=== PATIENT | male | born 1960 | race Caucasian/White ===

== ENCOUNTER 2020-09-18 16:46 | Outpatient (REF) | payer OTHER, SELFPAY | END 2020-09-18 16:47 | disposition home or self-care (01) | LOC: HO.LAB 16:46 | PROVIDERS: Visit Provider Internal Medicine | DX: Z20.828 Contact with and (suspected) exposure to other viral communicable diseases (principal) | CPT/HCPCS: C9803; U0003 ==

== ENCOUNTER → 2021-01-25 15:49 | Outpatient (BNVA) | payer OTHER, SELFPAY | PROVIDERS: PCP Internal Medicine; Visit Provider Urology ==

== ENCOUNTER 2021-01-26 06:03 | Outpatient (REF) | payer OTHER, SELFPAY ==
[2021-01-26 06:58] LABS: MANUAL DIFF FLAG NO
[2021-01-26 07:06] LABS: Basophils Absolute Auto 0.1 X10*3/uL (0.0-0.2); Basophils Percent Auto 0.9 % (0-2); Eosinophils Absolute Auto 0.4 X10*3/uL (0.0-0.4); Eosinophils Percent Auto 7.1 % (0-4); Hematocrit 39.1 % (42-52); Hemoglobin 12.9 g/dl (14.0-18.0); Imm Gran Abs Auto 0.01 X10*3/uL (0.00-0.03); Imm Gran Pct Auto 0.2 % (0.0-0.4); Lymphocytes Absolute Auto 1.8 X10*3/uL (1.2-4.9); Mean Corpuscular Hemoglobin 30.3 pg (27.0-33.0); Mean Corpuscular Volume 91.8 fL (80-98); Mean Platelet Volume 10.3 fL (9.4-12.4); Monocytes Absolute Auto 0.6 X10*3/uL (0.1-1.2); Monocytes Percent Auto 10.2 % (2-11); Neutrophils Absolute Auto 2.8 X10*3/uL (2.0-8.3); Neutrophils Percent Auto 49.6 % (45-73); Platelet Count 239 X10*3/uL (160-400); Red Blood Count 4.26 X10*6/uL (4.60-5.80); Red Cell Distribution Width 12.7 % (11.0-16.0); White Blood Count 5.7 X10*3/uL (4.8-10.8)
[2021-01-26 07:26] LABS: Alanine Aminotransferase 30 U/L (0-40); Albumin Level 4.4 g/dL (3.5-5.0); Alkaline Phosphatase 54 U/L (39-117); Anion Gap 13 (12-20); Aspartate Amino Transferase 19 U/L (5-37); Bilirubin Total 0.7 mg/dL (0.0-1.0); Blood Urea Nitrogen 25 mg/dL (9-16); Calcium 9.9 mg/dL (8.4-10.2); Carbon Dioxide 29 mmol/L (22-29); Chloride 105 mmol/L (96-108); Cholesterol 150 mg/dL; Estimated Glomerular Filt Rate > 60; Glucose Fasting 118 mg/dL (60-99); HDL Cholesterol 52 mg/dL; LDL Cholesterol Calculated 77 mg/dl; Potassium 4.4 mmol/L (3.3-5.1); Sodium 143 mmol/L (135-145); Total Protein 6.9 g/dL (6.5-8.0); Triglycerides 106 mg/dL
[2021-01-26 07:47] LABS: Thyroid Stimulating Hormone 1.56 uIU/mL (0.32-4.0)
== END 2021-01-26 06:04 | disposition home or self-care (01) ==
LOC: HO.LAB 06:03
PROVIDERS: PCP Internal Medicine; Visit Provider Internal Medicine
DX: Z00.00 Encounter for general adult medical examination without abnormal findings (principal); E11.9 Type 2 diabetes mellitus without complications; E03.9 Hypothyroidism, unspecified
CPT/HCPCS: 36415; 80053; 80061; 84443; 85025

== ENCOUNTER 2021-10-12 13:46 | Outpatient (REF) | payer OTHER, SELFPAY ==
--- NOTE | ~2021-10-12 | XR_ITS ---
EXAMINATION: XR RIBS, LEFT CLINICAL INFORMATION: Chest pain COMPARISON: Left rib x-rays 08/17/2019 TECHNIQUE: 3 views of the left ribs were obtained. FINDINGS: Artifact silhouette is normal in size. Lungs are mildly hypoinflated. Subtle bibasilar linear opacities are most suggestive of atelectasis. Minimally displaced fractures of the left lateral seventh and eighth ribs. Surgical changes of the left shoulder. XR/XR ribs LT min 3V w CXR1V IMPRESSION: Minimally displaced fractures of the left lateral seventh and eighth ribs. No pneumothorax. Findings to be called to the ordering clinician by a [place] Radiology Physician Terrazzo Journeyman.
== END 2021-10-12 13:47 | disposition home or self-care (01) ==
LOC: HO.XRAY 13:46
PROVIDERS: PCP Internal Medicine; Visit Provider Internal Medicine
DX: R07.9 Chest pain, unspecified (principal)
CPT/HCPCS: 71101

== ENCOUNTER 2022-06-11 17:00 | Outpatient (RCR) | payer OTHER, SELFPAY ==
--- NOTE | 2022-04-26 13:53 | MHC.PT.EP ---
[facility] [place] Office [place] Office [place] Office [address] [place] [address] [phone] F: [phone] F: [phone] F: [phone] F: [phone] Physical Therapy Plan of Care Date of Evaluation: Date of Surgery: N/A Diagnosis: myalgia (RC) Assessment: pt is a 62 y/o male presenting to physical therapy w/ referring diagnosis of myalgia. Signs and symptoms consistent w/ lumbar radiculopathy. Impairments include pain, decreased range of motion, decreased strength, impaired functional mobility, impaired postural awareness, and gait deviations. pt is a good candidate for skilled PT due to age, potential remediation of impairments, typical disease/condition progression and prognosis, comorbidities, and motivation. pt would benefit from tailored strengthening and stretching exercise program, functional training, gait training, postural re-training, neuromuscular re-education, modalities as needed for pain, equipment safety demonstration. Frequency and Duration: The patient will be seen 2x/wk for 6 wks Short Term Goals: pt will be I w/ HEP to promote self-management of condition. pt will demo proper seated posture w/ lumbar roll to promote neutral spine w/ seated ADLs. Water Service Supervisor Goals: pt will demo proper lifting mechanics x5 reps w/ no verbal cueing to promote neutral spine w/ work-related tasks. pt will report a statistically significant improvement in self-reported outcome measure to promote return to PLOF. Treatment Plan: Modalities to reduce pain, spasms and effusion. Manual therapy to restore motion and function. Therapeutic exercise to improve strength and flexibility. Neuromuscular re-education for posture and balance. Therapeutic activities to return to functional activities of daily living. Electronically signed by: Dia Vincent PT, DPT Please sign and return to therapist. Thank you for your referral.
--- NOTE | 2022-07-04 10:17 | MHC.PT.DC ---
[facility] [place] Office [place] Office [place] Office [address] [place] [address] [phone] F: [phone] F: [phone] F: [phone] F: [phone] Physical Therapy Discharge Report Diagnosis: myalgia (RC) Date of Surgery: N/A Date of Evaluation: 04/24/22 Date of Discharge: 07/04/22 Treatments to Date: 9 Cancellations to Date: 4 No Shows to Date: 0 Discharge Status: Patient Elected to Stop Discharge Summary: The patient discovered he had a $50 co-pay for his physical therapy visits and stated this was too much of a financial commitment to continue with his rehab at this time. He was making significant improvement in his pain frequency and intensity. His radicular symptoms centralized quickly with a repeated lumbar extension protocol. He was instructed in a spinal and core stability program as well as general lower extremity stretching with which he is independent with at this time. The patient was instructed to continue with his exercise program at this time and he is discharged from this physical therapy plan of care per his request. Electronically signed by: Dia Vincent PT, DPT Please sign and return to therapist. Thank you for your referral.
== END 2022-07-04 10:17 | disposition home or self-care (01) ==
LOC: HO.PT 17:00
PROVIDERS: Visit Provider Nurse Practitioner Family
DX: M79.18 Myalgia, other site (principal)
CPT/HCPCS: 97110; 97162; 97530

== ENCOUNTER → 2022-07-05 14:58 | Outpatient (BNVA) | payer OTHER, SELFPAY | PROVIDERS: PCP Internal Medicine; Visit Provider Urology | DX: N52.01 Erectile dysfunction due to arterial insufficiency (principal); N32.0 Bladder-neck obstruction | CPT/HCPCS: 51798; 99212 ==

== ENCOUNTER 2022-07-22 06:10 | Outpatient (REF) | payer OTHER, SELFPAY ==
[2022-07-22 07:30] LABS: Hematocrit 39.2 % (42.0-52.0); Mean Corpuscular HGB Conc 33.2 g/dl (31.0-36.0); Mean Corpuscular Hemoglobin 30.1 pg (27.0-33.0); Mean Corpuscular Volume 90.7 fL (80.0-98.0); Mean Platelet Volume 10.4 fL (9.4-12.4); Platelet Count 242 X10*3/uL (160-400); Red Blood Count 4.32 X10*6/uL (4.60-5.80); Red Cell Distribution Width 12.5 % (11.0-16.0); White Blood Count 6.3 X10*3/uL (4.8-10.8)
[2022-07-22 08:07] LABS: Alanine Aminotransferase 33 U/L (0-40); Albumin Level 4.4 g/dL (3.5-5.0); Alkaline Phosphatase 58 U/L (39-117); Anion Gap 16 (12-20); Aspartate Amino Transferase 21 U/L (5-37); Bilirubin Total 0.8 mg/dL (0.0-1.0); Blood Urea Nitrogen 20 mg/dL (9-16); Calcium 9.3 mg/dL (8.4-10.2); Carbon Dioxide 27 mmol/L (22-29); Chloride 103 mmol/L (96-108); Cholesterol 175 mg/dL; Estimated Glomerular Filt Rate > 60; Glucose Fasting 116 mg/dL (60-99); HDL Cholesterol 61 mg/dL; LDL Cholesterol Calculated 72 mg/dl; Potassium 4.3 mmol/L (3.3-5.1); Sodium 142 mmol/L (135-145); Triglycerides 213 mg/dL
[2022-07-22 08:33] LABS: Prostate Specific Antigen 0.66 ng/mL (<0.05-4.0); TSH reflex Free T4 1.69 uIU/mL (0.32-4.0)
[2022-07-22 08:34] LABS: Folate > 20.0 ng/mL (> or = 4.0); Vitamin B12 499 pg/mL (200-900)
== END 2022-07-22 06:11 | disposition home or self-care (01) ==
LOC: HO.LAB 06:10
PROVIDERS: Absent Provider Urology; PCP Internal Medicine; Visit Provider Nurse Practitioner Family
DX: Z00.00 Encounter for general adult medical examination without abnormal findings (principal); Z12.5 Encounter for screening for malignant neoplasm of prostate; N32.0 Bladder-neck obstruction
CPT/HCPCS: 36415; 80053; 80061; 82306; 82607; 82746; 84153; 84443; 85027

== ENCOUNTER 2022-08-15 16:11 | Outpatient (REF) | payer OTHER, SELFPAY ==
[2022-08-16 08:58] LABS: Estimated Average Glucose 100 mg/dL; Hemoglobin A1c % 5.1 %
== END 2022-08-15 16:12 | disposition home or self-care (01) ==
LOC: HO.LAB 16:11
PROVIDERS: PCP Internal Medicine; Visit Provider Nurse Practitioner Family
DX: R73.01 Impaired fasting glucose (principal); Z12.5 Encounter for screening for malignant neoplasm of prostate
CPT/HCPCS: 36415; 83036; 84153

== ENCOUNTER 2022-10-03 12:54 | Day surgery (SDC) | payer OTHER, SELFPAY ==
[2022-10-03 13:05] VITALS: BMI 33.0
[2022-10-03 13:20] VITALS: BP 178/95; PULSE 81; RESP 16; TEMP 36.9; O2SAT 96
[2022-10-03] MEDS: Lactated Ringers 1,000 ML 80 ML IVCONT (13:30)
--- NOTE | 2022-10-03 14:04 | HO.ANESPROP2 ---
HPI - Anesthesia Eval Consult details Narrative: 62 M w/ hiatal hernia, GERD, HARMAN not on CPAP, p/f EGD PMFSH Active Problems Active Problems: All Active Problems (Updated 10/02/22 @ 09:54 by Toya Bay RN) Bladder outlet obstruction (Acute) Erectile dysfunction due to arterial insufficiency (Acute) Left-sided chest pain (Acute) Left buttock pain (Acute) Adult general medical exam (Acute) Obesity (BMI 30.0-34.9) (Acute) Elevated fasting glucose (Acute) Eczema (Acute) Nocturia (Acute) Hypertension (Acute) Past Medical History Medical History Anemia Atherosclerotic cardiovascular disease Barretts esophagus Basal cell carcinoma of skin BPH (benign prostatic hyperplasia) Chest discomfort COPD (chronic obstructive pulmonary disease) Eczema Fall GERD (gastroesophageal reflux disease) Hematoma of right lower leg Hiatal hernia Hypertension Nocturia Other and unspecified hyperlipidemia Sinus infection 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 Brother No problems noted. Brother No problems noted. Brother No problems noted. Sister No problems noted. Sister No problems noted. Sister No problems noted. Sister No problems noted. Son No problems noted. Son No problems noted. Daughter No problems noted. Family history of problems with anesthesia: No Surgical History Surgical History H/O shoulder surgery History of colonoscopy S/P LASIK surgery of both eyes History of Problems with Anesthesia: No Social History Social History Housing: House Alcohol intake: current Alcohol intake frequency: 0-2 drinks per day Patient Tobacco Use Status: Former Tobacco user Tobacco use type: Cigarette e-Cigarette/Vaping Use: Never Used Second Hand Smoke Exposure: No Use of substances other than those prescribed or required for medical reasons: No Are you DNR?: No Advance Directives: No Advance Directives Information Provided: Yes service: No Current occupational status: employed Cognitive needs: No Hearing needs: No Vision needs: No Meds Allergies Allergy/AdvReac Type Severity Reaction Status Date / Time ciprofloxacin [From Cipro] Allergy Mild SWELLING, Verified 07/01/22 16:25 anaphylaxis Home Medications Medication Instructions Recorded Confirmed Last Taken Type aspirin 81 mg tablet,delayed 81 mg PO DAILY 09/05/20 10/03/22 09/26/22 History release (Adult Low Dose Aspirin) omeprazole 20 mg capsule,delayed 20 mg PO DAILY 10/02/22 10/03/22 Unknown History release fluticasone propionate 220 1 puff inhalation BID 10/03/22 10/03/22 Unknown History mcg/actuation HFA aerosol inhaler (Flovent HFA) Exam Exam Date and Time: October 03, 2022 1404 Height,Weight and Vital Signs: Height 5 ft 6 in Weight 205 lb Last Vital Signs Temp 98.4 F 10/03/22 13:20 Pulse 81 10/03/22 13:20 Resp 16 10/03/22 13:20 BP 178/95 H 10/03/22 13:20 Pulse Ox 96 10/03/22 13:20 O2 Del Method 10/03/22 13:20 Airway Mallampati Class: III TM Dist: >3cm Neck ROM: Full Loose/Missing/Broken Teeth: Yes Assessment and Plan Assessment Anesthesia Assessment: Anesthesia Plan Discussed and Chart Reviewed Final Anesthetic Review Family History of Problems with Anesthesia: No History of Problems with Anesthesia: No NPO: Yes ASA Class: III Final Preanesthetic Review: No Changes in Pt Med Stat, Meds/Allgs Chart Reviewed, Consent Obtained/Reviewed and Anes Risks/Benef Reviewed Patient Risk: Intermediate Procedure Risk: Low Anesthetic Plan Anesthetic Plan: MAC: Disposition: Standard PACU
[2022-10-03 14:47] VITALS: BP 147/80; PULSE 80; RESP 18; TEMP 36.9; O2SAT 92
--- NOTE | 2022-10-03 14:57 | P.BOP_ITS ---
Brief Operative Note Date of Service: 10/03/22 Pre-op diagnosis: GERD, Graham's Post-op diagnosis: other (Same, Hiatal hernia) Procedure: EGD with biopsies Surgeon: Myron Trujillo Anesthesia: MAC Was an Snath Handle Assembler used for this Procedure?: No Estimated blood loss (mL): 2.0 Pathology: other (A. EG Junction at 35cm) Condition: stable Disposition: PACU
[2022-10-03 15:02] VITALS: BP 154/80; PULSE 68; RESP 16; TEMP 36.8; O2SAT 95
--- NOTE | 2022-10-03 22:22 | OP_ITS ---
SURGEON: Myron Trujillo MD INDICATIONS: The patient presents for followup of gastroesophageal reflux and Graham's esophagus. Full consent has been obtained from him for this, including risks of bleeding and perforation. PREOPERATIVE DIAGNOSIS: POSTOPERATIVE DIAGNOSIS: PROCEDURE PERFORMED: Esophagogastroduodenoscopy with biopsies. ESTIMATED BLOOD LOSS: COMPLICATIONS: ANESTHESIA: Monitored anesthesia care. ASSISTANTS: SPECIMENS: PREOPERATIVE DIAGNOSES: Gastroesophageal reflux and Graham's esophagus. POSTOPERATIVE DIAGNOSES: Gastroesophageal reflux and Graham's esophagus, hiatal hernia. DESCRIPTION OF PROCEDURE: The patient was placed in the left lateral decubitus position. The Olympus video gastroscope was passed in the posterior oropharynx and upper esophagus under direct vision. The scope was passed slowly to the distal esophagus. The gastroesophageal junction appeared at 35 cm. There was a very minimal irregularity but no evidence of esophagitis nor any definitive evidence of Graham's mucosa. The scope entered into the stomach. There was a small to moderate-sized hiatal hernia. The hiatal hernia mucosa appeared normal. The scope was advanced to the pylorus, and the duodenum was cannulated to the descending portion. The duodenum including the bulb appeared normal without mass or ulceration. The scope was withdrawn back to the stomach. The gastric antrum and body appeared normal with good peristalsis. The scope was retroflexed visualizing the proximal stomach carefully which appeared normal, without any sign of mass or ulceration. The scope was straightened and withdrawn back to the esophagus. Multiple biopsies were obtained at the EG junction at 35 cm. Proximal to this, the esophageal mucosa appeared normal. The scope was withdrawn from the patient. He tolerated the procedure well and was returned to the recovery area in stable condition. IMPRESSION: Hiatal hernia, gastroesophageal reflux, history of Graham's esophagus. PLAN: The results of the biopsies will be checked. If there is evidence of Graham's esophagus without dysplasia, I would recommend a repeat upper endoscopy in 3 years. If there are no changes of Graham esophagus seen on today's biopsies, then I would probably hold off on any further upper endoscopies given that the initial endoscopy in 2019 had revealed only a tiny area of the Graham's mucosa. I did advise him to continue his daily omeprazole. He was advised to resume his aspirin in 1 week. He was advised not to use any NSAIDs for 1 week. He was advised to continue to try to watch his diet and not eat for several hours before bedtime in order to minimize reflux symptoms as well. MD MORRO Kenyon/EL / [phone] MTDD
== END 2022-10-03 15:49 | disposition home or self-care (01) ==
PROVIDERS: PCP Internal Medicine; Visit Provider Internal Medicine
PROC: 0DJ08ZZ Inspection of Upper Intestinal Tract, Via Natural or Artificial Opening Endoscopic (ICD-10-PCS; CPT 43235; principal; 2022-10-03 14:00)
DX: K21.9 Gastro-esophageal reflux disease without esophagitis (principal); K22.70 Barrett's esophagus without dysplasia; K44.9 Diaphragmatic hernia without obstruction or gangrene; Z79.899 Other long term (current) drug therapy; Z79.82 Long term (current) use of aspirin; Z88.1 Allergy status to other antibiotic agents; Z87.891 Personal history of nicotine dependence
CPT/HCPCS: 43239; 88305

== ENCOUNTER 2023-05-06 09:33 | Outpatient (AMB) | payer OTHER, SELFPAY ==
--- NOTE | 2023-05-06 09:35 | MHC.PC.OV ---
Vital Signs 05/06/23 09:37 Height 5 ft 6 in Weight 215 lb 6 oz BMI 34.8 BP 130/70 Blood Pressure Location Lt brachial Position Sitting Pulse 62 Pulse Source Pulse Oximeter Pulse Oximetry (%) 95 Oxygen Delivery Method Room Air Intake Visit Reasons: Medication review Intake Note: Patient is here to follow up on medication review. Complain of rash on lower back, and sharp pain in left toes. Machine Featheredger And Reducer Required: No Director Of Accounts Payable: Not Required per policy Accompanied by: Self / Same As Patient Allergies ciprofloxacin [From Cipro] Allergy (Mild, Verified 05/06/23 09:37) SWELLING, anaphylaxis Medication List - Last Reconciled 05/06/23 by Aren Vaughn MD aspirin (Adult Low Dose Aspirin) 81 mg PO DAILY atorvastatin 80 mg PO DAILY fluticasone propionate 220 mcg/actuation (Flovent HFA) 1 puff inhalation BID fluticasone propionate 50 mcg/actuation 1 spray intranasal DAILY hydrochlorothiazide 25 mg PO QAM lisinopril 40 mg PO DAILY metoprolol succinate ER 25 mg PO DAILY omeprazole 20 mg PO DAILY sildenafil 100 mg PO DAILY PRN 30 days tamsulosin 0.4 mg PO BEDTIME 90 days tiotropium bromide 1 cap PO DAILY 90 days Tobacco use date assessed: 05/06/23 Fall risk assessment: 1 Fall in past year Last assessed Fall Risk: 05/06/23 Dental Screening Dental Screen Date: 05/06/23 Did you have a dental visit in the last 12 months?: Yes Did you have a dental problem in the last 6 months where you did not have access to dental care?: No Was dental information given to patient?: Patient has dentist HPI Medication review HPI Details HTN hyperlipidemia and GERD on rx; stable [facility] Medical History (Updated 05/06/23 @ 09:55 by Aren Vaughn MD) Anemia Atherosclerotic cardiovascular disease Barretts esophagus Basal cell carcinoma of skin BPH (benign prostatic hyperplasia) Chest discomfort COPD (chronic obstructive pulmonary disease) Eczema Fall GERD (gastroesophageal reflux disease) Hematoma of right lower leg Hiatal hernia Hypertension Nocturia Other and unspecified hyperlipidemia Sinus infection 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 Brother No problems noted. Brother No problems noted. Brother No problems noted. Sister No problems noted. Sister No problems noted. Sister No problems noted. Sister No problems noted. Son No problems noted. Son No problems noted. Daughter No problems noted. Social History Housing: House Alcohol intake: current Alcohol intake frequency: 0-2 drinks per day Patient Tobacco Use Status: Former Tobacco user Tobacco use type: Cigarette e-Cigarette/Vaping Use: Never Used Second Hand Smoke Exposure: No service: No Current occupational status: employed Cognitive needs: No Hearing needs: Yes (hearing aide) Vision needs: Yes (glasses) Questionnaire PHQ-9 Over the last 2 weeks, how often have you been bothered by any of the following problems? 1. Little interest or pleasure in doing things: not at all 2. Feeling down, depressed, or hopeless: not at all 3. Trouble falling or staying asleep, or sleeping too much: not at all 4. Feeling tired or having little energy: not at all 5. Poor appetite or overeating: not at all 6. Feeling bad about yourself - or that you are a failure or have let yourself or your family down: not at all 7. Trouble concentrating on things, such as reading the newspaper or watching television: not at all 8. Moving or speaking so slowly that other people could have noticed. Or the opposite - being so fidgety or restless that you have been moving around a lot more than usual: not at all 9. Thoughts that you would be better off or of hurting yourself in some way: not at all Total score: 0 Depression Screening Interpretation: Negative 04764 - PHQ-9 Billing: Yes Source: Developed by Drs. Myron Coleman, Izabella Brenner, Jeffry Martin and colleagues, with an educational violette from [employer]. Thrive Questionnaire Date Thrive assessed: 05/06/23 I am a: Patient What is your living situation today?: I have a steady place to live Within the past 12 months, did the food you bought not last and you didn't have the money to get more?: Never true Within the past 12 months, did you worry whether your food would run out before you got money to buy more?: Never true Do you have trouble paying for medicines?: No Do you have trouble getting transportation to medical appointments?: No Do you have trouble paying your heating and electricity bill?: No Do you have trouble taking care of your child, family member or friend?: No Do you have trouble with day-to-day activities such as bathing, preparing meals, shopping, managing finances, etc.?: No Are you currently unemployed and looking for a job?: No Are you interested in more education?: No Currently or been in a relationship where the following occur: no concerns reported AUDIT C Alcohol Use Questionnaire (AUDIT-C) 1. How often do you have a drink containing alcohol?: 4 or more times a week 2. How many drinks containing alcohol do you have on a typical day when you are drinking?: 1 or 2 Total Score: 4 Score Reviewed/Action Taken: Yes DAV-7 AMB Questionnaire DAV-7 Date DAV - 7 assessed: 05/06/23 Feeling nervous, anxious, or on edge: 0 = Not at all Not being able to stop or control worryin = Not at all Worrying too much about different things: 0 = Not at all Trouble relaxin = Not at all Being so restless that it is hard to sit still: 0 = Not at all Becoming easily annoyed or irritable: 0 = Not at all Feeling afraid as if something awful might happen: 0 = Not at all Total DAV-7 score (0-4 normal; 5-9 mild; 10-14 moderate; 15-21 severe): 0 Source: Developed by Drs. Myron Coleman, Izabella Brenner, Jeffry Martin and colleagues, with an educational violette from [employer]. DAV-7 Assessment Billing DAV-7 Assessment Tool: DAV-7 Assessment 57060 Review of Systems Const Denies chills, Denies headache(s) and Denies weight loss ENT Denies headache(s) Card Denies chest pain, Denies syncope, Denies irregular heart rhythm and Denies dyspnea Resp Denies chest congestion, Denies cough and Denies dyspnea GI Denies abdominal pain, Denies change in stool character, Denies nausea and Denies vomiting Musc Denies deformity and Denies joint swelling Neuro Denies syncope and Denies headache(s) Physical exam (Primary Care) Vital Signs: Last Vital Signs Pulse 62 05/06/23 09:37 BP 130/70 05/06/23 09:37 Pulse Ox 95 05/06/23 09:37 Oxygen Delivery Method Room Air 05/06/23 09:37 BMI result Body Mass Index 34.8 Tobacco/Smoking Status: Tobacco use Status Tobacco use date assessed 05/06/23 05/06/23 09:44 Patient Tobacco Use Status Former Tobacco user 05/06/23 09:44 Tobacco use type Cigarette 05/06/23 09:44 e-Cigarette/Vaping Use Never Used 05/06/23 09:44 PHQ-9: PHQ-9 Score PHQ-9: Total score 0 05/06/23 09:44 Depression Screening Interpretation: Negative Thrive Assessment: Date of Thrive Assessment Date Thrive assessed 05/06/23 05/06/23 09:44 Currently or been in a relationship where the following occur: no concerns reported Const General: cooperative and no acute distress Orientation/consciousness: patient oriented x3 HENMT Head: Yes normocephalic and Yes atraumatic Ears: TM's normal bilaterally General nose exam: Normal nasal mucous membranes and turbinates present Face and sinus: Yes sinuses nontender Mouth: oropharynx normal and moist mucous membranes Throat: Yes posterior oropharynx normal Eyes General: appearance normal, both eyes and all related structures Pupils: Equal, round and reactive pupils present EOM: EOMs intact bilaterally Neck Neck: Yes normal visual inspection, Yes full ROM and Yes no lymphadenopathy Thyroid: Thyroid normal Resp Effort & Inspection: normal respiratory effort and able to speak in complete sentences Auscultation: clear to auscultation bilaterally, no crackles, no rales, no rhonchi and no wheezes Cardio Rate: regular rate Rhythm: regular rhythm Heart sounds: S1 normal heart sound present, S2 normal heart sound present and no murmurs GI Palpation (GI): Soft to palpation, not firm, nontender, no guarding, not rigid and no hepatosplenomegaly Auscultation: normal bowel sounds General: No CVA tenderness Back/Spine/Pelvis Back: No CVA tenderness Skin General skin exam: no rashes or lesions noted Neuro General: patient oriented x3 Cranial nerves: Yes Equal, round and reactive pupils present Gait exam (Neuro): Normal gait present Extrem General: Yes full ROM and No edema Assessment and Plan Assessment & Plan (1) Hypertension: Code(s): I10 - Essential (primary) hypertension Plan: do labs (2) Hyperlipidemia: Code(s): E78.5 - Hyperlipidemia, unspecified Plan: stable; same meds (3) Chronic GERD: Code(s): K21.9 - Gastro-esophageal reflux disease without esophagitis Plan: stable; same meds Orders: Orders Comprehensive [place]. Panel Fast Today N28.9 - Disorder of kidney and ureter, unspecified Lipid Panel Today E78.5 - Hyperlipidemia, unspecified Prostate Specific Antigen Scr Today Z00.00 - Encounter for general adult medical examination without abnormal findings Thyroid Stimulating Hormone Today E03.9 - Hypothyroidism, unspecified Complete Blood Count Auto Diff Today D64.9 - Anemia, unspecified XR foot LT 2V Today M79.672 - Pain in left foot XR knee LT 2V Today M25.569 - Pain in unspecified knee Coding Level of Care Code Est Pt Level 4 (90000) Diagnoses Hypertension I10 Hyperlipidemia E78.5 Chronic GERD K21.9 Additional Codes DAV-7 Assessment Billing - DAV-7 Assessment Tool: DAV-7 Assessment 12757 ([id number])
[2023-05-06 09:37] VITALS: BP 130/70; PULSE 62; O2SAT 95; BMI 34.8
== END 2023-05-06 10:42 | disposition home or self-care (01) ==
PROVIDERS: PCP Internal Medicine; Visit Provider Internal Medicine
DX: I10 Essential (primary) hypertension (principal); E78.5 Hyperlipidemia, unspecified; K21.9 Gastro-esophageal reflux disease without esophagitis
CPT/HCPCS: 99214

== ENCOUNTER 2023-05-10 09:09 | Outpatient (REF) | payer OTHER, SELFPAY ==
[2023-05-10 09:19] LABS: MANUAL DIFF FLAG NO
[2023-05-10 10:14] LABS: Basophils Absolute Auto 0.1 X10*3/uL (0.0-0.2); Basophils Percent Auto 0.9 % (0-2); Eosinophils Absolute Auto 0.4 X10*3/uL (0.0-0.4); Eosinophils Percent Auto 7.6 % (0-4); Hematocrit 40.2 % (42.0-52.0); Hemoglobin 13.3 g/dl (14.0-18.0); Imm Gran Abs Auto 0.02 X10*3/uL (0.00-0.03); Imm Gran Pct Auto 0.4 % (0.0-0.4); Lymphocytes Absolute Auto 1.8 X10*3/uL (1.2-4.9); Lymphocytes Percent Auto 32.2 % (20-40); Mean Corpuscular HGB Conc 33.1 g/dl (31.0-36.0); Mean Corpuscular Hemoglobin 30.2 pg (27.0-33.0); Mean Corpuscular Volume 91.2 fL (80.0-98.0); Mean Platelet Volume 10.2 fL (9.4-12.4); Monocytes Absolute Auto 0.4 X10*3/uL (0.1-1.2); Monocytes Percent Auto 7.6 % (2-11); Neutrophils Absolute Auto 2.8 x10*3/uL (2.0-8.3); Neutrophils Percent Auto 51.3 % (45-73); Platelet Count 248 X10*3/uL (160-400); Red Blood Count 4.41 X10*6/uL (4.60-5.80); Red Cell Distribution Width 12.9 % (11.0-16.0); White Blood Count 5.5 X10*3/uL (4.8-10.8)
[2023-05-10 12:07] LABS: Alanine Aminotransferase 34 U/L (0-40); Albumin Level 4.3 g/dL (3.5-5.0); Alkaline Phosphatase 62 U/L (39-117); Anion Gap 14 (12-20); Aspartate Amino Transferase 21 U/L (5-37); Bilirubin Total 0.9 mg/dL (0.0-1.0); Blood Urea Nitrogen 22 mg/dL (9-16); Calcium 9.1 mg/dL (8.4-10.2); Carbon Dioxide 25 mmol/L (22-29); Chloride 106 mmol/L (96-108); Cholesterol 150 mg/dL; Estimated Glomerular Filt Rate > 60; Glucose Fasting 97 mg/dL (60-99); HDL Cholesterol 65 mg/dL; LDL Cholesterol Calculated 61 mg/dl; Potassium 4.1 mmol/L (3.3-5.1); Sodium 141 mmol/L (135-145); Total Protein 7.1 g/dL (6.5-8.0); Triglycerides 122 mg/dL
[2023-05-10 12:08] LABS: Thyroid Stimulating Hormone 1.49 uIU/mL (0.32-4.0)
== END 2023-05-10 09:10 | disposition home or self-care (01) ==
LOC: HO.XRAY 09:09
PROVIDERS: PCP Internal Medicine; Visit Provider Internal Medicine
DX: Z00.00 Encounter for general adult medical examination without abnormal findings (principal); E03.9 Hypothyroidism, unspecified; E78.5 Hyperlipidemia, unspecified; N28.9 Disorder of kidney and ureter, unspecified; D64.9 Anemia, unspecified
CPT/HCPCS: 36415; 80053; 80061; 84153; 84443; 85025

== ENCOUNTER 2023-05-12 16:28 | Outpatient (REF) | payer OTHER, SELFPAY ==
--- NOTE | ~2023-05-12 | XR_ITS ---
EXAMINATION: XR FOOT, LEFT CLINICAL INFORMATION: Pain in the left foot COMPARISON: None available. TECHNIQUE: AP, lateral, and oblique views of the left foot. FINDINGS: No evidence for acute fracture or dislocation. Small spurring changes at the base of distal phalanx of the great toe and at the head of middle phalanx of the second toe. Slight narrowing of the first and fifth MTP joints. There is a minimal plantar calcaneal spur. XR/XR foot LT 2V IMPRESSION: No acute process. Degenerative changes as described.
--- NOTE | ~2023-05-12 | XR_ITS ---
EXAMINATION: XR KNEE, LEFT CLINICAL INFORMATION: Left knee pain COMPARISON: None available. TECHNIQUE: Two views of the left knee. FINDINGS: No evidence for acute fracture or dislocation. Slight narrowing in the medial joint space compartment. Tibial plateau unremarkable. There is minimal spurring of the superior patella. No significant joint effusion. XR/XR knee LT 2V IMPRESSION: No acute process. Slight narrowing in the medial joint space compartment.
== END 2023-05-12 16:29 | disposition home or self-care (01) ==
LOC: HO.XRAY 16:28
PROVIDERS: PCP Internal Medicine; Visit Provider Internal Medicine
DX: M79.672 Pain in left foot (principal); M25.562 Pain in left knee
CPT/HCPCS: 73560; 73620

== ENCOUNTER 2023-06-18 11:21 | Outpatient (AMB) | payer OTHER, SELFPAY ==
--- NOTE | 2023-06-18 11:24 | MHC.PC.OV ---
Vital Signs 06/18/23 11:25 Height 5 ft 6 in Weight 210 lb BMI 33.9 BP 138/76 Blood Pressure Location Lt brachial Position Sitting Pulse 80 Pulse Source Pulse Oximeter Pulse Oximetry (%) 95 Oxygen Delivery Method Room Air Intake Visit Reasons: left leg pain Hog Tender: Not Required per policy Accompanied by: Self / Same As Patient Allergies ciprofloxacin [From Cipro] Allergy (Mild, Verified 06/18/23 11:25) SWELLING, anaphylaxis Medication List - Last Reconciled 06/18/23 by Aren Vaughn MD aspirin (Adult Low Dose Aspirin) 81 mg PO DAILY atorvastatin 80 mg PO DAILY cyclobenzaprine 10 mg PO TID PRN fluticasone propionate 220 mcg/actuation (Flovent HFA) 1 puff inhalation BID fluticasone propionate 50 mcg/actuation 1 spray intranasal DAILY hydrochlorothiazide 25 mg PO QAM lisinopril 40 mg PO DAILY metoprolol succinate ER 25 mg PO DAILY omeprazole 20 mg PO DAILY sildenafil 100 mg PO DAILY PRN 30 days tamsulosin 0.4 mg PO BEDTIME 90 days tiotropium bromide 1 cap PO DAILY 90 days Tobacco use date assessed: 05/06/23 Fall risk assessment: No Falls in past year Last assessed Fall Risk: 06/18/23 Dental Screening Dental Screen Date: 06/18/23 Did you have a dental visit in the last 12 months?: Yes Did you have a dental problem in the last 6 months where you did not have access to dental care?: No Was dental information given to patient?: Patient has dentist HPI left leg pain HPI Details left calf swollen and tender for a week PFSH Medical History Basal cell carcinoma of skin Barretts esophagus Anemia Hiatal hernia GERD (gastroesophageal reflux disease) BPH (benign prostatic hyperplasia) COPD (chronic obstructive pulmonary disease) Sinus infection Hematoma of right lower leg Fall Eczema Weak urinary stream Nocturia Stenosis of left anterior descending (LAD) artery Atherosclerotic cardiovascular disease Chest discomfort Other and unspecified hyperlipidemia Hypertension URI (upper respiratory infection) Surgical History H/O shoulder surgery S/P LASIK surgery of both eyes History of colonoscopy Family History Mother Hypertension Diabetes Father Hypertension CAD (coronary artery disease) Brother No problems noted. Brother No problems noted. Brother No problems noted. Brother No problems noted. Sister No problems noted. Sister No problems noted. Sister No problems noted. Sister No problems noted. Son No problems noted. Son No problems noted. Daughter No problems noted. Social History Housing: House Alcohol intake: current Alcohol intake frequency: 0-2 drinks per day Patient Tobacco Use Status: Former Tobacco user Tobacco use type: Cigarette e-Cigarette/Vaping Use: Never Used Second Hand Smoke Exposure: No service: No Current occupational status: employed Cognitive needs: No Hearing needs: Yes (hearing aide) Vision needs: Yes (glasses) Questionnaire PHQ-9 Over the last 2 weeks, how often have you been bothered by any of the following problems? 1. Little interest or pleasure in doing things: not at all 2. Feeling down, depressed, or hopeless: not at all 3. Trouble falling or staying asleep, or sleeping too much: not at all 4. Feeling tired or having little energy: not at all 5. Poor appetite or overeating: not at all 6. Feeling bad about yourself - or that you are a failure or have let yourself or your family down: not at all 7. Trouble concentrating on things, such as reading the newspaper or watching television: not at all 8. Moving or speaking so slowly that other people could have noticed. Or the opposite - being so fidgety or restless that you have been moving around a lot more than usual: not at all 9. Thoughts that you would be better off or of hurting yourself in some way: not at all Total score: 0 Depression Screening Interpretation: Negative 15296 - PHQ-9 Billing: Yes Source: Developed by Drs. Myron Coleman, Izabella Brenner, Jeffry Martin and colleagues, with an educational violette from [employer]. Thrive Questionnaire Date Thrive assessed: 05/06/23 AUDIT C Alcohol Use Questionnaire (AUDIT-C) 1. How often do you have a drink containing alcohol?: 4 or more times a week 2. How many drinks containing alcohol do you have on a typical day when you are drinking?: 1 or 2 Total Score: 4 Score Reviewed/Action Taken: Yes DAV-7 AMB Questionnaire DAV-7 Date DAV - 7 assessed: 05/06/23 Source: Developed by Drs. Myron Coleman, Izabella Brenner, Jeffry Martin and colleagues, with an educational violette from [employer]. Review of Systems Const Denies chills, Denies headache(s) and Denies weight loss ENT Denies headache(s) Card Denies chest pain, Denies syncope, Denies irregular heart rhythm and Denies dyspnea Resp Denies chest congestion, Denies cough and Denies dyspnea GI Denies abdominal pain, Denies change in stool character, Denies nausea and Denies vomiting Musc Denies deformity and Denies joint swelling Neuro Denies syncope and Denies headache(s) Physical exam (Primary Care) Vital Signs: Last Vital Signs Pulse 80 06/18/23 11:25 BP 138/76 06/18/23 11:25 Pulse Ox 95 06/18/23 11:25 Oxygen Delivery Method Room Air 06/18/23 11:25 BMI result Body Mass Index 33.9 Tobacco/Smoking Status: Tobacco use Status Tobacco use date assessed 05/06/23 06/18/23 11:26 Patient Tobacco Use Status Former Tobacco user 06/18/23 11:26 Tobacco use type Cigarette 06/18/23 11:26 e-Cigarette/Vaping Use Never Used 06/18/23 11:26 PHQ-9: PHQ-9 Score PHQ-9: Total score 0 06/18/23 11:26 Depression Screening Interpretation: Negative Thrive Assessment: Date of Thrive Assessment Date Thrive assessed 05/06/23 06/18/23 11:26 Const General: cooperative and no acute distress Resp Effort & Inspection: normal respiratory effort Auscultation: clear to auscultation bilaterally Percussion: percussion normal Cardio Jugular venous distension: no JVD Rate: regular rate Rhythm: regular rhythm Extrem Other: left calf swollen and tender Assessment and Plan Assessment & Plan (1) Edema leg: Code(s): R60.0 - Localized edema Plan: stat us Orders: Orders US venous duplex LE LT Today R60.0 - Localized edema Medications: New cyclobenzaprine 10 mg PO TID PRN 30 tabs 2RF muscle spasm Coding Level of Care Code Est Pt Level 3 (43131) Diagnoses Edema leg R60.0
[2023-06-18 11:25] VITALS: BP 138/76; PULSE 80; O2SAT 95; BMI 33.9
== END 2023-06-18 11:44 | disposition home or self-care (01) ==
PROVIDERS: PCP Internal Medicine; Visit Provider Internal Medicine
DX: R60.0 Localized edema (principal)
CPT/HCPCS: 99213

== ENCOUNTER 2023-06-18 12:05 | Outpatient (REF) | payer OTHER, SELFPAY ==
--- NOTE | ~2023-06-18 | US_ITS ---
EXAMINATION: US VENOUS ULTRASOUND WITH DOPPLER LOWER EXTREMITY, LEFT CLINICAL INFORMATION: Leg pain and edema COMPARISON: None available. TECHNIQUE: Ultrasound of the deep veins is performed from the hip to the calf with compression sonography and color and pulse Doppler assessment. Spectral analysis with color-flow imaging is performed. FINDINGS: There is normal venous compression and respiratory variation and augmented flow. The visualized common femoral vein, superficial femoral vein, profunda femoral vein, popliteal vein, and the trifurcation region shows no evidence of deep venous thrombosis. There is no significant popliteal fossa cyst. US/US venous duplex LE LT IMPRESSION: No DVT demonstrated in the left lower extremity.
== END 2023-06-18 12:06 | disposition home or self-care (01) ==
LOC: HO.US 12:05
PROVIDERS: PCP Internal Medicine; Visit Provider Internal Medicine
DX: R60.0 Localized edema (principal)
CPT/HCPCS: 93971

== ENCOUNTER 2023-07-08 15:39 | Outpatient (AMB) | payer OTHER, SELFPAY ==
--- NOTE | 2023-07-08 15:49 | A.OFFVIS_ITS ---
Intake Intake Visit Reasons: 1Y PVR/PSA(set)(Erectile Dys, Nocturia) Intake Note: Patient is Present for Follow Up Urology Medication: Tamsulosin, Sildenafil Antibiotic Allergies: Cipro Blood Thinners: Aspirin [facility]acy: [facility] PVR: 0ml Allergies ciprofloxacin [From Cipro] Allergy (Mild, Verified 06/18/23 11:25) SWELLING, anaphylaxis Medication List - Last Reconciled 07/08/23 by Chris Le MD aspirin (Adult Low Dose Aspirin) 81 mg PO DAILY atorvastatin 80 mg PO DAILY cyclobenzaprine 10 mg PO TID PRN fluticasone propionate 220 mcg/actuation (Flovent HFA) 1 puff inhalation BID fluticasone propionate 50 mcg/actuation 1 spray intranasal DAILY hydrochlorothiazide 25 mg PO QAM lisinopril 40 mg PO DAILY metoprolol succinate ER 25 mg PO DAILY omeprazole 20 mg PO DAILY sildenafil 100 mg PO DAILY PRN 30 days tamsulosin 0.4 mg PO BEDTIME 90 days tiotropium bromide 1 cap PO DAILY 90 days HPI HPI Comments History of Present Illness Details Donnell BALTAZAR is a very pleasant male. He is a patient of Dr Coley. He is seen the following urologic conditions. - lower urinary tract symptoms - erectile dysfunction Continued good emptying on Flomax Uses every other day Does have sildenafil for erections - may use up to 200 cc Lower Urinary Tract Symptoms: Current visit is for further evaluation of, lower urinary tract symptoms, predominate obstructive symptoms - flomax is still working for him Current treatment includes medication, tamsulosin Prostate Symptom Score 3/19 , Moderate (9-19), Bother 2. Symptoms include / , weak stream, intermittency, nocturia (>2), and are improving 07/24 and are improving. PSA 07/24 0.9, 05/25 0.7, 08/27 0.7 Prostate volume 50+gm. Testing at next visit will include bladder scan Treatment plan - review in 12 month [facility] Medical History Basal cell carcinoma of skin Barretts esophagus Anemia Hiatal hernia GERD (gastroesophageal reflux disease) BPH (benign prostatic hyperplasia) COPD (chronic obstructive pulmonary disease) Sinus infection Hematoma of right lower leg Fall Eczema Weak urinary stream Nocturia Stenosis of left anterior descending (LAD) artery Atherosclerotic cardiovascular disease Chest discomfort Other and unspecified hyperlipidemia Hypertension URI (upper respiratory infection) Surgical History H/O shoulder surgery S/P LASIK surgery of both eyes History of colonoscopy Family History Mother Hypertension Diabetes Father Hypertension CAD (coronary artery disease) Brother No problems noted. Brother No problems noted. Brother No problems noted. Brother No problems noted. Sister No problems noted. Sister No problems noted. Sister No problems noted. Sister No problems noted. Son No problems noted. Son No problems noted. Daughter No problems noted. Social History Housing: House Alcohol intake: current Alcohol intake frequency: 0-2 drinks per day Patient Tobacco Use Status: Former Tobacco user Tobacco use type: Cigarette e-Cigarette/Vaping Use: Never Used Second Hand Smoke Exposure: No service: No Current occupational status: employed Cognitive needs: No Hearing needs: Yes (hearing aide) Vision needs: Yes (glasses) Review of Systems Const Denies chills and Denies fever(s) Card Reports no additional complaints and Denies syncope Resp Denies cough GI Denies abdominal pain and Denies heartburn Reports as per HPI and Denies change in libido Neuro Denies syncope Psych Denies change in libido Endo Denies change in libido Physical Exam Const General: cooperative, healthy appearing, comfortable and no acute distress Orientation/consciousness: patient oriented x3 HEENT Face and sinus: Yes normal facial exam Mouth: moist mucous membranes Neck Neck: Yes normal visual inspection, Yes full ROM and Yes trachea midline Chest Chest palpation & inspection: normal inspection of the chest Resp Effort & Inspection: normal respiratory effort, able to speak in complete sentences and no respiratory distress GI Inspection: Yes normal to inspection Back/Spine/Pelvis Cervical Spine: normal cervical lordosis Thoracic/Lumbar Spine: thoracic and lumbar spine normal to inspection Skin General skin exam: no rashes or lesions noted Neuro General: patient oriented x3, gait normal, tone normal and moves all extremities Extrem General: Yes normal to inspection and Yes capillary refill normal Office Procedures Post Void Residual Post Residual Void Post Void Residual (PVR): 0 [id number]-[id number] Void Residual by ultrasound Results AMB Urinalysis, Automated UA Leukoctes 0 Kezia/uL Last Edit by Irasema Wen, A on 07/08/23 15:55 UA Nitrite Negative Last Edit by Irasema Wen, RMA on 07/08/23 15:55 UA Urobilinogen 0.2 mg/dL Last Edit by Irasema Wen, RMA on 07/08/23 15:5 5 UA Protein 0 mg/dL Last Edit by Irasema Wen, RMA on 07/08/23 15:55 UA pH 6.0 Last Edit by Irasema Wen, RMA on 07/08/23 15:55 UA Blood 0 León/uL Last Edit by Irasema Wen, RMA on 07/08/23 15:55 UA Specific Hubertus 1.020 Last Edit by Irasema Wen, RMA on 07/08/23 15: 55 UA Ketone Negative Last Edit by Irasema Wen, RMA on 07/08/23 15:55 UA Bilirubin 0 mg/dL Last Edit by Irasema Wen, RMA on 07/08/23 15:55 UA Glucose 0 mg/dL Last Edit by Irasema Wen, A on 07/08/23 15:55 Results Reviewed Results Reviewed: Laboratory Last Values Urine pH (Auto) 6.0 07/08/23 15:55 Specific Hubertus (Auto) 1.020 07/08/23 15:55 Urine Protein (Auto) 0 mg/dL 07/08/23 15:55 Glucose (UA)(Auto) 0 mg/dL 07/08/23 15:55 Urine Ketones (Auto) Negative 07/08/23 15:55 Urine Blood (Auto) 0 León/uL 07/08/23 15:55 Urine Nitrite (Auto) Negative 07/08/23 15:55 Urine Bilirubin (Auto) 0 mg/dL 07/08/23 15:55 Urine Urobilinogen (Auto) 0.2 mg/dL 07/08/23 15:55 Leukocyte Esterase (Auto) 0 Kezia/uL 07/08/23 15:55 Assessment & Plan Assessment & Plan (1) Bladder outlet obstruction: Code(s): N32.0 - Bladder-neck obstruction (2) Erectile dysfunction due to arterial insufficiency: Code(s): N52.01 - Erectile dysfunction due to arterial insufficiency Plan Twelve month follow-up Orders: Orders AMB Post Void Residual by ultrasound Today N32.0 - Bladder-neck obstruction AMB Urinalysis Automated Today N32.0 - Bladder-neck obstruction, Z13.9 - Encounter for screening, unspecified Medications: Changed From sildenafil administer 60 minutes before intended activity 100 mg PO DAILY PRN 30 tabs 1RF sexual activity 30 days N52.9 - Male erectile dysfunction, unspecified To sildenafil administer 60 minutes before intended activity - may use up to 2 tablets per occasion 100 mg PO DAILY PRN 30 tabs 1RF sexual activity 30 days N52.9 - Male erectile dysfunction, unspecified Refilled tamsulosin 0.4 mg PO BEDTIME 90 caps 1RF 90 days N32.0 - Bladder-neck obstruction Patient Instructions: Imaging studies, laboratory and physical exam results were discussed and reviewed in detail. No major barriers to patient understanding were identified. An opportunity to ask questions regarding the treatment plan was provided. All questions were answered. The patient expressed understanding and agreement with the above treatment plan. The patient is aware they should contact our office by phone for worsening of their current condition or the appearance of new urologic symptoms. Compliance is encouraged with any medications and followup testing that is ordered. It is a privilege to participate in the urologic care of your patient. If you have any questions or concerns regarding treatment for the above conditions, or other urologic issues, please do not hesitate to contact me. The office telep lidia contact is [phone]. This note is constructed using voice recognition software. While every effort has been made to ensure accuracy clinical pharmacy manager errors may have been included. Yours sincerely, Dr Chris Le MD, [facility] - Urology Providers of Expert, Compassionate Care for the Genitourinary System Coding Level of Care Code Est Pt Level 4 (82246) Diagnoses Bladder outlet obstruction N32.0 Erectile dysfunction due to arterial insufficiency N52.01 CPT Codes Post Residual Void - PVR CPT Code: 46385-Hkmw Void Residual by ultrasound ([id number])
== END 2023-07-08 16:04 | disposition home or self-care (01) ==
PROVIDERS: PCP Internal Medicine; Visit Provider Urology
DX: N32.0 Bladder-neck obstruction (principal); N52.01 Erectile dysfunction due to arterial insufficiency; Z13.9 Encounter for screening, unspecified
CPT/HCPCS: 99213

== ENCOUNTER → 2023-07-08 15:39 | Outpatient (BNVA) | payer OTHER, SELFPAY | PROVIDERS: Visit Provider Urology | DX: N32.0 Bladder-neck obstruction (principal); N52.01 Erectile dysfunction due to arterial insufficiency | CPT/HCPCS: 51798; 81003; 99212 ==

== ENCOUNTER 2024-02-11 08:44 | Outpatient (AMB) | payer MEDICARE, SELFPAY ==
--- NOTE | 2024-02-11 08:45 | MHC.PC.OV ---
Vital Signs 02/11/24 08:46 Height 5 ft 6 in Weight 215 lb BMI 34.7 BP 136/70 Blood Pressure Location Lt brachial Position Sitting Pulse 70 Pulse Source Pulse Oximeter Pulse Oximetry (%) 99 Oxygen Delivery Method Room Air Intake Visit Reasons: Medication follow up Demolition Hammer Operator Required: No Access Director: Not Required per policy Accompanied by: Self / Same As Patient Allergies ciprofloxacin [From Cipro] Allergy (Mild, Verified 02/11/24 08:46) SWELLING, anaphylaxis Medication List - Last Reconciled 02/11/24 by Aren Vaughn MD aspirin (Adult Low Dose Aspirin) 81 mg PO DAILY atorvastatin 80 mg PO DAILY cyclobenzaprine 10 mg PO TID PRN fluticasone propionate 110 mcg/actuation 1 puff inhalation BID fluticasone propionate 50 mcg/actuation 1 spray intranasal DAILY fluticasone propionate 220 mcg/actuation (Flovent HFA) 1 puff inhalation BID hydrochlorothiazide 25 mg PO QAM ipratropium bromide 17 mcg/actuation 2 puffs inhalation Q8H lisinopril 40 mg PO DAILY metoprolol succinate ER 25 mg PO DAILY omeprazole 20 mg PO DAILY sildenafil 100 mg PO DAILY PRN 30 days tamsulosin 0.4 mg PO BEDTIME 90 days tiotropium bromide 1 cap PO DAILY 90 days tiotropium bromide 1.25 mcg/actuation (Spiriva Respimat) 2 puffs inhalation DAILY Tobacco use date assessed: 02/11/24 Fall risk assessment: No Falls in past year Last assessed Fall Risk: 02/11/24 Dental Screening Dental Screen Date: 02/11/24 Did you have a dental visit in the last 12 months?: Yes Did you have a dental problem in the last 6 months where you did not have access to dental care?: No Was dental information given to patient?: Patient has dentist HPI Medication follow up HPI Details HTN on Rx; compliant with regimen PFSH Medical History Basal cell carcinoma of skin Barretts esophagus Anemia Hiatal hernia GERD (gastroesophageal reflux disease) BPH (benign prostatic hyperplasia) COPD (chronic obstructive pulmonary disease) Sinus infection Hematoma of right lower leg Fall Eczema Weak urinary stream Nocturia Stenosis of left anterior descending (LAD) artery Atherosclerotic cardiovascular disease Chest discomfort Other and unspecified hyperlipidemia Hypertension URI (upper respiratory infection) Surgical History H/O shoulder surgery S/P LASIK surgery of both eyes History of colonoscopy Family History Mother Hypertension Diabetes Father Hypertension CAD (coronary artery disease) Brother No problems noted. Brother No problems noted. Brother No problems noted. Brother No problems noted. Sister No problems noted. Sister No problems noted. Sister No problems noted. Sister No problems noted. Son No problems noted. Son No problems noted. Daughter No problems noted. Social History Housing: House Alcohol intake: current Alcohol intake frequency: 0-2 drinks per day Patient Tobacco Use Status: Former Tobacco user Tobacco use type: Cigarette e-Cigarette/Vaping Use: Never Used Second Hand Smoke Exposure: No service: No Current occupational status: employed Cognitive needs: No Hearing needs: Yes (hearing aide) Vision needs: Yes (glasses) Questionnaire PHQ-9 Over the last 2 weeks, how often have you been bothered by any of the following problems? 1. Little interest or pleasure in doing things: not at all 2. Feeling down, depressed, or hopeless: not at all 3. Trouble falling or staying asleep, or sleeping too much: not at all 4. Feeling tired or having little energy: not at all 5. Poor appetite or overeating: not at all 6. Feeling bad about yourself - or that you are a failure or have let yourself or your family down: not at all 7. Trouble concentrating on things, such as reading the newspaper or watching television: not at all 8. Moving or speaking so slowly that other people could have noticed. Or the opposite - being so fidgety or restless that you have been moving around a lot more than usual: not at all 9. Thoughts that you would be better off or of hurting yourself in some way: not at all Total score: 0 Depression Screening Interpretation: Negative Depression Screening Done: Yes 16559 - PHQ-9 Billing: Yes Source: Developed by Drs. Myron Coleman, Izabella Brenner, Jeffry Martin and colleagues, with an educational violette from [employer]. Thrive Questionnaire Date Thrive assessed: 02/11/24 I am a: Patient What is your living situation today?: I have a steady place to live Within the past 12 months, did the food you bought not last and you didn't have the money to get more?: Never true Within the past 12 months, did you worry whether your food would run out before you got money to buy more?: Never true Do you have trouble paying for medicines?: No Do you have trouble getting transportation to medical appointments?: No Do you have trouble paying your heating and electricity bill?: No Do you have trouble taking care of your child, family member or friend?: No Are you currently unemployed and looking for a job?: No Are you interested in more education?: No Please select the resources that you would like help with: None THRIVE Score: 0 AUDIT C Alcohol Use Questionnaire (AUDIT-C) 1. How often do you have a drink containing alcohol?: 4 or more times a week 2. How many drinks containing alcohol do you have on a typical day when you are drinking?: 1 or 2 Total Score: 4 Score Reviewed/Action Taken: Yes DAV-7 AMB Questionnaire DAV-7 Date DAV - 7 assessed: 02/11/24 Feeling nervous, anxious, or on edge: 0 = Not at all Not being able to stop or control worryin = Not at all Worrying too much about different things: 0 = Not at all Trouble relaxin = Not at all Being so restless that it is hard to sit still: 0 = Not at all Becoming easily annoyed or irritable: 0 = Not at all Feeling afraid as if something awful might happen: 0 = Not at all Total DAV-7 score (0-4 normal; 5-9 mild; 10-14 moderate; 15-21 severe): 0 Source: Developed by Drs. Myron Coleman, Izabella Brenner, Jeffry Martin and colleagues, with an educational violette from [employer]. DAV-7 Assessment Billing DAV-7 Assessment Tool: DAV-7 Assessment 72681 Review of Systems Const Denies chills, Denies headache(s) and Denies weight loss ENT Denies headache(s) Card Denies chest pain, Denies syncope, Denies irregular heart rhythm and Denies dyspnea Resp Denies chest congestion, Denies cough and Denies dyspnea GI Denies abdominal pain, Denies change in stool character, Denies nausea and Denies vomiting Musc Denies deformity and Denies joint swelling Neuro Denies syncope and Denies headache(s) Physical exam (Primary Care) Vital Signs: Last Vital Signs Pulse 70 02/11/24 08:46 BP 136/70 02/11/24 08:46 Pulse Ox 99 02/11/24 08:46 Oxygen Delivery Method Room Air 02/11/24 08:46 BMI result Body Mass Index 34.7 Tobacco/Smoking Status: Tobacco use Status Tobacco use date assessed 02/11/24 02/11/24 08:47 Patient Tobacco Use Status Former Tobacco user 02/11/24 08:47 Tobacco use type Cigarette 02/11/24 08:47 e-Cigarette/Vaping Use Never Used 02/11/24 08:47 PHQ-9: PHQ-9 Score PHQ-9: Total score 0 02/11/24 08:47 Depression Screening Interpretation: Negative Thrive Assessment: Date of Thrive Assessment Date Thrive assessed 02/11/24 02/11/24 08:47 Const General: cooperative, comfortable, no acute distress and alert Neck Neck: Yes no lymphadenopathy Thyroid: Thyroid normal Resp Effort & Inspection: normal respiratory effort Auscultation: clear to auscultation bilaterally Percussion: percussion normal Cardio Jugular venous distension: no JVD Palpation: normal PMI Rate: regular rate Rhythm: regular rhythm Heart sounds: S1 normal heart sound present and S2 normal heart sound present GI Inspection: Yes normal to inspection Palpation (GI): No hepatosplenomegaly present Skin General skin exam: no rashes or lesions noted Extrem General: Yes no clubbing, cyanosis or edema Assessment and Plan Assessment & Plan (1) Hypertension: Code(s): I10 - Essential (primary) hypertension Plan: stable; same rx; do labs Orders: Orders Complete Blood Count Auto Diff Today Z13.0 - Encounter for screening for diseases of the blood and blood-forming organs and certain disorders involving the immune mechanism Prostate Specific Antigen Scr Today Z00.00 - Encounter for general adult medical examination without abnormal findings Lipid Panel Today Z13.220 - Encounter for screening for lipoid disorders Comprehensive Dulce. Panel Fast Today Z13.9 - Encounter for screening, unspecified Thyroid Stimulating Hormone Today Z13.29 - Encounter for screening for other suspected endocrine disorder Medications: New amoxicillin-pot clavulanate 500-125 mg (Augmentin) 1 tab PO BID 10 tabs 0RF tizanidine 4 mg PO ONCE PRN 90 tabs 3RF muscle spasticity Coding Level of Care Code Est Pt Level 3 (00571) Diagnoses Hypertension I10 Additional Codes DAV-7 Assessment Billing - DAV-7 Assessment Tool: DAV-7 Assessment 99161 ([id number])
[2024-02-11 08:46] VITALS: BP 136/70; PULSE 70; O2SAT 99; BMI 34.7
== END 2024-02-11 09:04 | disposition home or self-care (01) ==
PROVIDERS: PCP Internal Medicine; Visit Provider Internal Medicine
DX: I10 Essential (primary) hypertension (principal)
CPT/HCPCS: 99213

== ENCOUNTER 2024-02-11 09:14 | Outpatient (REF) | payer MEDICARE, SELFPAY ==
[2024-02-11 09:35] LABS: MANUAL DIFF FLAG NO
[2024-02-11 10:06] LABS: Basophils Absolute Auto 0.1 X10*3/uL (0.0-0.2); Basophils Percent Auto 1.2 % (0-2); Eosinophils Absolute Auto 0.5 X10*3/uL (0.0-0.4); Eosinophils Percent Auto 8.5 % (0-4); Hematocrit 38.7 % (42.0-52.0); Imm Gran Abs Auto 0.02 X10*3/uL (0.00-0.03); Imm Gran Pct Auto 0.4 % (0.0-0.4); Lymphocytes Absolute Auto 1.7 X10*3/uL (1.2-4.9); Lymphocytes Percent Auto 29.6 % (20-40); Mean Corpuscular HGB Conc 33.6 g/dl (31.0-36.0); Mean Corpuscular Volume 89.4 fL (80.0-98.0); Mean Platelet Volume 10.1 fL (9.4-12.4); Monocytes Absolute Auto 0.4 X10*3/uL (0.1-1.2); Monocytes Percent Auto 7.4 % (2-11); Neutrophils Percent Auto 52.9 % (45-73); Platelet Count 217 X10*3/uL (160-400); Red Blood Count 4.33 X10*6/uL (4.60-5.80); Red Cell Distribution Width 12.8 % (11.0-16.0); White Blood Count 5.7 X10*3/uL (4.8-10.8)
[2024-02-11 10:34] LABS: Alanine Aminotransferase 31 U/L (0-40); Alkaline Phosphatase 55 U/L (39-117); Anion Gap 13 (12-20); Aspartate Amino Transferase 19 U/L (5-37); Bilirubin Total 0.6 mg/dL (0.0-1.0); Blood Urea Nitrogen 20 mg/dL (9-16); Calcium 9.3 mg/dL (8.4-10.2); Carbon Dioxide 26 mmol/L (22-29); Chloride 105 mmol/L (96-108); Cholesterol 148 mg/dL (<200); Estimated Glomerular Filt Rate > 60; Glucose Fasting 103 mg/dL (60-99); HDL Cholesterol 56 mg/dL (>40); LDL Cholesterol Calculated 72 mg/dL (<100); Potassium 4.3 mmol/L (3.3-5.1); Sodium 140 mmol/L (135-145); Total Protein 6.7 g/dL (6.5-8.0); Triglycerides 102 mg/dL (<150)
[2024-02-11 10:56] LABS: Prostate Specific Antigen Scr 0.81 ng/mL (<0.05-4.0)
[2024-02-11 10:59] LABS: Thyroid Stimulating Hormone 0.98 uIU/mL (0.32-4.0)
== END 2024-02-11 09:15 | disposition home or self-care (01) ==
LOC: HO.LAB 09:14
PROVIDERS: PCP Internal Medicine; Visit Provider Internal Medicine
DX: Z00.00 Encounter for general adult medical examination without abnormal findings (principal); Z13.0 Encounter for screening for diseases of the blood and blood-forming organs and certain disorders involving the immune mechanism; Z13.220 Encounter for screening for lipoid disorders; Z13.29 Encounter for screening for other suspected endocrine disorder; Z12.5 Encounter for screening for malignant neoplasm of prostate; Z20.2 Contact with and (suspected) exposure to infections with a predominantly sexual mode of transmission
CPT/HCPCS: 36415; 80053; 80061; 84153; 84443; 85025

== ENCOUNTER 2024-04-17 09:03 | Outpatient (AMB) | payer MEDICARE, SELFPAY ==
--- NOTE | 2024-04-17 09:12 | AM.OFFWIN_ITS ---
Intake Vital Signs 04/17/24 09:13 Height 5 ft 6 in Weight 211 lb BMI 34.1 BP 140/86 H Blood Pressure Location Lt brachial Position Sitting Pulse 74 Pulse Source Pulse Oximeter Temp 98.6 F Temp Source Oral Pulse Oximetry (%) 94 Oxygen Delivery Method Room Air Intake Visit Reasons: EP SOB, nausea Intake Note: Pt is here today c/o SOB and nausea pt says due to taking lisinopril & HCTZ Patient Tobacco Use Status: Former Tobacco user Allergies ciprofloxacin [From Cipro] Allergy (Mild, Verified 02/11/24 08:46) SWELLING, anaphylaxis HPI EP SOB, nausea HPI Details As with complaints of shortness of breath and fatigue. Also nausea and some epigastric substernal discomfort. He says this has been on and off for the past week. No significant change with exertion or food. He notes that he has been told he had ?a small blockage in his heart for which he takes metoprolol. He also notes history of a touch of COPD He has wondering if the fatigue is due to his hydrochlorothiazide or lisinopril. Oxygen saturation is decreased. Denies significant cough. [facility], [facility] Medical History Basal cell carcinoma of skin Barretts esophagus Anemia Hiatal hernia GERD (gastroesophageal reflux disease) BPH (benign prostatic hyperplasia) COPD (chronic obstructive pulmonary disease) Sinus infection Hematoma of right lower leg Fall Eczema Weak urinary stream Nocturia Stenosis of left anterior descending (LAD) artery Atherosclerotic cardiovascular disease Chest discomfort Other and unspecified hyperlipidemia Hypertension URI (upper respiratory infection) Surgical History H/O shoulder surgery S/P LASIK surgery of both eyes History of colonoscopy Family History Mother Hypertension Diabetes Father Hypertension CAD (coronary artery disease) Brother No problems noted. Brother No problems noted. Brother No problems noted. Brother No problems noted. Sister No problems noted. Sister No problems noted. Sister No problems noted. Sister No problems noted. Son No problems noted. Son No problems noted. Daughter No problems noted. Social History Housing: House Alcohol intake: current Alcohol intake frequency: 0-2 drinks per day Patient Tobacco Use Status: Former Tobacco user Tobacco use type: Cigarette e-Cigarette/Vaping Use: Never Used Second Hand Smoke Exposure: No service: No Current occupational status: employed Cognitive needs: No Hearing needs: Yes (hearing aide) Vision needs: Yes (glasses) Review of Systems Const Denies chills, Reports fatigue, Denies fever(s), Denies headache(s) and Denies weakness ENT Denies dizziness and Denies headache(s) Card Details: Retrosternal discomfort Denies chest pain, Denies lightheadedness, Reports dyspnea and Denies other (Palpitations) Resp Denies cough, Reports dyspnea, Denies wheezing and Denies other ( shortness of breath) GI Reports belching and Reports constipation Musc Denies numbness and Denies tingling Neuro Denies dizziness, Denies headache(s), Denies numbness, Denies tingling, Denies paresthesias and Denies weakness Psych Denies anxiety and Denies depression Endo Reports fatigue Aller/Immun Denies wheezing Physical Exam Vital Signs: Last Vital Signs Temp 98.6 F 04/17/24 09:13 Pulse 74 04/17/24 09:13 BP 140/86 H 04/17/24 09:13 Pulse Ox 94 04/17/24 09:13 Oxygen Delivery Method Room Air 04/17/24 09:13 BMI result Body Mass Index 34.1 Assessment & Plan Assessment & Plan (1) Retrosternal discomfort: Code(s): R07.2 - Precordial pain Plan: EKG shows normal sinus rhythm, right bundle branch block, normal axis, no hypertrophy and no ST-T-wave changes. Also, not associated with exertion. Unlikely to be secondary to cardiac etiology. Patient notes significant reflux symptoms as well and takes omeprazole. Increase omeprazole (2) Shortness of breath: Code(s): R06.02 - Shortness of breath Plan: Likely COPD exacerbation though may also be secondary to GERD with microaspiration. Checking COVID/flu/RSV Gave patient DuoNeb and symptoms improved partially. (3) COPD exacerbation: Code(s): J44.1 - Chronic obstructive pulmonary disease with (acute) exacerbation Plan: Continue albuterol. Gave patient ipratropium inhaler as well and prednisone taper for exacerbation. Also, as above may have GERD microaspiration Increase omeprazole to 20 mg b.i.d. Plan Follow-up with PCP Orders: Orders SARS-CoV2/FLU/RSV Today R06.02 - Shortness of breath, Z20.822 - Contact with and (suspected) exposure to COVID-19 AMB Nebulizer Treatment Today R07.2 - Precordial pain Medications: New ipratropium-albuterol 0.5 mg-3 mg(2.5 mg base)/3 mL 3 mL inhalation ONCE 3 mL 0RF R07.2 - Precordial pain ipratropium bromide 17 mcg/actuation 1 puff inhalation QID 30 days 12.9 grams 0RF prednisone 4 tabs daily for 4 days, 3 tabs daily for 2 days, 2 tabs daily for 2 days, 1 tab daily for 2 days PO daily; 10 days 28 tabs 0RF Changed From omeprazole 20 mg PO DAILY To omeprazole 20 mg PO BID 30 days 60 caps 0RF Coding Level of Care Code Est Pt Level 3 (95428) Diagnoses Retrosternal discomfort R07.2 Shortness of breath R06.02 COPD exacerbation J44.1
[2024-04-17 09:13] VITALS: BP 140/86; PULSE 74; TEMP 37; O2SAT 94; BMI 34.1
== END 2024-04-17 12:05 | disposition home or self-care (01) ==
PROVIDERS: PCP Internal Medicine; Visit Provider Family Medicine
DX: R07.2 Precordial pain (principal); R06.02 Shortness of breath; J44.1 Chronic obstructive pulmonary disease with (acute) exacerbation
CPT/HCPCS: 94640; 99213; J7620

== ENCOUNTER 2024-04-17 10:23 | Outpatient (REF) | payer MEDICARE, SELFPAY ==
[2024-04-17 12:09] LABS: Influenza A PCR NEGATIVE (Negative); Influenza B PCR NEGATIVE (Negative); Resp Syncy Virus RNA Qual PCR NEGATIVE (Negative); SARS COV2 PCR INHOUSE NEGATIVE (Negative)
== END 2024-04-17 10:24 | disposition home or self-care (01) ==
LOC: HO.LAB 10:23
PROVIDERS: Visit Provider Family Medicine
DX: R06.02 Shortness of breath (principal); Z20.822 Contact with and (suspected) exposure to COVID-19
CPT/HCPCS: 0241U

== ENCOUNTER 2024-04-20 14:19 | Outpatient (AMB) | payer MEDICARE, SELFPAY ==
--- NOTE | 2024-04-20 14:23 | MHC.PC.OV ---
Vital Signs 04/20/24 14:27 Height 5 ft 6 in Weight 211 lb 4 oz BMI 34.1 BP 162/82 H Blood Pressure Location Lt brachial Position Sitting Pulse 92 Pulse Source Pulse Oximeter Pulse Oximetry (%) 96 Oxygen Delivery Method Room Air Intake Visit Reasons: follow up Milk Route Deliverer Required: No Accompanied by: Self / Same As Patient Allergies ciprofloxacin [From Cipro] Allergy (Mild, Verified 04/20/24 14:30) SWELLING, anaphylaxis Medication List - Last Reconciled 04/21/24 by Aren Vaughn MD albuterol sulfate 90 mcg/actuation (Ventolin HFA) 1 inh inhalation QID PRN aspirin (Adult Low Dose Aspirin) 81 mg PO DAILY atorvastatin 80 mg PO DAILY fluticasone propionate 50 mcg/actuation 1 spray intranasal DAILY hydrochlorothiazide 25 mg PO QAM ipratropium bromide 17 mcg/actuation 1 puff inhalation QID 30 days lisinopril 40 mg PO DAILY metoprolol succinate ER 25 mg PO DAILY omeprazole 20 mg PO BID 30 days prednisone 4 tabs daily for 4 days, 3 tabs daily for 2 days, 2 tabs daily for 2 days, 1 tab daily for 2 days PO daily; 10 days tamsulosin 0.4 mg PO BEDTIME 90 days Tobacco use date assessed: 02/11/24 Dental Screening Dental Screen Date: 02/11/24 HPI follow up HPI Details chronic constipation; for years [facility] Medical History Basal cell carcinoma of skin Barretts esophagus Anemia Hiatal hernia GERD (gastroesophageal reflux disease) BPH (benign prostatic hyperplasia) COPD (chronic obstructive pulmonary disease) Sinus infection Hematoma of right lower leg Fall Eczema Weak urinary stream Nocturia Stenosis of left anterior descending (LAD) artery Atherosclerotic cardiovascular disease Chest discomfort Other and unspecified hyperlipidemia Hypertension URI (upper respiratory infection) Surgical History H/O shoulder surgery S/P LASIK surgery of both eyes History of colonoscopy Family History Mother Hypertension Diabetes Father Hypertension CAD (coronary artery disease) Brother No problems noted. Brother No problems noted. Brother No problems noted. Brother No problems noted. Sister No problems noted. Sister No problems noted. Sister No problems noted. Sister No problems noted. Son No problems noted. Son No problems noted. Daughter No problems noted. Social History Housing: House Alcohol intake: current Alcohol intake frequency: 0-2 drinks per day Patient Tobacco Use Status: Former Tobacco user Tobacco use type: Cigarette e-Cigarette/Vaping Use: Never Used Second Hand Smoke Exposure: No service: No Current occupational status: employed Cognitive needs: No Hearing needs: Yes (hearing aide) Vision needs: Yes (glasses) Questionnaire Thrive Questionnaire Date Thrive assessed: 02/11/24 DAV-7 AMB Questionnaire DAV-7 Date DAV - 7 assessed: 02/11/24 Source: Developed by Drs. Myron Coleman, Izabella Brenner, Jeffry Martin and colleagues, with an educational violette from [employer]. Review of Systems Const Denies chills, Denies headache(s) and Denies weight loss ENT Denies headache(s) Card Denies chest pain, Denies syncope, Denies irregular heart rhythm and Denies dyspnea Resp Denies chest congestion, Denies cough and Denies dyspnea GI Denies abdominal pain, Denies change in stool character, Denies nausea and Denies vomiting Musc Denies deformity and Denies joint swelling Neuro Denies syncope and Denies headache(s) Physical exam (Primary Care) Vital Signs: Last Vital Signs Pulse 92 04/20/24 14:27 BP 162/82 H 04/20/24 14:27 Pulse Ox 96 04/20/24 14:27 Oxygen Delivery Method Room Air 04/20/24 14:27 BMI result Body Mass Index 34.1 Tobacco/Smoking Status: Tobacco use Status Tobacco use date assessed 02/11/24 04/20/24 14:23 Patient Tobacco Use Status Former Tobacco user 04/20/24 14:23 Tobacco use type Cigarette 04/20/24 14:23 e-Cigarette/Vaping Use Never Used 04/20/24 14:23 Thrive Assessment: Date of Thrive Assessment Date Thrive assessed 02/11/24 04/20/24 14:23 Const General: cooperative, comfortable, no acute distress and alert Neck Neck: Yes no lymphadenopathy Thyroid: Thyroid normal Resp Effort & Inspection: normal respiratory effort Auscultation: clear to auscultation bilaterally Percussion: percussion normal Cardio Jugular venous distension: no JVD Palpation: normal PMI Rate: regular rate Rhythm: regular rhythm Heart sounds: S1 normal heart sound present and S2 normal heart sound present GI Inspection: Yes normal to inspection Palpation (GI): No hepatosplenomegaly present Skin General skin exam: no rashes or lesions noted Extrem General: Yes no clubbing, cyanosis or edema Assessment and Plan Assessment & Plan (1) Constipation: Code(s): K59.00 - Constipation, unspecified Plan: fluids, miralax, fiber Coding Level of Care Code Est Pt Level 3 (16100) Diagnoses Constipation K59.00
[2024-04-20 14:27] VITALS: BP 162/82; PULSE 92; O2SAT 96; BMI 34.1
== END 2024-04-20 14:41 | disposition home or self-care (01) ==
PROVIDERS: PCP Internal Medicine; Visit Provider Internal Medicine
DX: K59.00 Constipation, unspecified (principal)
CPT/HCPCS: 99213

== ENCOUNTER 2024-05-03 12:46 | Outpatient (REF) | payer MEDICARE, SELFPAY ==
[2024-05-03 12:55] VITALS: BMI 32.9
[2024-05-03 12:56] VITALS: BP 177/92; PULSE 50; RESP 18; TEMP 36.1; O2SAT 95
== END 2024-05-03 12:47 | disposition home or self-care (01) ==
LOC: HO.MS 12:46
PROVIDERS: Visit Provider Ophthalmology
PROC: (CPT 67914; principal; 2024-05-03 16:10)
DX: H02.135 Senile ectropion of left lower eyelid (principal)
CPT/HCPCS: 67914

== ENCOUNTER 2024-05-11 05:53 | Outpatient (REF) | payer MEDICARE, SELFPAY ==
[2024-05-11 07:50] LABS: Cholesterol 241 mg/dL (<200); HDL Cholesterol 49 mg/dL (>40); LDL Cholesterol Calculated 137 mg/dL (<100); Triglycerides 278 mg/dL (<150)
== END 2024-05-11 05:54 | disposition home or self-care (01) ==
LOC: HO.LAB 05:53
PROVIDERS: PCP Internal Medicine; Visit Provider Internal Medicine
DX: Z13.220 Encounter for screening for lipoid disorders (principal)
CPT/HCPCS: 36415; 80061

== ENCOUNTER 2024-05-13 14:29 | Outpatient (AMB) | payer MEDICARE, SELFPAY ==
--- NOTE | 2024-05-13 14:40 | MHC.PC.OV ---
Vital Signs 05/13/24 14:41 Height 5 ft 7 in Weight 214 lb BMI 33.5 BP 160/106 H Blood Pressure Location Lt brachial Position Sitting Pulse 61 Pulse Source Pulse Oximeter Pulse Oximetry (%) 98 Oxygen Delivery Method Room Air Intake Visit Reasons: 3mth f/u Intake Note: Patient here for a 3 month follow up Statistical Typist Required: No Accompanied by: Self / Same As Patient Allergies ciprofloxacin [From Cipro] Allergy (Mild, Verified 05/13/24 14:42) SWELLING, anaphylaxis Medication List - Last Reconciled 05/14/24 by Aren Vaughn MD albuterol sulfate 90 mcg/actuation (Ventolin HFA) 1 inh inhalation QID PRN aspirin (Adult Low Dose Aspirin) 81 mg PO DAILY atorvastatin 80 mg PO DAILY fluticasone propionate 50 mcg/actuation 1 spray intranasal DAILY hydrochlorothiazide 25 mg PO QAM ipratropium bromide 17 mcg/actuation 1 puff inhalation QID 30 days lisinopril 40 mg PO DAILY metoprolol succinate ER 25 mg PO DAILY omeprazole 20 mg PO BID 30 days simvastatin 20 mg PO BEDTIME tamsulosin 0.4 mg PO BEDTIME 90 days Tobacco use date assessed: 02/11/24 Dental Screening Dental Screen Date: 02/11/24 HPI 3mth f/u HPI Details hyperlipidemia; stopped rx and feels better; chol has increased and need new rx PFSH Medical History Basal cell carcinoma of skin Barretts esophagus Anemia Hiatal hernia GERD (gastroesophageal reflux disease) BPH (benign prostatic hyperplasia) COPD (chronic obstructive pulmonary disease) Sinus infection Hematoma of right lower leg Fall Eczema Weak urinary stream Nocturia Stenosis of left anterior descending (LAD) artery Atherosclerotic cardiovascular disease Chest discomfort Other and unspecified hyperlipidemia Hypertension URI (upper respiratory infection) Surgical History H/O shoulder surgery S/P LASIK surgery of both eyes History of colonoscopy Family History Mother Hypertension Diabetes Father Hypertension CAD (coronary artery disease) Brother No problems noted. Brother No problems noted. Brother No problems noted. Brother No problems noted. Sister No problems noted. Sister No problems noted. Sister No problems noted. Sister No problems noted. Son No problems noted. Son No problems noted. Daughter No problems noted. Social History Housing: House Alcohol intake: current Alcohol intake frequency: 0-2 drinks per day Patient Tobacco Use Status: Former Tobacco user Tobacco use type: Cigarette e-Cigarette/Vaping Use: Never Used Second Hand Smoke Exposure: No service: No Current occupational status: employed Cognitive needs: No Hearing needs: Yes (hearing aide) Vision needs: Yes (glasses) Questionnaire Thrive Questionnaire Date Thrive assessed: 02/11/24 DAV-7 AMB Questionnaire DAV-7 Date DAV - 7 assessed: 02/11/24 Source: Developed by Drs. Myron Coleman, Izabella Brenner, Jeffry Martin and colleagues, with an educational violette from [employer]. Review of Systems Const Denies chills, Denies headache(s) and Denies weight loss ENT Denies headache(s) Card Denies chest pain, Denies syncope, Denies irregular heart rhythm and Denies dyspnea Resp Denies chest congestion, Denies cough and Denies dyspnea GI Denies abdominal pain, Denies change in stool character, Denies nausea and Denies vomiting Musc Denies deformity and Denies joint swelling Neuro Denies syncope and Denies headache(s) Physical exam (Primary Care) Vital Signs: Last Vital Signs Pulse 61 05/13/24 14:41 BP 160/106 H 05/13/24 14:41 Pulse Ox 98 05/13/24 14:41 Oxygen Delivery Method Room Air 05/13/24 14:41 BMI result Body Mass Index 33.5 Tobacco/Smoking Status: Tobacco use Status Tobacco use date assessed 02/11/24 05/13/24 14:44 Patient Tobacco Use Status Former Tobacco user 05/13/24 14:44 Tobacco use type Cigarette 05/13/24 14:44 e-Cigarette/Vaping Use Never Used 05/13/24 14:44 Thrive Assessment: Date of Thrive Assessment Date Thrive assessed 02/11/24 05/13/24 14:44 Const General: cooperative, comfortable, no acute distress and alert Neck Neck: Yes no lymphadenopathy Thyroid: Thyroid normal Resp Effort & Inspection: normal respiratory effort Auscultation: clear to auscultation bilaterally Percussion: percussion normal Cardio Jugular venous distension: no JVD Palpation: normal PMI Rate: regular rate Rhythm: regular rhythm Heart sounds: S1 normal heart sound present and S2 normal heart sound present GI Inspection: Yes normal to inspection Palpation (GI): No hepatosplenomegaly present Skin General skin exam: no rashes or lesions noted Extrem General: Yes no clubbing, cyanosis or edema Assessment and Plan Assessment & Plan (1) Hyperlipidemia: Code(s): E78.5 - Hyperlipidemia, unspecified Plan: will start new rx Orders: Orders Lipid Panel 05/13/24 Z13.220 - Encounter for screening for lipoid disorders Medications: New simvastatin 20 mg PO BEDTIME 30 tabs 3RF Coding Level of Care Code Est Pt Level 3 (19968) Diagnoses Hyperlipidemia E78.5
[2024-05-13 14:41] VITALS: BP 160/106; PULSE 61; O2SAT 98; BMI 33.5
== END 2024-05-13 14:59 | disposition home or self-care (01) ==
PROVIDERS: PCP Internal Medicine; Visit Provider Internal Medicine
DX: E78.5 Hyperlipidemia, unspecified (principal)
CPT/HCPCS: 99213

== ENCOUNTER 2024-06-29 06:02 | Outpatient (REF) | payer MEDICARE, SELFPAY ==
[2024-06-29 07:50] LABS: Cholesterol 185 mg/dL (<200); HDL Cholesterol 57 mg/dL (>40); LDL Cholesterol Calculated 77 mg/dL (<100); Triglycerides 259 mg/dL (<150)
== END 2024-06-29 06:03 | disposition home or self-care (01) ==
LOC: HO.LAB 06:02
PROVIDERS: PCP Internal Medicine; Visit Provider Internal Medicine
DX: Z13.220 Encounter for screening for lipoid disorders (principal)
CPT/HCPCS: 36415; 80061

== ENCOUNTER 2024-07-02 14:28 | Outpatient (AMB) | payer MEDICARE, SELFPAY ==
[2024-07-02 14:29] VITALS: BP 160/84; PULSE 75; O2SAT 95; BMI 33.5
--- NOTE | 2024-07-02 14:29 | MHC.PC.OV ---
Vital Signs 07/02/24 14:29 Height 5 ft 7 in Weight 214 lb BMI 33.5 BP 160/84 H Blood Pressure Location Lt brachial Position Sitting Pulse 75 Pulse Source Pulse Oximeter Pulse Oximetry (%) 95 Oxygen Delivery Method Room Air Intake Visit Reasons: 3 Month F/U Gyroscope Technician Required: No Accompanied by: Self / Same As Patient Allergies ciprofloxacin [From Cipro] Allergy (Mild, Verified 07/02/24 14:30) SWELLING, anaphylaxis Medication List - Last Reconciled 07/02/24 by Aren Vaughn MD albuterol sulfate 90 mcg/actuation (Ventolin HFA) 1 inh inhalation QID PRN aspirin (Adult Low Dose Aspirin) 81 mg PO DAILY atorvastatin 80 mg PO DAILY fluticasone propionate 50 mcg/actuation 1 spray intranasal DAILY hydrochlorothiazide 25 mg PO QAM ipratropium bromide 17 mcg/actuation 1 puff inhalation QID 30 days lisinopril 40 mg PO DAILY metoprolol succinate ER 25 mg PO DAILY omeprazole 20 mg PO BID 30 days simvastatin 20 mg PO BEDTIME tamsulosin 0.4 mg PO BEDTIME 90 days Tobacco use date assessed: 02/11/24 Fall risk assessment: No Falls in past year Last assessed Fall Risk: 07/02/24 Dental Screening Dental Screen Date: 02/11/24 HPI 3 Month F/U HPI Details hyperlipidemia on rx; doing well on rx and labs have improved PFSH Medical History Basal cell carcinoma of skin Barretts esophagus Anemia Hiatal hernia GERD (gastroesophageal reflux disease) BPH (benign prostatic hyperplasia) COPD (chronic obstructive pulmonary disease) Sinus infection Hematoma of right lower leg Fall Eczema Weak urinary stream Nocturia Stenosis of left anterior descending (LAD) artery Atherosclerotic cardiovascular disease Chest discomfort Other and unspecified hyperlipidemia Hypertension URI (upper respiratory infection) Surgical History H/O shoulder surgery S/P LASIK surgery of both eyes History of colonoscopy Family History Mother Hypertension Diabetes Father Hypertension CAD (coronary artery disease) Brother No problems noted. Brother No problems noted. Brother No problems noted. Brother No problems noted. Sister No problems noted. Sister No problems noted. Sister No problems noted. Sister No problems noted. Son No problems noted. Son No problems noted. Daughter No problems noted. Social History Housing: House Alcohol intake: current Alcohol intake frequency: 0-2 drinks per day Patient Tobacco Use Status: Former Tobacco user Tobacco use type: Cigarette e-Cigarette/Vaping Use: Never Used Second Hand Smoke Exposure: No service: No Current occupational status: employed Cognitive needs: No Hearing needs: Yes (hearing aide) Vision needs: Yes (glasses) Questionnaire PHQ-9 Over the last 2 weeks, how often have you been bothered by any of the following problems? 1. Little interest or pleasure in doing things: not at all 2. Feeling down, depressed, or hopeless: not at all 3. Trouble falling or staying asleep, or sleeping too much: not at all 4. Feeling tired or having little energy: not at all 5. Poor appetite or overeating: not at all 6. Feeling bad about yourself - or that you are a failure or have let yourself or your family down: not at all 7. Trouble concentrating on things, such as reading the newspaper or watching television: not at all 8. Moving or speaking so slowly that other people could have noticed. Or the opposite - being so fidgety or restless that you have been moving around a lot more than usual: not at all 9. Thoughts that you would be better off or of hurting yourself in some way: not at all Total score: 0 Depression Screening Interpretation: Negative Depression Screening Done: Yes 26483 - PHQ-9 Billing: Yes Source: Developed by Drs. Myron Coleman, Izabella Brenner, Jeffry Martin and colleagues, with an educational violette from [employer]. Thrive Questionnaire Date Thrive assessed: 02/11/24 Are you currently unemployed and looking for a job?: No AUDIT C Alcohol Use Questionnaire (AUDIT-C) 1. How often do you have a drink containing alcohol?: 4 or more times a week 2. How many drinks containing alcohol do you have on a typical day when you are drinking?: 3 or 4 3. How often do you have six or more drinks on one occasion?: Monthly Total Score: 7 Score Reviewed/Action Taken: Yes DAV-7 AMB Questionnaire DAV-7 Date DAV - 7 assessed: 02/11/24 Source: Developed by Drs. Myron Coleman, Izabella Brenner, Jeffry Martin and colleagues, with an educational violette from [employer]. Review of Systems Const Denies chills, Denies headache(s) and Denies weight loss ENT Denies headache(s) Card Denies chest pain, Denies syncope, Denies irregular heart rhythm and Denies dyspnea Resp Denies chest congestion, Denies cough and Denies dyspnea GI Denies abdominal pain, Denies change in stool character, Denies nausea and Denies vomiting Musc Denies deformity and Denies joint swelling Neuro Denies syncope and Denies headache(s) Physical exam (Primary Care) Vital Signs: Last Vital Signs Pulse 75 07/02/24 14:29 BP 160/84 H 07/02/24 14:29 Pulse Ox 95 07/02/24 14:29 Oxygen Delivery Method Room Air 07/02/24 14:29 BMI result Body Mass Index 33.5 Tobacco/Smoking Status: Tobacco use Status Tobacco use date assessed 02/11/24 07/02/24 14:33 Patient Tobacco Use Status Former Tobacco user 07/02/24 14:33 Tobacco use type Cigarette 07/02/24 14:33 e-Cigarette/Vaping Use Never Used 07/02/24 14:33 PHQ-9: PHQ-9 Score PHQ-9: Total score 0 07/02/24 14:33 Depression Screening Interpretation: Negative Thrive Assessment: Date of Thrive Assessment Date Thrive assessed 02/11/24 07/02/24 14:33 Const General: cooperative, comfortable, no acute distress and alert Neck Neck: Yes no lymphadenopathy Thyroid: Thyroid normal Resp Effort & Inspection: normal respiratory effort Auscultation: clear to auscultation bilaterally Percussion: percussion normal Cardio Jugular venous distension: no JVD Palpation: normal PMI Rate: regular rate Rhythm: regular rhythm Heart sounds: S1 normal heart sound present and S2 normal heart sound present GI Inspection: Yes normal to inspection Palpation (GI): No hepatosplenomegaly present Skin General skin exam: no rashes or lesions noted Extrem General: Yes no clubbing, cyanosis or edema Assessment and Plan Assessment & Plan (1) Hyperlipidemia: Code(s): E78.5 - Hyperlipidemia, unspecified Plan: same rx; check 3 months Orders: Orders Lipid Panel Today Z13.220 - Encounter for screening for lipoid disorders Referrals Sleep Medicine Referral G47.33 - Obstructive sleep apnea (adult) (pediatric) Coding Level of Care Code Est Pt Level 3 (50026) Diagnoses Hyperlipidemia E78.5
== END 2024-07-02 14:42 | disposition home or self-care (01) ==
PROVIDERS: PCP Internal Medicine; Visit Provider Internal Medicine
DX: E78.5 Hyperlipidemia, unspecified (principal)

== ENCOUNTER → 2024-07-02 14:28 | Outpatient (BNVA) | payer MEDICARE, SELFPAY | PROVIDERS: PCP Internal Medicine; Visit Provider Internal Medicine | DX: E78.5 Hyperlipidemia, unspecified (principal) | CPT/HCPCS: 99212 ==

== ENCOUNTER 2024-07-07 15:53 | Outpatient (AMB) | payer MEDICARE, SELFPAY ==
--- NOTE | 2024-07-07 15:55 | A.OFFVIS_ITS ---
Intake Visit Reasons: 1Y Follow Up-PVR/PSA(set) Intake Note: Patient is Present for Follow Up on: PVR and lab results Urology Medication: Tamsulosin Antibiotic Allergies: Cipro Blood Thinners: Aspirin [facility]: [facility] PVR: 59ml's 911 Emergency Services Dispatcher Required: No Accompanied by: Self / Same As Patient Allergies ciprofloxacin [From Cipro] Allergy (Mild, Verified 07/07/24 15:56) SWELLING, anaphylaxis HPI Comments Details: Donnell BALTAZAR is a very pleasant male. He is a patient of Dr Coley. He is seen the following urologic conditions. - lower urinary tract symptoms - erectile dysfunction Continued good emptying on Flomax Uses every other day May slowly increase to every day Does have sildenafil for erections - may use up to 200mg Is effective Discussed low PSA. Does not need further PSA testing. Lower Urinary Tract Symptoms: Current visit is for further evaluation of, lower urinary tract symptoms, predominate obstructive symptoms - flomax is still working for him Current treatment includes medication, tamsulosin Prostate Symptom Score 3/19 , Moderate (9-19), Bother 2. Symptoms include 3/19 , weak stream, intermittency, nocturia (>2), and are improving 07/24 and are improving. PSA 07/24 0.9, 05/25 0.7, 08/27 0.7, 06/29 0.8 Prostate volume 50+gm. Testing at next visit will include bladder scan Treatment plan - review in 12 month [facility] Medical History Basal cell carcinoma of skin Barretts esophagus Anemia Hiatal hernia GERD (gastroesophageal reflux disease) BPH (benign prostatic hyperplasia) COPD (chronic obstructive pulmonary disease) Sinus infection Hematoma of right lower leg Fall Eczema Weak urinary stream Nocturia Stenosis of left anterior descending (LAD) artery Atherosclerotic cardiovascular disease Chest discomfort Other and unspecified hyperlipidemia Hypertension URI (upper respiratory infection) Surgical History H/O shoulder surgery S/P LASIK surgery of both eyes History of colonoscopy Family History Mother Hypertension Diabetes Father Hypertension CAD (coronary artery disease) Brother No problems noted. Brother No problems noted. Brother No problems noted. Brother No problems noted. Sister No problems noted. Sister No problems noted. Sister No problems noted. Sister No problems noted. Son No problems noted. Son No problems noted. Daughter No problems noted. Social History Housing: House Alcohol intake: current Alcohol intake frequency: 0-2 drinks per day Patient Tobacco Use Status: Former Tobacco user Tobacco use type: Cigarette e-Cigarette/Vaping Use: Never Used Second Hand Smoke Exposure: No service: No Current occupational status: employed Cognitive needs: No Hearing needs: Yes (hearing aide) Vision needs: Yes (glasses) Review of Systems Const Denies chills and Denies fever(s) Card Reports no additional complaints and Denies syncope Resp Denies cough GI Denies abdominal pain and Denies heartburn Reports as per HPI and Denies change in libido Neuro Denies syncope Psych Denies change in libido Endo Denies change in libido Physical Exam Const General: cooperative, healthy appearing, comfortable and no acute distress Orientation/consciousness: patient oriented x3 HEENT Face and sinus: Yes normal facial exam Mouth: moist mucous membranes Neck Neck: Yes normal visual inspection, Yes full ROM and Yes trachea midline Chest Chest palpation & inspection: normal inspection of the chest Resp Effort & Inspection: normal respiratory effort, able to speak in complete sentences and no respiratory distress GI Inspection: Yes normal to inspection Back/Spine/Pelvis Cervical Spine: normal cervical lordosis Thoracic/Lumbar Spine: thoracic and lumbar spine normal to inspection Skin General skin exam: no rashes or lesions noted Neuro General: patient oriented x3, gait normal, tone normal and moves all extremities Extrem General: Yes normal to inspection and Yes capillary refill normal Office Procedures Post Void Residual Post Residual Void Post Void Residual (PVR): 59 [id number] Void Residual by ultrasound Results AMB Urinalysis, Automated UA Leukoctes 0 Kezia/uL Last Edit by Carito Stanley on 07/07/24 16:17 UA Nitrite Last Edit by Carito Stanley on 07/07/24 16:17 UA Urobilinogen 0.2 mg/dL Last Edit by Carito Stanley on 07/07/24 16:17 UA Protein 0 mg/dL Last Edit by Carito Stanley on 07/07/24 16:17 UA pH 6.0 Last Edit by Carito Stanley on 07/07/24 16:17 UA Blood 0 León/uL Last Edit by Carito Stanley on 07/07/24 16:17 UA Specific [place] 1.015 Last Edit by Carito Stanley on 07/07/24 16:17 UA Ketone Last Edit by Carito Stanley on 07/07/24 16:17 UA Bilirubin 0 mg/dL Last Edit by Carito Stanley on 07/07/24 16:17 UA Glucose 0 mg/dL Last Edit by Carito Satnley on 07/07/24 16:17 Assessment & Plan Assessment & Plan (1) Bladder outlet obstruction: Code(s): N32.0 - Bladder-neck obstruction Category: Medical (2) Erectile dysfunction due to arterial insufficiency: Code(s): N52.01 - Erectile dysfunction due to arterial insufficiency Category: Medical Plan 12 month follow-up PVR Orders: Orders AMB Post Void Residual by ultrasound Today N32.0 - Bladder-neck obstruction AMB Urinalysis Automated Today Z13.9 - Encounter for screening, unspecified Medications: New sildenafil - may use up to 2 tabs - administer 60 minutes before intended activity 100 mg PO ONCE 30 days PRN 30 tabs 1RF sexual activity N52.01 - Erectile dysfunction due to arterial insufficiency Patient Instructions: Imaging studies, laboratory and physical exam results were discussed and reviewed in detail. No major barriers to patient understanding were identified. An opportunity to ask questions regarding the treatment plan was provided. All questions were answered. The patient expressed understanding and agreement with the above treatment plan. The patient is aware they should contact our office by phone for worsening of their current condition or the appearance of new urologic symptoms. Compliance is encouraged with any medications and followup testing that is ordered. It is a privilege to participate in the urologic care of your patient. If you have any questions or concerns regarding treatment for the above conditions, or other urologic issues, please do not hesitate to contact me. The office telephone contact is [phone]. This note is constructed using voice recognition software. While every effort has been made to ensure accuracy financial center manager errors may have been included. Yours sincerely, Dr Chris Le MD, [facility] - Urology Providers of Expert, Compassionate Care for the Genitourinary System Coding Level of Care Code Est Pt Level 4 (26916) Diagnoses Bladder outlet obstruction N32.0 Erectile dysfunction due to arterial insufficiency N52.01 CPT Codes Post Residual Void - PVR CPT Code: 91497-Kvoj Void Residual by ultrasound ([id number])
== END 2024-07-07 16:18 | disposition home or self-care (01) ==
PROVIDERS: PCP Internal Medicine; Visit Provider Urology
DX: N32.0 Bladder-neck obstruction (principal); N52.01 Erectile dysfunction due to arterial insufficiency; Z13.9 Encounter for screening, unspecified
CPT/HCPCS: 99214

== ENCOUNTER → 2024-07-07 15:53 | Outpatient (BNVA) | payer MEDICARE, SELFPAY | PROVIDERS: PCP Internal Medicine; Visit Provider Urology | DX: N32.0 Bladder-neck obstruction (principal); N52.01 Erectile dysfunction due to arterial insufficiency | CPT/HCPCS: 51798; 81003; 99212 ==

== ENCOUNTER 2024-08-02 12:47 | Outpatient (AMB) | payer MEDICARE, SELFPAY ==
--- NOTE | 2024-08-02 14:38 | AM.OFFWIN_ITS ---
Intake Vital Signs 08/02/24 14:48 Height 5 ft 7 in Weight 219 lb BMI 34.3 BP 134/80 Blood Pressure Location Rt brachial Position Sitting Pulse 76 Pulse Source Pulse Oximeter Temp 98.1 F Temp Source Oral Pulse Oximetry (%) 97 Oxygen Delivery Method Room Air Intake Visit Reasons: EP-mucus, sore throat, headache [phone] Intake Note: Patient here for sore throat,headache and cough which has been present for about 2 weeks. Patient Tobacco Use Status: Former Tobacco user Allergies ciprofloxacin [From Cipro] Allergy (Mild, Verified 08/02/24 14:39) SWELLING, anaphylaxis Do you need a note to return to daycare/school/sports/work: No HPI EP-mucus, sore throat, headache [phone] HPI Details This note is constructed using voice recognition software. While every effort has been made to ensure accuracy, marketing and public relations manager errors may have been included. The patient is a 64 year old male who presents to the clinic today with cough, sore throat, sinus pressure for the past 2 weeks. He notes that he has been treating this [id number], and it was getting better, however got worse again. The pain is worse in the frontal region when he leans forward. He is getting up thick yellow secretions occasionally. He reports subjective fever, has not checked it. He denies shortness of breath. [facility] History Basal cell carcinoma of skin Barretts esophagus Anemia Hiatal hernia GERD (gastroesophageal reflux disease) BPH (benign prostatic hyperplasia) COPD (chronic obstructive pulmonary disease) Sinus infection Hematoma of right lower leg Fall Eczema Weak urinary stream Nocturia Stenosis of left anterior descending (LAD) artery Atherosclerotic cardiovascular disease Chest discomfort Other and unspecified hyperlipidemia Hypertension URI (upper respiratory infection) Surgical History H/O shoulder surgery S/P LASIK surgery of both eyes History of colonoscopy Family History Mother Hypertension Diabetes Father Hypertension CAD (coronary artery disease) Brother No problems noted. Brother No problems noted. Brother No problems noted. Brother No problems noted. Sister No problems noted. Sister No problems noted. Sister No problems noted. Sister No problems noted. Son No problems noted. Son No problems noted. Daughter No problems noted. Social History Housing: House Alcohol intake: current Alcohol intake frequency: 0-2 drinks per day Patient Tobacco Use Status: Former Tobacco user Tobacco use type: Cigarette e-Cigarette/Vaping Use: Never Used Second Hand Smoke Exposure: No service: No Current occupational status: employed Cognitive needs: No Hearing needs: Yes (hearing aide) Vision needs: Yes (glasses) Review of Systems Const All systems reviewed & are unremarkable except as noted in HPI and below Physical Exam Vital Signs: Last Vital Signs Temp 98.1 F 08/02/24 14:48 Pulse 76 08/02/24 14:48 BP 134/80 08/02/24 14:48 Pulse Ox 97 08/02/24 14:48 Oxygen Delivery Method Room Air 08/02/24 14:48 BMI result Body Mass Index 34.3 Const General: cooperative, healthy appearing, comfortable and no acute distress Orientation/consciousness: patient oriented x3 Limitations: no limitations HEENT Head: Yes normal to inspection Ears: hearing grossly normal bilaterally, external ears normal and TM's normal bilaterally General nose exam: Normal external nose present, Normal nares present, Abnormal mucous membranes and turbinates present erythematous and Nasal discharge present purulent Face and sinus: Yes normal facial exam and Yes sinus tenderness Mouth: Normal oral and palatal mucosa present and moist mucous membranes Throat: Yes posterior oropharynx normal, Yes tonsils normal and Yes uvula midline Eyes General: appearance normal, both eyes and all related structures Neck Neck: Yes normal visual inspection Resp Effort & Inspection: normal respiratory effort, able to speak in complete sentences, Actively coughing, no respiratory distress, not tachypneic, no tripod positioning and no use of accessory muscles Auscultation: clear to auscultation bilaterally Cardio Rate: regular rate Rhythm: regular rhythm Heart sounds: normal S1 and S2 Skin General skin exam: no rashes or lesions noted Neuro General: patient oriented x3 Extrem General: Yes normal to inspection and Yes no clubbing, cyanosis or edema Assessment & Plan Assessment & Plan (1) Sinusitis: Code(s): J32.9 - Chronic sinusitis, unspecified Qualifiers: Sinusitis location: frontal Chronicity: acute Recurrence: non- recurrent Qualified Code(s): J01.10 - Acute frontal sinusitis, unspecified Plan: Supportive measures encouraged and reviewed. Advised consideration of sinus rinse if needed. Antibiotic sent to requested pharmacy, advised patient to take antibiotics until completed and not to stop if feeling better, unless the patient has side effects. Advised patient to follow up with primary care provider with worsening or failure to resolve. Plan See above for full details and plan. Orders: Orders AMB Rapid Strep Screen Today Z13.9 - Encounter for screening, unspecified Medications: New amoxicillin-pot clavulanate 875-125 mg 1 tab PO BID 10 days 20 tabs 0RF Coding Level of Care Code Est Pt Level 3 (39776) Diagnoses Acute non-recurrent frontal sinusitis J01.10 Sinusitis location: frontal Chronicity: acute Recurrence: non-recurrent
[2024-08-02 14:48] VITALS: BP 134/80; PULSE 76; TEMP 36.7; O2SAT 97; BMI 34.3
== END 2024-08-02 15:27 | disposition home or self-care (01) ==
PROVIDERS: PCP Internal Medicine; Visit Provider Registered Nurse
DX: J01.10 Acute frontal sinusitis, unspecified (principal)

== ENCOUNTER 2024-08-02 12:47 | Outpatient (REF) | payer MEDICARE, SELFPAY ==
[2024-08-03 11:37] LABS: Influenza A PCR NEGATIVE (Negative); Influenza B PCR NEGATIVE (Negative); Resp Syncy Virus RNA Qual PCR NEGATIVE (Negative); SARS COV2 PCR INHOUSE NEGATIVE (Negative)
== END 2024-08-02 12:48 | disposition home or self-care (01) ==
LOC: HO.LAB 12:47
PROVIDERS: PCP Internal Medicine; Visit Provider Registered Nurse
DX: J01.10 Acute frontal sinusitis, unspecified (principal); R09.89 Other specified symptoms and signs involving the circulatory and respiratory systems
CPT/HCPCS: 0241U; 99212

== ENCOUNTER 2025-02-21 07:50 | Outpatient (AMB) | payer MEDICARE, SELFPAY ==
--- OUTSIDE RECORDS SUMMARY | 2025-02-21 07:52 | XMS_ITS | Data Portability ---
Author Organization [facility] Torres [facility], [facility] Address [address] [place] [address] Assessment No assessment recorded. Plan of Treatment Reminders Order Date Submit Date Provider Last Modified By Organization Details Last Modified Time Details Appointments None recorded. Lab rapid SARS CoV 2 Ag, QL IA, respiratory specimen 2022 023 [email or web address], [address] [place] [address], [phone], 3 16:53:56 rapid flu (A+B) 2022 023 [email or web address] [address], [address] [place] [address], [phone], 3 16:53:56 Referral None recorded. Procedures None recorded. Surgeries None recorded. Imaging None recorded. Medication Orders albuterol sulfate HFA 90 mcg/actuati on aerosol inhaler 2022 023 [facility], [address] [place], [address], 3 16:53:58 prednisone 20 mg tablet 2022 023 [facility], [address] [place], [address], 3 16:54:00 azithromyci n 250 mg tablet 2022 023 [facility], [address] [place], [address], 16:54:00 Sheeba Perlkassidy 100 mg capsule 2022 023 [facility], [address] [facility], [place], [address], 16:53:59 Patient TargetsNo targets recorded. Patient Instructions Encounter Date Encounter Id Patient Instructions Last Modified By Organization Details Last Modified Time 11/01/2022 [id number] cough: care instructions [email or web address] Not available 11/01/2022 16:53:57 Reason for Referral None Reported. Results Created Date Observation Date Name Description Value Unit Range Abnormal Flag Note LastModifiedBy Organization Detail LastModifiedTime 11/01/1911/01/2022 rapid SARS CoV 2 Ag, QL IA, respi rator y speci men Unknown Analyte Normal =Negat petty Not Available olga lidia [address], [phone], 11/01/2022 16:16:20 11/01/19 23 11/01/2022 rapid SARS CoV 2 Ag, QL IA, respi rator y speci men Unknown Analyte negati ve Not Available 2099olga lidia [address], [address], 11/01/2022 16:16:20 11/01/19 23 11/01/2022 rapid flu (A+B) Unknown Analyte Normal = Negati ve Not Available [address] [place] [address], [phone], 11/01/2022 16:16:32 11/01/19 23 11/01/2022 rapid flu (A+B) Unknown Analyte Normal = Negati ve Not Available [address] [place] [address], [phone], 11/01/2022 16:16:32 11/01/19 23 11/01/2022 rapid flu (A+B) Unknown Analyte negati ve Not Available [address] [address] [place], [address], 11/01/2022 16:16:32 11/01/19 23 11/01/2022 rapid flu (A+B) Unknown Analyte negati ve Not Available [facility] [address] [place], [address], 11/01/2022 16:16:32 Result Notes None recorded. Problems Name Problem SNOMED Code Status Onset Date Resolution Date Notes Provider Name and Address Organization Details Recorded Time Hypertensive disorder 32712511 Active 2022 Carmella Emmet null, PA - [facility] 3 16:14:49 Hyperlipidemia 59565029 Active 2022 Carmella Emmet null, PA - [facility] 3 16:15:05 Hernia of abdominal cavity 38474909 Active 2022 Carmella Denise null, PA - [facility] 3 16:15:22 Asthma 766869351 Active 2022 Carmella Emmet null, PA - [facility] 3 16:15:35 Problem Notes None recorded. Medical Equipment None Reported. Allergies Allergen ID Allergen Name Allergen Category Reaction Reaction Severity Criticality Documentation Date Start Date Code Code System Note Provider Name and Address Organization Details Recorded Time 758903 ciproflox acin medicatio n angioedem a Not available high 11/01/2022 2551 RxNorm Carmella Emmet null, PA - [facility] 3 16:12:29 Medications Name Sig Start Date Stop Date Status Note LastModified by Organization Details LastModified Time atorvastati n 80 mg tablet TAKE 1 TABLET BY MOUTH DAILY. active Not Available Not Available No t Available azithromyci n 250 mg tablet TAKE 2 TABLETS (500 MG) BY ORAL ROUTE ONCE DAILY FOR 1 DAY THEN 1 TABLET (250 MG) BY ORAL ROUTE ONCE DAILY FOR 4 DAYS 2022 active Not Available Not Available Not Avai lable prednisone 20 mg tablet 2 pills together daily x 5 d 2022 active Not Available Not Available Not Avai lable meloxicam 7.5 mg tablet TAKE 1 TABLET BY MOUTH DAILY NEEDED FOR PAIN 11/01 completed Not Available Not Available Not Available Tessalon Perles 100 mg capsule Take 1 capsule 3 times a day by oral route. 2022 active Not Available Not Available Not Avai lable tamsulosin 0.4 mg capsule TAKE ONE CAPSULE BY MOUTH AT BEDTIME active Not Available Not Available No t Available cephalexin 500 mg capsule TAKE ONE CAPSULE BY MOUTH THREE TIMES A DAY 11/01 completed Not Available Not Available Not Available hydrochloro thiazide 25 mg tablet TAKE ONE TABLET BY MOUTH EVERY MORNING active Not Available Not Available No t Available metoprolol succinate ER 25 mg tablet,exte nded release 24 hr TAKE 1 TABLET BY MOUTH DAILY. active Not Available Not Available No t Available albuterol sulfate HFA 90 mcg/actuati on aerosol inhaler 2 puffs q 4-6 h prn cough/whe ta 2022 active Not Available Not Available Not Avai lable lisinopril 40 mg tablet TAKE 1 TABLET BY MOUTH DAILY. MAKE APPOINTME NT FOR FURTHER REFILLS) active Not Available Not Available No t Available fluticasone propionate 50 mcg/actuati on nasal spray,suspe nsion USE 1 SPRAY INTRANASA LLY DAILY. active Not Available Not Available No t Available amoxicillin 875 mg-potassiu m clavulanate 125 mg tablet TAKE ONE TABLET BY MOUTH TWICE A DAY FOR 7 DAYS 11/01 completed Not Available Not Available Not Available cyclobenzap rine 5 mg tablet TAKE ONE TABLET BY MOUTH TWICE A DAY NEEDED FOR MUSCLE SPASM 11/01 completed Not Available Not Available Not Available Spiriva with HandiHaler 18 mcg and inhalation capsules INHALE ONE CAPSULE BY MOUTH EVERY DAY active Not Available Not Available No t Available Flovent HFA 220 mcg/actuati on aerosol inhaler INHALE ONE PUFF BY MOUTH TWICE A DAY active Not Available Not Available No t Available aspirin active Not Available Not Avail able Not Available omeprazole active Not Available Not Av ailable Not Available Vitamin D3 active Not Available Not Av ailable Not Available Aller-Ryan active Not Available Not Salma ilable Not Available Vitals Date Recorded Body height Body mass index (BMI) Body weight Oxygen saturation Oxygen saturation in Arterial blood by Pulse oximetry Heart rate Respiratory rate Body temperature Systolic blood pressure Diastolic blood pressure Provider Name and Address Organization Details Last Updated DateTime 3 167.64 cm 33.1 kg/m2 23309.4 4 g 97 % 97 % 56 /min 20 /min 98 [degF] 166 mm[Hg] 90 mm[Hg] Carmella Walker PA - [facility] 16:19:11 Social History Question Answer Notes LastModified by [employer] Details LastModified Time Tobacco Smoking Status Never Smoker Carmellasharee Walker null, PA - [facility] 11/01/2022 16:15:51 Have You Had Direct Contact, Or Contact During Intimacy, With Monkeypox Rash, Scabs, Or Body Fluids From A Person With Monkeypox? No Information not available 11/01/2022 Have You Recently Traveled Abroad? No Information not available 11/01/2022 Sex: Unknown Functional Status Question Answer Note LastModified by [employer] Details LastModified Time How many times per week do you consume alcohol? 1-2 times per week Information not available 11/01/2022 Do you use any illicit or recreational drugs? No Information not available 11/01/2022 Do you or have you ever used any other forms of tobacco or nicotine? No Information not available 11/01/2022 What is your level of alcohol consumption? Occasional Information not available 11/01/2022 Mental Status None recorded. Family History Relationship Description Onset Age of this Age Resolved Age Notes LastModified by Organization Details LastModified Time Father No current problems or disability Not available 11/01 16:15:37 Mother No current problems or disability Not available 11/01 16:15:37 Medical History No medical history recorded. Immunizations Vaccine Type Date Status Note Provider Nam e and Address Organization Details Recorded Time Influenza, split virus, quadrivalent, preservative 9 completed Carmella Emmet null, PA - [facility] 11/01/2022 16:12:18 Influenza, split virus, quadrivalent, preservative 8 completed Carmella Denise null, PA - [facility] 11/01/2022 16:12:18 Influenza, MDCK, quadrivalent, PF 1 completed Carmella Emmet null, PA - [facility] 11/01/2022 16:12:18 Influenza, MDCK, quadrivalent, PF 8 completed Carmella Denise null, PA - [facility] 11/01/2022 16:12:18 Influenza, MDCK, quadrivalent, PF 0 completed Carmella Emmet null, PA - [facility] 11/01/2022 16:12:18 Influenza, MDCK, quadrivalent, PF 2 completed Carmella Denise null, PA - [facility] 11/01/2022 16:12:18 Influenza, MDCK, quadrivalent, PF 7 completed Carmella Denise null, PA - [facility] 11/01/2022 16:12:18 zoster recombinant 1 completed Carmella Emmet null, PA - [facility] 11/01/2022 16:12:18 zoster recombinant 0 completed Carmella Emmet null, PA - [facility] 11/01/2022 16:12:18 COVID-19, mRNA, LNP-S, PF, 30 mcg/0.3 mL dose 2 completed Carmella Emmet null, PA - [facility] 11/01/2022 16:12:18 COVID-19, mRNA, LNP-S, PF, 30 mcg/0.3 mL dose 1 completed Carmella Denise null, PA - [facility] 11/01/2022 16:12:18 COVID-19, mRNA, LNP-S, PF, 30 mcg/0.3 mL dose 1 completed Carmella Denise null, PA - [facility] 11/01/2022 16:12:18 Pneumococcal conjugate PCV20, polysaccharide [id number] conjugate, adjuvant, PF 2 completed Carmella Denise null, PA - [facility] 11/01/2022 16:12:18 COVID-19, mRNA, LNP-S, bivalent, PF, 30 mcg/0.3 mL dose 2 completed Carmella Denise null, PA - [facility] 11/01/2022 16:12:18 pneumococcal polysaccharide PPV23 0 completed Carmella Emmet null, PA - [facility] 11/01/2022 16:12:18 Tdap 3 completed Carmella Denise null, PA - [facility] 11/01/2022 16:12:18 Tdap 9 completed Carmella Denise null, PA - [facility] 11/01/2022 16:12:18 Tdap 0 completed Carmella Denise null, PA - [facility] 11/01/2022 16:12:18 Influenza, high-dose, trivalent, PF 9 completed Carmella Denise null, PA - [facility] 11/01/2022 16:12:18 Influenza, split virus, trivalent, preservative 6 completed Carmella Emmet null, PA - [facility] 11/01/2022 16:12:18 Past Encounters Encounter ID Performer Location Encounter Start Date Encounter Closed Date Diagnosis/Indication Diagnosis SNOMED-CT Code Diagnosis ICD10 Code Diagnosis [place] [id number] [place] [address] [address] 11/01/2022 14:58:42 11/01/2022 17:00:28 Cough 32897603 R05.9 Given Hx and Sx will Rx Abx and albuterol Jean talley prn coughTrial of mucinex prn congestion Humidified airrest, fluidstyle nol/ibu prn Patient advised to follow up as needed for worsening symptoms or no improvemen t. Discussed concerning red flags with patient and reasons to follow up in the Emergency Department urgently. Health Concerns Section Related Observation LastModified by Organization Detai ls LastModified Time None Recorded Concern Status LastModified by Organization Details LastModified Time None Recorded Advance Directives Directive None Recorded Payers Insurance Date Sequence Insurance Name Policy Number Policy Broderick Covered Member ID Broderick Member ID Guarantor Name 11/01/2022 1 [facility] (O) [id number] Donnell Fenton [id number] Donnell Fenton Notes Date Note Type Note Provider Name and Address Organization Details Recorded Time 11/01/2022 text/html CoughReported bypatient.Notes:60 yo malec/o congestion, headache, cough since last Friday.Taking mucinex at home.Coughing up green/yellow phlegm.+ asthmanon smoker No feverNo chillsNo difficulty breathing or respiratory distressNo CPNo ear painNo sore throatNo Abdominal painNo nauseaNo vomitingNp diarrheaNo myalgiaNo fatigueNo rashNo HANo dizzinessNo recent travelNo known sick contacts Lavell Lynne, DO [address] [place], [address], PA - [facility] 11/01/2022 17:00:04
--- NOTE | 2025-02-21 07:54 | A.OFFVIS_ITS ---
VS Expanded 02/21/25 08:03 BP 161/81 H Blood Pressure Location Rt brachial Blood Pressure Position Sitting Pulse 78 Pulse Source Pulse Oximeter Temp 97.4 F Temperature Source Temporal Artery Scan Pulse Oximetry 95 Oxygen Delivery Method Room Air Height 5 ft 7 in Weight 217 lb 12.8 oz BMI 34.1 Body Fat % 29.8 Body Fat Mass 64.8 Fat Free Mass 152.8 Visceral Fat Rating 19.0 Body Water % 50.6 Body Water Mass 110.0 Muscle Mass/Score 145.2 Basal Metabolic Rate/Score 2,037 Intake Visit Reasons: OV DOCTOR OF PODIATRY SWL vs MWL BMI 34.3 Allergies ciprofloxacin [From Cipro] Allergy (Mild, Verified 02/21/25 14:15) SWELLING, anaphylaxis Medication List - Last Reconciled 02/21/25 by Júnior Montaño MD albuterol sulfate 90 mcg/actuation (Ventolin HFA) 1 inh inhalation QID PRN aspirin (Adult Low Dose Aspirin) 81 mg PO DAILY atorvastatin 40 mg PO ONCE fluticasone propionate 50 mcg/actuation 1 spray intranasal DAILY hydrochlorothiazide 25 mg PO QAM ipratropium bromide 17 mcg/actuation 1 puff inhalation QID 30 days lisinopril 40 mg PO DAILY metoprolol succinate ER 25 mg PO DAILY omeprazole 20 mg PO BID 30 days sildenafil 100 mg PO ONCE PRN 30 days simvastatin 20 mg PO BEDTIME tamsulosin 0.4 mg PO BEDTIME 90 days HPI Comments Details: Previous weight loss efforts: self diet and exercise Wakes up: 5.45am, Sleeps: 8-9pm Breakfast: Skips Lunch: 1pm (sandwich) Dinner: 5.30pm (meat, vegetables, starch) Snacks: 10am (1/2 sandwich), 7pm (food or chips) Exercise: has home treadmill and exercise Beverages: Coffee (3-4 cups/d with creamer), tea: 1/wk, soda: none, juice: 1- 2/wk (orange juice), ETOH: 5/wk (2-3 Vodka shots per day) [facility] Medical History (Updated 02/21/25 @ 14:13 by Júnior Montaño MD) BMI 35.0-35.9,adult Basal cell carcinoma of skin Barretts esophagus Anemia Hiatal hernia GERD (gastroesophageal reflux disease) BPH (benign prostatic hyperplasia) COPD (chronic obstructive pulmonary disease) Sinus infection Hematoma of right lower leg Fall Eczema Weak urinary stream Nocturia Stenosis of left anterior descending (LAD) artery Atherosclerotic cardiovascular disease Chest discomfort Other and unspecified hyperlipidemia Hypertension URI (upper respiratory infection) Surgical History H/O shoulder surgery S/P LASIK surgery of both eyes History of colonoscopy Family History Mother Hypertension Diabetes Father Hypertension CAD (coronary artery disease) Brother No problems noted. Brother No problems noted. Brother No problems noted. Brother No problems noted. Sister No problems noted. Sister No problems noted. Sister No problems noted. Sister No problems noted. Son No problems noted. Son No problems noted. Daughter No problems noted. Social History (Updated 02/21/25 @ 08:00 by Lorrie Sanchez CMA) Housing: House Alcohol intake: current Alcohol intake frequency: a few times a week Patient Tobacco Use Status: Former Tobacco user Tobacco use type: Cigarette e-Cigarette/Vaping Use: Never Used Second Hand Smoke Exposure: No service: No Current occupational status: employed Cognitive needs: No Hearing needs: Yes (hearing aide) Vision needs: Yes (glasses) Physical Exam Vital Signs: Last Vital Signs Temp 97.4 F 02/21/25 08:03 Pulse 78 02/21/25 08:03 BP 161/81 H 02/21/25 08:03 Pulse Ox 95 02/21/25 08:03 Oxygen Delivery Method Room Air 02/21/25 08:03 BMI result Body Mass Index 34.1 GI Inspection: Yes normal to inspection (very android body habitus) and Yes obesity Palpation (GI): Firmness to palpation present (GI) Extrem Right lower extremity: normal to inspection Left lower extremity: normal to inspection Assessment & Plan Assessment & Plan (1) Obesity (BMI 30.0-34.9): Code(s): E66.9 - Obesity, unspecified Category: Medical Plan: 1.? Plan for lap sleeve gastrectomy. If diaphragmatic or ventral hernias are present at time of surgery, these will be repaired laparoscopically as well. I emphasized the importance of close follow-up, adherence to instructions and good communication. The surgery does not replace the need to change your lifestlyle which is the cause of the obesity problem. The surgery provides the motivation to try again to change your lifestyle, it reduces the appetite and make the transition to a better lifestyle easier and doubles the amount of weight you would lose compared to doing the lifestyle change without the surgery. You will need to be on a liquid diet with protein shakes for 2 weeks before surgery to maximize weight loss and boost your nutritional status to recover better from surgery and also for the first two weeks after surgery to let the stomach heal before we introduce other foods. After the first 2 weeks we will introduce protein bars and soft foods like scrambled eggs, cottage cheese and yogurt and after the 6th week will introduce meat, fish and cooked vegetables in small amounts. Over time you should be able to eat everything in small amounts. Side effects like nausea, vomiting, heartburn or abdominal pain are not common in the practice unless you are not following in the practice. This operation requires lifetime commitment to following in our practice and communication with me. You will much less weight and experience side effects if you don?t communicate or not following in the practice. Complications are rare and in our practice is about 1/10 of the national average. However, you can develop bleeding that may require transfusion (hasn?t happened for year in the practice), you may from complications (we did not have any deaths in the practice) and infections. Infections are usually a result of breakdown in communication or not understanding or following directions correctly. They are difficult to treat, they can happen during the first 6 weeks, they may require to be in the hospital for weeks or even months, not being able to eat by mouth and you may have drains and surgeries to try and correct the issue. Other risks and complications include possible conversion to an open procedure, leaks, small bowel obstruction, blood clots, cardiac, or pulmonary complications, as medical terminologist complications such as ulcers, insufficient weight loss and vitamin deficiencies. 2.? Nutritional counseling. Start with one premade Premier protein (buy at [employer], or [employer]) shakes (mix 4oz of Premier with 4oz low fat unsweetened almond milk each) at 7am-9am, 3 protein bars (Fit Crunch protein bars, buy at [employer],? [employer], [employer], or [employer]) at 10am-12pm, 1pm-3pm and 4pm-6pm, dinner at 7pm (8 forks of protein and 8 forks of salad/vegetables). So you do 1 protein shake, 3 protein bars and one meal per day. Meal to include lean meat (beef, fish, pork, turkey, chicken), or turks and ca[place] islander yogurt, or egg whites, or beans with a salad with olive oil and fruits (berries, pears, apples, kiwi). Avoid salt, breads, potatoes, rice, pasta, desserts. 3. Each shake would be drunk slowly, like coffee in a period of 2 hours. 4. Cut each bar in 4 pieces and eat each piece in 30min ?to make each bar last 2 hours. 5. I emphasized the importance of measuring accurately the food portion and measure it when serving the food in plate 6. The meal portions include 8 full-size forks of meat and 8 full-size forks of salad. You always eat the meat portion but you can replace up to 4 forks for salad/vegetables with rice, potatoes or pasta, or a fruit ?if you like. The less you do it the better weight loss will be. 7. One full-size fork is what it can be scooped on the fork without falling aside and not what can be bit with the fork. Use regular forks like those you find in a typical restaurant. 8.? Please buy the body composition scale we discussed and send me weight measurements as soon as possible and then once a week. Always include your diet and exercise plan. 9. Start treadmill with an incline of 2.0 and speed of 3.0. Increase incline by 1 every 3 min to a max incline of 8.0, stay 3min at 8.0 and then return to 2.0 and repeat same steps until calorie goal is met. Goal is to burn 2000 calories per week on exercise, which means either 300 calories daily. 10. Alternatively start stationary bike at a resistance level of 4.0 Increase level by 1.0 every 3 min to a max level of 10.0. Stay at this level for 3 min and then return to level 4.0 and repeat same steps until 300 calories are burned. Velocity target is 12mph and heart rate is 145 bpm. Goal is to burn 2000 calories per week on exercise 11. Goal is to lose at least 1.5-2lbs per week 12. Goal to lose 10% of your weight before surgery, which is about 22lbs. Ultimate weight goal: 195lbs before surgery 13. Please follow the diet plan exactly without any change. If you don't like something about the plan or you feel hungry you need to communicate with me so I can help you revise the plan. You should not change the plan yourself 14. To be scheduled for EGD to assess the stomach's anatomy. The possibility of biopsies was discussed. Patient needs to avoid use of NSAIDs and aspirin for 1 week prior to EGD. You must be on liquids only the day before your endoscopy. Risks of perforation and bleeding was discussed with the patient. This will be an outpatient procedure with IV sedation. Orders: Orders Insulin Today E66.9 - Obesity, unspecified, E78.5 - Hyperlipidemia, unspecified, I10 - Essential (primary) hypertension, K21.9 - Gastro-esophageal reflux disease without esophagitis, Z68.35 - Body mass index [BMI] 35.0-35.9, adult Hemoglobin A1c Today E66.9 - Obesity, unspecified, E78.5 - Hyperlipidemia, unspecified, I10 - Essential (primary) hypertension, K21.9 - Gastro-esophageal reflux disease without esophagitis, Z68.35 - Body mass index [BMI] 35.0-35.9, adult Lipid Panel Today E66.9 - Obesity, unspecified, E78.5 - Hyperlipidemia, unsp ecified, I10 - Essential (primary) hypertension, K21.9 - Gastro-esophageal reflux disease without esophagitis, Z68.35 - Body mass index [BMI] 35.0-35.9, adult IRON PROFILE Today E66.9 - Obesity, unspecified, E78.5 - Hyperlipidemia, unspecified, I10 - Essential (primary) hypertension, K21.9 - Gastro-esophageal reflux disease without esophagitis, Z68.35 - Body mass index [BMI] 35.0-35.9, adult Comprehensive Met. Panel Today E66.9 - Obesity, unspecified, E78.5 - Hyperlipidemia, unspecified, I10 - Essential (primary) hypertension, K21.9 - Gastro-esophageal reflux disease without esophagitis, Z68.35 - Body mass index [BMI] 35.0-35.9, adult Vitamin B12 and Folate Today E66.9 - Obesity, unspecified, E78.5 - Hyperlipi demia, unspecified, I10 - Essential (primary) hypertension, K21.9 - Gastro- esophageal reflux disease without esophagitis, Z68.35 - Body mass index [BMI] 35.0-35.9, adult Zinc Today E66.9 - Obesity, unspecified, E78.5 - Hyperlipidemia, unspecified, I10 - Essential (primary) hypertension, K21.9 - Gastro-esophageal reflux disease without esophagitis, Z68.35 - Body mass index [BMI] 35.0-35.9, adult C Reactive Protein Today E66.9 - Obesity, unspecified, E78.5 - Hyperlipidemia, unspecified, I10 - Essential (primary) hypertension, K21.9 - Gastro-esophageal reflux disease without esophagitis, Z68.35 - Body mass index [BMI] 35.0-35.9, adult Vitamin A Today E66.9 - Obesity, unspecified, E78.5 - Hyperlipidemia, unspecifi ed, I10 - Essential (primary) hypertension, K21.9 - Gastro-esophageal reflux disease without esophagitis, Z68.35 - Body mass index [BMI] 35.0-35.9, adult TSH reflex Free T4 Today E66.9 - Obesity, unspecified, E78.5 - Hyperlipidemia, unspecified, I10 - Essential (primary) hypertension, K21.9 - Gastro-esophageal reflux disease without esophagitis, Z68.35 - Body mass index [BMI] 35.0-35.9, adult Vitamin D 25-OH Total Today E66.9 - Obesity, unspecified, E78.5 - Hyperlipidemia, unspecified, I10 - Essential (primary) hypertension, K21.9 - Gastro-esophageal reflux disease without esophagitis, Z68.35 - Body mass index [BMI] 35.0-35.9, adult US abdomen comp w elastography Today E66.9 - Obesity, unspecified, E78.5 - Hyp erlipidemia, unspecified, I10 - Essential (primary) hypertension, K21.9 - Gastro-esophageal reflux disease without esophagitis, Z68.35 - Body mass index [BMI] 35.0-35.9, adult ECG 12 lead EKG Today E66.9 - Obesity, unspecified, E78.5 - Hyperlipidemia, unspecified, I10 - Essential (primary) hypertension, K21.9 - Gastro-esophageal reflux disease without esophagitis, Z68.35 - Body mass index [BMI] 35.0-35.9, adult FL upper GI w air Today E66.9 - Obesity, unspecified, E78.5 - Hyperlipidemia, unspecified, I10 - Essential (primary) hypertension, K21.9 - Gastro-esophageal reflux disease without esophagitis, Z68.35 - Body mass index [BMI] 35.0-35.9, adult H Pylori Breath Test Today E66.9 - Obesity, unspecified, E78.5 - Hyperlipidemia, unspecified, I10 - Essential (primary) hypertension, K21.9 - Gastro-esophageal reflux disease without esophagitis, Z68.35 - Body mass index [BMI] 35.0-35.9, adult Complete Blood Count Auto Diff Today E66.9 - Obesity, unspecified, E78.5 - Hyperlipidemia, unspecified, I10 - Essential (primary) hypertension, K21.9 - Gastro-esophageal reflux disease without esophagitis, Z68.35 - Body mass index [BMI] 35.0-35.9, adult Vitamin B1 Today E66.9 - Obesity, unspecified, E78.5 - Hyperlipidemia, unspecified, I10 - Essential (primary) hypertension, K21.9 - Gastro-esophageal reflux disease without esophagitis, Z68.35 - Body mass index [BMI] 35.0-35.9, adult Ferritin Today E66.9 - Obesity, unspecified, E78.5 - Hyperlipidemia, unspecified, I10 - Essential (primary) hypertension, K21.9 - Gastro-esophageal reflux disease without esophagitis, Z68.35 - Body mass index [BMI] 35.0-35.9, adult XR chest 2V Today E66.9 - Obesity, unspecified, E78.5 - Hyperlipidemia, unspecified, I10 - Essential (primary) hypertension, K21.9 - Gastro-esophageal reflux disease without esophagitis, Z68.35 - Body mass index [BMI] 35.0-35.9, adult Referrals Behavioral Health Referral E66.9 - Obesity, unspecified, E78.5 - Hyperlipidemia, unspecified, I10 - Essential (primary) hypertension, K21.9 - Gastro-esophageal reflux disease without esophagitis, Z68.35 - Body mass index [BMI] 35.0-35.9, adult Nutrition/Dietitian Referral E66.9 - Obesity, unspecified, E78.5 - Hyperlipidemia, unspecified, I10 - Essential (primary) hypertension, K21.9 - Gastro-esophageal reflux disease without esophagitis, Z68.35 - Body mass index [BMI] 35.0-35.9, adult
[2025-02-21 08:03] VITALS: BP 161/81; PULSE 78; TEMP 36.3; O2SAT 95; BMI 34.1
== END 2025-02-21 17:56 | disposition home or self-care (01) ==
LOC: HO.HBS 07:51
PROVIDERS: PCP Internal Medicine; Visit Provider Surgery
DX: E66.9 Obesity, unspecified (principal)
CPT/HCPCS: 99204

== ENCOUNTER → 2025-02-21 07:50 | Outpatient (BNVA) | payer MEDICARE, SELFPAY | PROVIDERS: PCP Internal Medicine; Visit Provider Surgery | DX: E66.9 Obesity, unspecified (principal); I10 Essential (primary) hypertension; E78.5 Hyperlipidemia, unspecified; K21.9 Gastro-esophageal reflux disease without esophagitis; Z68.34 Body mass index [BMI] 34.0-34.9, adult | CPT/HCPCS: 99202 ==

== ENCOUNTER 2025-02-24 06:09 | Outpatient (REF) | payer MEDICARE, SELFPAY ==
--- NOTE | ~2025-02-24 | XR_ITS ---
EXAMINATION: XR CHEST 2 VIEWS HISTORY: E66.9 - Obesity, unspecified COMPARISON: Comparison is made with the prior examination dated 10/12/2021. FINDINGS: PA and lateral views of the chest are submitted. There is linear subsegmental atelectasis in the lingula. The right lung is clear. There is no pleural effusion, pneumothorax, or pulmonary vascular congestion. The heart is normal in size. The bones are intact. There are suture anchors in the left humeral head. XR/XR chest 2V IMPRESSION: Linear subsegmental atelectasis in the lingula. Electronically signed by: Myron Chatman MD 02/24/2025 07:41 AM EDT
--- OUTSIDE RECORDS SUMMARY | 2025-02-24 06:12 | XMS_ITS | Data Portability ---
Author Organization [facility], [address] Address [address] [place] [address] Assessment No assessment recorded. Plan of Treatment Reminders Order Date Submit Date Provider Last Modified By Organization Details Last Modified Time Details Appointments None recorded. Lab rapid SARS CoV 2 Ag, QL IA, respiratory specimen 2022 023 [email or web address] [facility], [address] [place] [address], [phone], 3 16:53:56 rapid flu (A+B) 2022 023 [email or web address] 20995[facility], [address] [place] [address], [phone], 3 16:53:56 Referral None recorded. Procedures None recorded. Surgeries None recorded. Imaging None recorded. Medication Orders albuterol sulfate HFA 90 mcg/actuati on aerosol inhaler 2022 023 [facility], [address] [place], [address], 3 16:53:58 prednisone 20 mg tablet 2022 023 [facility], [address] [place], [address], 3 16:54:00 azithromyci n 250 mg tablet 2022 023 [facility], [address] [place], [address], 16:54:00 Sheeba Perlkassidy 100 mg capsule 2022 023 [email or web address], [address] [facility], [place], [address], 16:53:59 Patient TargetsNo targets recorded. Patient Instructions Encounter Date Encounter Id Patient Instructions Last Modified By Organization Details Last Modified Time 11/01/2022 [id number] cough: care instructions [email or web address] Not available 11/01/2022 16:53:57 Reason for Referral None Reported. Results Created Date Observation Date Name Description Value Unit Range Abnormal Flag Note LastModifiedBy Organization Detail LastModifiedTime 11/01/1911/01/2022 rapid SARS CoV 2 Ag, QL IA, respi rator y speci men Unknown Analyte Normal =Negat petty Not Available olga lidia [address], [address], 11/01/2022 16:16:20 11/01/19 23 11/01/2022 rapid SARS CoV 2 Ag, QL IA, respi rator y speci men Unknown Analyte negati ve Not Available 2099olga lidia [address], [address], 11/01/2022 16:16:20 11/01/19 23 11/01/2022 rapid flu (A+B) Unknown Analyte Normal = Negati ve Not Available [address] [place] [address], [address], 11/01/2022 16:16:32 11/01/19 23 11/01/2022 rapid flu (A+B) Unknown Analyte Normal = Negati ve Not Available [address] [place] [address], [address], 11/01/2022 16:16:32 11/01/19 23 11/01/2022 rapid flu (A+B) Unknown Analyte negati ve Not Available [address] lidia [facility] [address] [place], [address], 11/01/2022 16:16:32 11/01/19 23 11/01/2022 rapid flu (A+B) Unknown Analyte negati ve Not Available [facility] lid[facility] [address] [place], [address], 11/01/2022 16:16:32 Result Notes None recorded. Problems Name Problem SNOMED Code Status Onset Date Resolution Date Notes Provider Name and Address Organization Details Recorded Time Hypertensive disorder 80418923 Active 2022 Carmella Quilcene null, PA - [facility] 3 16:14:49 Hyperlipidemia 62092821 Active 2022 Carmella Quilcene null, PA - [facility] 3 16:15:05 Hernia of abdominal cavity 11049110 Active 2022 Carmella Denise null, PA - [facility] 3 16:15:22 Asthma 867277572 Active 2022 Carmella Quilcene null, PA - [facility] 3 16:15:35 Problem Notes None recorded. Medical Equipment None Reported. Allergies Allergen ID Allergen Name Allergen Category Reaction Reaction Severity Criticality Documentation Date Start Date Code Code System Note Provider Name and Address Organization Details Recorded Time 833499 ciproflox acin medicatio n angioedem a Not available high 11/01/2022 2551 RxNorm Carmella Quilcene null, PA - [facility] 3 16:12:29 [...] Updated DateTime 3 167.64 cm 33.1 kg/m2 98689.4 4 g 97 % 97 % 56 /min 20 /min 98 [degF] 166 mm[Hg] 90 mm[Hg] Carmella Walker PA - [facility] 16:19:11 Social History Question Answer Notes LastModified by [employer] Details LastModified Time Tobacco Smoking Status Never Smoker Carmellasharee Walker null, PA - [facility] 11/01/2022 16:15:51 Have You Had Direct Contact, Or Contact During Intimacy, With Monkeypox Rash, Scabs, Or Body Fluids From A Person With Monkeypox? No Information not available 11/01/2022 Have You Recently Traveled Abroad? No Information not available 11/01/2022 Sex: Unknown Functional Status Question Answer Note LastModified by [employer] Details LastModified Time How many times per [...] split virus, quadrivalent, preservative 9 completed Carmella Quilcene null, PA - [facility] 11/01/2022 16:12:18 Influenza, split virus, quadrivalent, preservative 8 completed Carmella Denise null, PA - [facility] 11/01/2022 16:12:18 Influenza, MDCK, quadrivalent, PF 1 completed Carmella Quilcene null, PA - [facility] 11/01/2022 16:12:18 Influenza, MDCK, quadrivalent, PF 8 completed Carmella Denise null, PA - [facility] 11/01/2022 16:12:18 Influenza, MDCK, quadrivalent, PF 0 completed Carmella Quilcene null, PA - [facility] 11/01/2022 16:12:18 Influenza, MDCK, quadrivalent, PF 2 completed Carmella Denise null, PA - [facility] 11/01/2022 16:12:18 Influenza, MDCK, quadrivalent, PF 7 completed Carmella Denise null, PA - [facility] 11/01/2022 16:12:18 zoster recombinant 1 completed Carmella Quilcene null, PA - [facility] 11/01/2022 16:12:18 zoster recombinant 0 completed Carmella Quilcene null, PA - [facility] 11/01/2022 16:12:18 COVID-19, mRNA, LNP-S, PF, 30 mcg/0.3 mL dose 2 completed Carmella Quilcene null, PA - [facility] 11/01/2022 16:12:18 COVID-19, mRNA, LNP-S, PF, 30 mcg/0.3 mL dose 1 completed Carmella Denise null, PA - [facility] 11/01/2022 16:12:18 COVID-19, mRNA, LNP-S, PF, 30 mcg/0.3 mL dose 1 completed Carmella Denise null, PA - [facility] 11/01/2022 16:12:18 Pneumococcal conjugate PCV20, polysaccharide [id number] conjugate, adjuvant, PF 2 completed Carmella Denise null, PA - [facility] 11/01/2022 16:12:18 COVID-19, mRNA, LNP-S, bivalent, PF, 30 mcg/0.3 mL dose 2 completed Carmella Denise null, PA - [facility] 11/01/2022 16:12:18 pneumococcal polysaccharide PPV23 0 completed Carmella Quilcene null, PA - [facility] 11/01/2022 16:12:18 Tdap 3 completed Carmella Denise null, PA - [facility] 11/01/2022 16:12:18 Tdap 9 completed Carmella Denise null, PA - [facility] 11/01/2022 16:12:18 Tdap 0 completed Carmella Denise null, PA - [facility] 11/01/2022 16:12:18 Influenza, high-dose, trivalent, PF 9 completed Cramella Denise null, PA - [facility] 11/01/2022 16:12:18 Influenza, split virus, trivalent, preservative 6 completed Carmella Quilcene null, PA - [facility] 11/01/2022 16:12:18 Past Encounters Encounter ID Performer Location Encounter Start Date Encounter Closed Date Diagnosis/Indication Diagnosis SNOMED-CT Code Diagnosis ICD10 Code Diagnosis [place] [id number] [place] [address] [address] 11/01/2022 14:58:42 11/01/2022 17:00:28 Cough 06107112 R05.9 Given Hx and Sx will Rx [...] Broderick Member ID Guarantor Name 11/01/2022 1 [facility] (O) [id number] Donnell Fenton [id number] Donnell Fenton Notes Date Note Type [...] Lynne, DO [address] [place], [address], PA - [facility] 11/01/2022 17:00:04
[2025-02-24 06:32] LABS: MANUAL DIFF FLAG NO
[2025-02-24 07:20] LABS: Basophils Percent Auto 0.9 % (0-2); Eosinophils Absolute Auto 0.4 X10*3/uL (0.0-0.4); Eosinophils Percent Auto 9.1 % (0-4); Hematocrit 39.4 % (42.0-52.0); Hemoglobin 13.2 g/dl (14.0-18.0); Imm Gran Abs Auto 0.01 X10*3/uL (0.00-0.03); Imm Gran Pct Auto 0.2 % (0.0-0.4); Lymphocytes Absolute Auto 1.6 X10*3/uL (1.2-4.9); Lymphocytes Percent Auto 35.5 % (20-40); Mean Corpuscular HGB Conc 33.5 g/dl (31.0-36.0); Mean Corpuscular Hemoglobin 30.3 pg (27.0-33.0); Mean Corpuscular Volume 90.6 fL (80.0-98.0); Monocytes Absolute Auto 0.4 X10*3/uL (0.1-1.2); Monocytes Percent Auto 9.1 % (2-11); Neutrophils Absolute Auto 2.1 x10*3/uL (2.0-8.3); Neutrophils Percent Auto 45.2 % (45-73); Platelet Count 242 X10*3/uL (160-400); Red Blood Count 4.35 X10*6/uL (4.60-5.80); White Blood Count 4.5 X10*3/uL (4.8-10.8)
--- NOTE | 2025-02-24 07:36 | ECG_ITS ---
Test Reason : e66.9 Blood Pressure : */* mmHG Vent. Rate : 62 BPM Atrial Rate : 62 BPM P-R Int : 204 ms QRS Dur : 110 ms QT Int : 418 ms P-R-T Axes : 14 -14 -3 degrees QTcB Int : 424 ms Normal sinus rhythm Incomplete right bundle branch block Nonspecific T wave abnormality Abnormal ECG When compared with ECG of 30-Apr-2008 03:51, Incomplete right bundle branch block has replaced Right bundle branch block Referred By: Júnior Montaño Electronically Signed By: Johnnie Damon
[2025-02-24 07:50] LABS: Estimated Average Glucose 103 mg/dL; Hemoglobin A1C 114.4038 umol/L; Hemoglobin A1c % 5.2 % (<6.0)
[2025-02-24 07:55] LABS: Albumin Level 4.5 g/dL (3.5-5.0); Alkaline Phosphatase 53 U/L (39-117); Anion Gap 14 (12-20); Aspartate Amino Transferase 27 U/L (5-37); Bilirubin Total 0.8 mg/dL (0.0-1.0); Blood Urea Nitrogen 19 mg/dL (9-16); C Reactive Protein 0.31 mg/dL (< or = 0.50); Calcium 9.7 mg/dL (8.4-10.2); Carbon Dioxide 29 mmol/L (22-29); Chloride 103 mmol/L (96-108); Cholesterol 239 mg/dL (<200); Estimated Glomerular Filt Rate > 60; Glucose Random 101 mg/dL (60-115); HDL Cholesterol 50 mg/dL (>40); Iron 81 mcg/dL (45-160); LDL Cholesterol Calculated 148 mg/dL (<100); Percent Iron Saturation 25 % (15-50); Potassium 3.6 mmol/L (3.3-5.1); Sodium 142 mmol/L (135-145); Total Iron Binding Capacity 319 mcg/dL (228-428); Total Protein 7.5 g/dL (6.5-8.0); Triglycerides 207 mg/dL (<150); Unsaturated Iron Binding 238 ug/dL
[2025-02-24 08:20] LABS: Folate 15.7 ng/mL (> or = 4.0); Vitamin B12 1120 pg/mL (200-900)
[2025-02-24 08:22] LABS: Alanine Aminotransferase 31 U/L (0-40); Ferritin 412 ng/mL (20-250); TSH reflex Free T4 2.01 uIU/mL (0.32-4.0); Vitamin D 25-OH Total 43.2 ng/mL (>30)
[2025-02-24 08:30] LABS: Insulin 8 uU/mL (2-29)
[2025-02-27 19:28] LABS: Zinc 70 mcg/dL (60-130)
[2025-02-28 00:29] LABS: Vitamin A 103 mcg/dL (38-98)
[2025-03-02 15:14] LABS: Vitamin B1 17 nmol/L (8-30)
== END 2025-02-24 06:10 | disposition home or self-care (01) ==
LOC: HO.XRAY 06:09
PROVIDERS: Visit Provider Surgery
DX: E66.811 Obesity, class 1 (principal); I10 Essential (primary) hypertension; E78.5 Hyperlipidemia, unspecified; K21.9 Gastro-esophageal reflux disease without esophagitis; I45.19 Other right bundle-branch block; Z68.35 Body mass index [BMI] 35.0-35.9, adult
CPT/HCPCS: 36415; 71046; 80053; 80061; 82306; 82607; 82728; 82746; 83036; 83525; 83540; 84425; 84443; 84590; 84630; 85025; 86140; 93005

== ENCOUNTER → 2025-02-24 06:37 | Outpatient (BNV) | payer MEDICARE, SELFPAY | PROVIDERS: Visit Provider Radiology Diagnostic Radiology | DX: J98.11 Atelectasis (principal) | CPT/HCPCS: 71046 ==

== ENCOUNTER → 2025-02-24 07:36 | Outpatient (BNV) | payer MEDICARE, SELFPAY | PROVIDERS: Visit Provider Internal Medicine Cardiovascular Disease | DX: I45.10 Unspecified right bundle-branch block (principal) | CPT/HCPCS: 93010 ==

== ENCOUNTER 2025-04-01 16:21 | Outpatient (AMB) | payer MEDICARE, SELFPAY ==
[2025-04-01 16:29] VITALS: BP 130/96; PULSE 59; O2SAT 95; BMI 31.5
--- NOTE | 2025-04-01 16:29 | A.OFFPC_ITS ---
Vital Signs 04/01/25 16:29 Height 5 ft 7 in Weight 201 lb BMI 31.5 BP 130/96 H Blood Pressure Location Lt brachial Position Sitting Pulse 59 Pulse Source Pulse Oximeter Pulse Oximetry (%) 95 Oxygen Delivery Method Room Air Intake Visit Reasons: KAREN Graves Clinical Data Specialist Required: No Accompanied by: Self / Same As Patient Allergies ciprofloxacin (From Cipro) Allergy (Mild, Verified 04/01/25 17:03) SWELLING, anaphylaxis atorvastatin Adverse Reaction (Intermediate, Verified 04/01/25 17:12) dizziness, lightheadedness simvastatin Adverse Reaction (Intermediate, Verified 04/01/25 17:12) dizziness, lightheadedness Medication List - Last Reconciled 04/01/25 by Hank Graves MD albuterol sulfate 90 mcg/actuation (Ventolin HFA) 1 inh inhalation QID PRN aspirin (Adult Low Dose Aspirin) 81 mg PO DAILY fluticasone propionate 50 mcg/actuation 1 spray intranasal DAILY hydrochlorothiazide 25 mg PO QAM ipratropium bromide 17 mcg/actuation 1 puff inhalation QID 30 days lisinopril 40 mg PO DAILY metoprolol succinate ER 25 mg PO DAILY omeprazole 20 mg PO BID 30 days sildenafil 100 mg PO ONCE PRN 30 days tamsulosin 0.4 mg PO BEDTIME 90 days Tobacco use date assessed: 04/01/25 Fall risk assessment: No Falls in past year Last assessed Fall Risk: 04/01/25 Dental Screening Dental Screen Date: 04/01/25 Did you have a dental visit in the last 12 months?: Yes Did you have a dental problem in the last 6 months where you did not have access to dental care?: No Was dental information given to patient?: Patient has dentist VIKRAM Graves [facility] Details Patient comes in today for his follow-up visit - is transferring care over from Dr. Vaughn, who retired from the practice a few months ago Patient states that he has multiple medical issues and is scheduled to go for a sleep study at [facility] on 05/06/2025 States that he is currently also following up with weight management for his weight issues He reports that he has been experiencing increased pain over his right shoulder lately; states that he has had problems with his left shoulder as well in the past but his left shoulder symptoms appear to have subsided recently He will still reports experiencing increased pain over his lower back over the past few weeks States that he has had back problems in the past and does not recall any recent activities that could have aggravated his low back pain He denies any headaches or dizziness Denies any chest pains, no increased shortness of breath No nausea/vomiting, no abdominal pain No change in bowel habits noted He had his follow-up labs done last month - to discuss his results [facility] Medical History (Updated 04/03/25 @ 04:30 by Hank Graves MD) Allergic rhinitis Obesity (BMI 30-39.9) Essential hypertension Mixed hyperlipidemia BMI 35.0-35.9,adult Basal cell carcinoma of skin Barretts esophagus Anemia Hiatal hernia GERD (gastroesophageal reflux disease) BPH (benign prostatic hyperplasia) COPD (chronic obstructive pulmonary disease) Sinus infection Hematoma of right lower leg Fall Eczema Weak urinary stream Nocturia Stenosis of left anterior descending (LAD) artery Atherosclerotic cardiovascular disease Chest discomfort Other and unspecified hyperlipidemia Hypertension URI (upper respiratory infection) Surgical History H/O shoulder surgery S/P LASIK surgery of both eyes History of colonoscopy Family History Mother Hypertension Diabetes Father Hypertension CAD (coronary artery disease) Brother No problems noted. Brother No problems noted. Brother No problems noted. Brother No problems noted. Sister No problems noted. Sister No problems noted. Sister No problems noted. Sister No problems noted. Son No problems noted. Son No problems noted. Daughter No problems noted. Social History Housing: House Alcohol intake: current Alcohol intake frequency: a few times a week Patient Tobacco Use Status: Former Tobacco user Tobacco use type: Cigarette e-Cigarette/Vaping Use: Never Used Second Hand Smoke Exposure: No service: No Current occupational status: employed Cognitive needs: No Hearing needs: Yes (hearing aide) Vision needs: Yes (glasses) Questionnaire PHQ-9 Over the last 2 weeks, how often have you been bothered by any of the following problems? 1. Little interest or pleasure in doing things: nearly every day 2. Feeling down, depressed, or hopeless: not at all 3. Trouble falling or staying asleep, or sleeping too much: not at all 4. Feeling tired or having little energy: more than half the days 5. Poor appetite or overeating: not at all 6. Feeling bad about yourself - or that you are a failure or have let yourself or your family down: not at all 7. Trouble concentrating on things, such as reading the newspaper or watching television: not at all 8. Moving or speaking so slowly that other people could have noticed. Or the opposite - being so fidgety or restless that you have been moving around a lot more than usual: not at all 9. Thoughts that you would be better off or of hurting yourself in some way: not at all Total score: 5 Depression Screening Interpretation: Positive Depression Screening Follow-up: Follow-up Visit Requested Depression Screening Done: Yes 30898 - PHQ-9 Billing: Yes Source: Developed by Drs. Myron Coleman, Izabella Brenner, Jeffry Martin and colleagues, with an educational violette from [employer]. Thrive Questionnaire Date Thrive assessed: 04/01/25 I am a: Patient What is your living situation today?: I have a steady place to live Within the past 12 months, did the food you bought not last and you didn't have the money to get more?: Never true Within the past 12 months, did you worry whether your food would run out before you got money to buy more?: I choose not to answer this question Do you have trouble paying for medicines?: No Do you have trouble getting transportation to medical appointments?: I choose not to answer this question Do you have trouble paying your heating and electricity bill?: No Do you have trouble taking care of your child, family member or friend?: No Do you have trouble with day-to-day activities such as bathing, preparing meals, shopping, managing finances, etc.?: No Are you currently unemployed and looking for a job?: No Are you interested in more education?: No Please select the resources that you would like help with: None Currently or been in a relationship where the following occur: I choose not to answer THRIVE Score: 0 AUDIT C Alcohol Use Questionnaire (AUDIT-C) 1. How often do you have a drink containing alcohol?: 2-3 times a week 2. How many drinks containing alcohol do you have on a typical day when you are drinking?: 1 or 2 3. How often do you have six or more drinks on one occasion?: Never Total Score: 3 Score Reviewed/Action Taken: Yes DAV-7 AMB Questionnaire DAV-7 Date DAV - 7 assessed: 04/01/25 Feeling nervous, anxious, or on edge: 0 = Not at all Not being able to stop or control worryin = Not at all Worrying too much about different things: 0 = Not at all Trouble relaxin = Not at all Being so restless that it is hard to sit still: 0 = Not at all Becoming easily annoyed or irritable: 0 = Not at all Feeling afraid as if something awful might happen: 0 = Not at all Total DAV-7 score (0-4 normal; 5-9 mild; 10-14 moderate; 15-21 severe): 0 Source: Developed by Drs. Myron Coleman, Izabella Brenner, Jeffry Martin and colleagues, with an educational violette from [employer]. Review of Systems Const Denies chills, Reports daytime sleepiness, Reports fatigue, Denies fever(s) and Denies headache(s) ENT Denies dysphagia, Denies dizziness, Denies otalgia, Denies headache(s), Reports hearing loss (has hearing aids but has a hard time using them), Denies neck pain, Denies odynophagia and Denies sore throat Card Denies chest pain, Denies palpitations and Denies dyspnea Resp Denies chest congestion, Denies cough and Denies dyspnea GI Denies abdominal pain, Denies constipation, Denies dysphagia, Denies heartburn, Denies diarrhea, Denies nausea, Denies odynophagia and Denies vomiting Denies difficulty urinating, Denies dysuria, Denies nocturia and Denies urinary frequency Musc Reports back pain (increased over the lower back lately), Reports arthralgias (especially in the right shoulder) and Denies neck pain Skin/Breast Denies rash Neuro Denies dizziness and Denies headache(s) Psych Denies anxiety and Denies depression Endo Reports fatigue and Denies palpitations Physical exam (Primary Care) Vital Signs: Last Vital Signs Pulse 59 04/01/25 16:29 BP 130/96 H 04/01/25 16:29 Pulse Ox 95 04/01/25 16:29 Oxygen Delivery Method Room Air 04/01/25 16:29 BMI result Body Mass Index 31.5 Tobacco/Smoking Status: Tobacco use Status Tobacco use date assessed 04/01/25 04/01/25 16:33 Patient Tobacco Use Status Former Tobacco user 04/01/25 16:33 Tobacco use type Cigarette 04/01/25 16:33 e-Cigarette/Vaping Use Never Used 04/01/25 16:33 PHQ-9: PHQ-9 Score PHQ-9: Total score 5 04/02/25 06:21 Depression Screening Interpretation: Positive Depression Screening Follow-up: Follow-up Visit Requested Thrive Assessment: Date of Thrive Assessment Date Thrive assessed 04/01/25 04/01/25 16:33 Currently or been in a relationship where the following occur: I choose not to answer Const General: no acute distress and alert HENMT Ears: TM's normal bilaterally and EAC's normal Throat: Yes posterior oropharynx normal and Yes tonsils normal (no TP congestion) Neck Neck: Yes supple and No lymphadenopathy Thyroid: Thyroid normal Resp Auscultation: clear to auscultation bilaterally, no rales and no wheezes Cardio Rate: regular rate Rhythm: regular rhythm Heart sounds: no murmurs GI Palpation (GI): Soft to palpation and nontender Auscultation: normal bowel sounds General: Yes no CVA tenderness Back/Spine/Pelvis Back: no CVA tenderness Thoracic/Lumbar Spine: lumbar spinal tenderness (mild) Skin Rashes: no rashes Extrem General: Yes no clubbing, cyanosis or edema Results Reviewed Results Reviewed: Laboratory Tests 02/24/25 06:29 WBC 4.5 L Hgb 13.2 L Hct 39.4 L Plt Count 242 Sodium 142 Potassium 3.6 Creatinine 0.77 Estimated GFR > 60 Random Glucose 101 Hemoglobin A1c % 5.2 Calcium 9.7 Ferritin 412 H AST 27 ALT 31 Triglycerides 207 H Cholesterol 239 H LDL Cholesterol, Calc 148 H HDL Cholesterol 50 Vitamin A 103 H Vitamin B1 17 Vitamin B12 1120 H 25-OH Vitamin D Total 43.2 Folate 15.7 TSH 2.01 Zinc 70 Coding Level of Care Code Est Pt Level 4 (23316) Complex EM visit Add On G2211 Diagnoses Atherosclerotic cardiovascular disease I25.10 Mixed hyperlipidemia E78.2 Essential hypertension I10 Chronic obstructive pulmonary disease, unspecified COPD type J44.9 COPD type: unspecified COPD Obstructive sleep apnea G47.33 Chronic GERD K21.9 Bilateral shoulder pain, unspecified chronicity M25.511; M25.512 Chronicity: unspecified Left-sided low back pain without sciatica, unspecified chronicity M54.50 Chronicity: unspecified Back pain laterality: left Sciatica presence: without sciatica Impaired fasting glucose R73.01 Allergic rhinitis, unspecified seasonality, unspecified trigger J30.9 Allergic rhinitis trigger: unspecified Allergic rhinitis seasonality: unspecified Benign prostatic hyperplasia with weak urinary stream N40.1; R39.12 Lower urinary tract symptom presence: symptoms present Lower urinary tract symptom detail: weak urinary stream Erectile dysfunction, unspecified erectile dysfunction type N52.9 Erectile dysfunction type: unspecified Obesity (BMI 30-39.9) E66.9 Additional Codes PHQ-9 - 32623 - PHQ-9 Billing: Yes ([id number]) Assessment & Plan Assessment & Plan (1) Atherosclerotic cardiovascular disease: Code(s): I25.10 - Atherosclerotic heart disease of [place] coronary artery without angina pectoris Category: Medical Plan: Continue Metoprolol ER 25 mg QD and Aspirin 81 mg QD Follow up with cardiology as scheduled (2) Mixed hyperlipidemia: Code(s): E78.2 - Mixed hyperlipidemia Category: Medical Plan: Results of her labs done last month reviewed and discussed with patient - have cautioned patient that his cholesterol levels have increased significantly from previous Patient admits that he stopped taking his cholesterol medications a while ago due to side effects - he reportedly experience frequent lightheadedness and dizziness after taking simvastatin and atorvastatin in the past and states that these symptoms cleared up as soon as he stopped taking both medications Reinforced low-cholesterol diet Will start patient on a trial of low-dose rosuvastatin 5 mg QD Have advised patient that if he starts experiencing similar symptoms with rosuvastatin, he then to stop taking the medication and inform us immediately If he is not able to tolerate rosuvastatin as well, we will then need to consider starting him on the newer PCSK9 inhibitors to help lower his cholesterol levels Will have patient recheck his labs and fasting lipids in 4 months for follow-up (3) Essential hypertension: Code(s): I10 - Essential (primary) hypertension Category: Medical Plan: Reinforced low-sodium diet - goal systolic BP of 120 mm or less Continue lisinopril 40 mg QD, Metoprolol ER 25 mg QD and HCTZ 25 mg Q AM Patient is reminded to continue monitoring his blood pressure regularly (4) COPD (chronic obstructive pulmonary disease): Code(s): J44.9 - Chronic obstructive pulmonary disease, unspecified Category: Medical Qualifiers: COPD type: unspecified COPD Qualified Code(s): J44.9 - Chronic obstructive pulmonary disease, unspecified Plan: Controlled - continue Ipratropium bromide 17 mcg 1 inhalation QID and Albuterol HFA 1 to 2 inhalations Q 6 hours PRN (5) Obstructive sleep apnea: Code(s): G47.33 - Obstructive sleep apnea (adult) (pediatric) Category: Medical Plan: Patient states that he is scheduled to undergo a sleep study at [facility] in early May 2025 Follow-up with sleep medicine as scheduled (6) Chronic GERD: Code(s): K21.9 - Gastro-esophageal reflux disease without esophagitis Category: Medical Plan: Dietary restrictions reinforced Continue omeprazole 20 mg BID (7) Bilateral shoulder pain: Code(s): M25.511 - Pain in right shoulder; M25.512 - Pain in left shoulder Category: Medical Qualifiers: Chronicity: unspecified Qualified Code(s): M25.511 - Pain in right shoulder; M25.512 - Pain in left shoulder Plan: Will send patient for x-rays of both shoulders for further evaluation (8) Low back pain: Code(s): M54.50 - Low back pain, unspecified Category: Medical Qualifiers: Chronicity: unspecified Back pain laterality: left Sciatica presence: without sciatica Qualified Code(s): M54.50 - Low back pain, unspecified Plan: Reinforced activity and weightlifting restrictions to avoid aggravating his low back pain Will send him for x-rays of the lumbar spine for further evaluation (9) Impaired fasting glucose: Code(s): R73.01 - Impaired fasting glucose Category: Medical Plan: Patient's FBS was slightly elevated on his recent labs Reinforced low calorie diet Will have patient recheck his FBS in a few months for follow-up; we will also check his HgbA1c in 4 months for further evaluation (10) Allergic rhinitis: Code(s): J30.9 - Allergic rhinitis, unspecified Category: Medical Qualifiers: Allergic rhinitis trigger: unspecified Allergic rhinitis seasonality: unspecified Qualified Code(s): J30.9 - Allergic rhinitis, unspecified Plan: Continue Fluticasone 50 mcg nasal spray QD PRN (11) BPH (benign prostatic hyperplasia): Code(s): N40.0 - Benign prostatic hyperplasia without lower urinary tract symptoms Category: Medical Qualifiers: Lower urinary tract symptom presence: symptoms present Lower urinary tract symptom detail: weak urinary stream Qualified Code(s): N40.1 - Benign prostatic hyperplasia with lower urinary tract symptoms; R39.12 - Poor urinary stream Plan: Continue Tamsulosin 0.4 mg Q HS Follow up with urology as scheduled (12) Erectile dysfunction: Code(s): N52.9 - Male erectile dysfunction, unspecified Category: Medical Qualifiers: Erectile dysfunction type: unspecified Qualified Code(s): N52.9 - Male erectile dysfunction, unspecified Plan: Continue Sildenafil 100 mg PRN (13) Obesity (BMI 30-39.9): Code(s): E66.9 - Obesity, unspecified Category: Medical Plan: Reinforce diet/exercise as tolerated/lose weight Plan Follow up in 4 months Orders: Orders Hemoglobin A1c 4 Months E11.9 - Type 2 diabetes mellitus without complications, M25.50 - Pain in unspecified joint TSH reflex Free T4 4 Months E78.00 - Pure hypercholesterolemia, unspecified, M25.50 - Pain in unspecified joint Vitamin D 25-OH Total 4 Months E55.9 - Vitamin D deficiency, unspecified, M25.50 - Pain in unspecified joint Vitamin B12 and Folate 4 Months E53.8 - Deficiency of other specified B group vitamins, M25.50 - Pain in unspecified joint C Reactive Protein 4 Months M25.50 - Pain in unspecified joint Erythrocyte Sedimentation Rate 4 Months M25.50 - Pain in unspecified joint, M79.7 - Fibromyalgia XR shoulder RT min 2V 04/02/25 M25.511 - Pain in right shoulder XR lumbar spine 2-3V 25 M54.50 - Low back pain, unspecified Complete Blood Count Auto Diff 4 Months D64.9 - Anemia, unspecified, M25.50 - Pain in unspecified joint Comprehensive [place]. Panel Fast 4 Months E78.00 - Pure hypercholesterolemia, unspecified, M25.50 - Pain in unspecified joint Lipid Panel 4 Months E78.00 - Pure hypercholesterolemia, unspecified, M25.50 - Pain in unspecified joint UA CC w/rflx Micro + Cult 4 Months M25.50 - Pain in unspecified joint, R30.0 - Dysuria Medications: New rosuvastatin 5 mg PO DAILY 90 tabs 1RF 90 days
== END 2025-04-01 17:21 | disposition home or self-care (01) ==
LOC: HO.HMCH 16:21
PROVIDERS: PCP Internal Medicine; Visit Provider Internal Medicine
DX: I25.10 Atherosclerotic heart disease of native coronary artery without angina pectoris (principal); J44.9 Chronic obstructive pulmonary disease, unspecified; E78.2 Mixed hyperlipidemia; I10 Essential (primary) hypertension; G47.33 Obstructive sleep apnea (adult) (pediatric); K21.9 Gastro-esophageal reflux disease without esophagitis; M25.511 Pain in right shoulder; M25.512 Pain in left shoulder; M54.50 Low back pain, unspecified; R73.01 Impaired fasting glucose; J30.9 Allergic rhinitis, unspecified; N40.1 Benign prostatic hyperplasia with lower urinary tract symptoms

== ENCOUNTER → 2025-04-01 16:21 | Outpatient (BNVA) | payer MEDICARE, SELFPAY | PROVIDERS: PCP Internal Medicine; Visit Provider Internal Medicine | DX: M25.511 Pain in right shoulder (principal); M54.50 Low back pain, unspecified; I25.10 Atherosclerotic heart disease of native coronary artery without angina pectoris; E78.2 Mixed hyperlipidemia; I10 Essential (primary) hypertension; J44.9 Chronic obstructive pulmonary disease, unspecified; G47.33 Obstructive sleep apnea (adult) (pediatric); K21.9 Gastro-esophageal reflux disease without esophagitis; M25.512 Pain in left shoulder; R73.01 Impaired fasting glucose; J30.9 Allergic rhinitis, unspecified; N40.1 Benign prostatic hyperplasia with lower urinary tract symptoms; R39.12 Poor urinary stream; N52.9 Male erectile dysfunction, unspecified; E66.9 Obesity, unspecified; Z68.31 Body mass index [BMI] 31.0-31.9, adult | CPT/HCPCS: 96127; 99212 ==

== ENCOUNTER 2025-04-02 08:21 | Outpatient (REF) | payer MEDICARE, SELFPAY ==
--- NOTE | ~2025-04-02 | XR_ITS ---
EXAMINATION: Bilateral shoulders 3 views each. CLINICAL INDICATION: Pain in left shoulder. COMPARISON: Left shoulder 01/25/2013. FINDINGS: LEFT SHOULDER: There are 2 anchors along the left humeral neck likely from rotator cuff surgery. The glenohumeral joint space is minimally reduced. No loose bodies, acute fracture or dislocation seen. AC joint is normal. The soft tissues are normal. RIGHT SHOULDER: Mild reduction in the right glenohumeral and AC joint space. There is periarticular spurring or old fracture fragment along the lateral clavicle at the AC joint. The soft tissues are normal. XR/XR Shoulder Reji min 2V IMPRESSION: 2 anchors along the left femoral neck from rotator cuff's surgery, new since the last exam 01/25/2013. There is mild degenerative changes bilateral glenohumeral and right AC joint. There is a small bone fragment adjacent to lateral clavicle at the AC joint likely old injury. Soft tissues are normal. Electronically signed by: Darnell Solomon MD 04/04/2025 09:42 AM EDT
--- NOTE | ~2025-04-02 | XR_ITS ---
EXAMINATION: XR LUMBOSACRAL SPINE CLINICAL INFORMATION: M54.50 - Low back pain, unspecified COMPARISON: None available. TECHNIQUE: Three views of the lumbosacral spine. FINDINGS: There is maintained lumbar lordosis. The vertebral heights and alignment is normal. There is loss of L2-3, L3-4, L4-5 and L5-S1 disc heights. There is minimal dextroscoliosis with left and ventral bridging osteophyte at the L3-4 disc level no acute fracture, lytic or sclerotic process seen. The paravertebral soft tissues are normal. XR/XR lumbar spine 2-3V IMPRESSION: Mild dextroscoliosis. Degenerative disc changes L3-4 through L5-S1 disc levels with mild bridging osteophytes at the L3-4 disc level No acute fracture, lytic or sclerotic process seen Electronically signed by: Darnell Solomon MD 04/04/2025 07:39 AM EDT
== END 2025-04-02 08:22 | disposition home or self-care (01) ==
LOC: HO.XRAY 08:21
PROVIDERS: PCP Internal Medicine; Visit Provider Internal Medicine
DX: M54.50 Low back pain, unspecified (principal); M25.511 Pain in right shoulder; M25.512 Pain in left shoulder; Z98.890 Other specified postprocedural states
CPT/HCPCS: 72100; 73030

== ENCOUNTER → 2025-04-02 08:36 | Outpatient (BNV) | payer MEDICARE, SELFPAY | PROVIDERS: PCP Internal Medicine; Visit Provider Radiology Diagnostic Radiology | DX: M51.360 Other intervertebral disc degeneration, lumbar region with discogenic back pain only (principal); M25.519 Pain in unspecified shoulder | CPT/HCPCS: 72100; 73030 ==

== ENCOUNTER 2025-07-01 14:28 | Outpatient (AMB) | payer MEDICARE, SELFPAY ==
--- NOTE | 2025-07-01 14:35 | MHC.OFFVIS ---
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 Patient was seen by his PCP who referred to orthopedics, he sent a prescription for tramadol to take as needed for pain. Today patient reports arthritis in both shoulders, about 1-2 months ago he received a cortisone injection to his right shoulder at a walk in orthopedic office in [place]. His pain has improved in his right shoulder however he still feels like something is wrong. He complains of pain with ROM. He has mild pain in his left shoulder. No other treatment. Hx of left shoulder RTC repair about 3-4 years ago in [place]. 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 His left shoulder was recently injected and he continues to experience right shoulder pain. He has a history of left shoulder rotator cuff repair in the injection he had with his primary care was helpful. He continues to have ongoing right shoulder pain and significant weakness with reaching. He states it feels similar to how the left 1 was when he had a rotator cuff tear. [facility] Medical History (Updated 04/03/25 @ 04:30 by Hank Graves MD) Allergic rhinitis Obesity (BMI 30-39.9) Essential hypertension Mixed hyperlipidemia BMI 35.0-35.9,adult Basal cell carcinoma of skin Barretts esophagus Anemia Hiatal hernia GERD (gastroesophageal reflux disease) BPH (benign prostatic hyperplasia) COPD (chronic obstructive pulmonary disease) Sinus infection Hematoma of right lower leg Fall Eczema Weak urinary stream Nocturia Stenosis of left anterior descending (LAD) artery Atherosclerotic cardiovascular disease Chest discomfort Other and unspecified hyperlipidemia Hypertension URI (upper respiratory infection) Surgical History (Updated 07/01/25 @ 14:47 by MELISSA Knott) H/O shoulder surgery S/P LASIK surgery of both eyes History of colonoscopy Family History Mother Hypertension Diabetes Father Hypertension CAD (coronary artery disease) Brother No problems noted. Brother No problems noted. Brother No problems noted. Brother No problems noted. Sister No problems noted. Sister No problems noted. Sister No problems noted. Sister No problems noted. Son No problems noted. Son No problems noted. Daughter No problems noted. Social History Housing: House Alcohol intake: current Alcohol intake frequency: a few times a week Patient Tobacco Use Status: Former Tobacco user Tobacco use type: Cigarette e-Cigarette/Vaping Use: Never Used Second Hand Smoke Exposure: No service: No Current occupational status: employed Cognitive needs: No Hearing needs: Yes (hearing aide) Vision needs: Yes (glasses) Review of Systems Const All systems reviewed & are unremarkable except as noted in HPI and below Physical Exam Vital Signs: BMI result Body Mass Index 31.5 Const General: cooperative and no acute distress Orientation/consciousness: patient oriented x3 Resp Effort & Inspection: normal respiratory effort and able to speak in complete sentences Cardio Peripheral pulses: Peripheral pulses 2+ throughout Neuro General: patient oriented x3 Extrem Other: Right shoulder normal to inspection he has full range of motion in all planes but limitations with internal rotation. Significant discomfort and weakness with rotator cuff strength testing. Neurovascularly intact. Results Reviewed Results Reviewed: XR Shoulder Reji min 2V IMPRESSION: 2 anchors along the left femoral neck from rotator cuff's surgery, new since the last exam 01/25/2013. There is mild degenerative changes bilateral glenohumeral and right AC joint. There is a small bone fragment adjacent to lateral clavicle at the AC joint likely old injury. Soft tissues are normal. Assessment & Plan Assessment & Plan (1) Bilateral shoulder pain: Code(s): M25.511 - Pain in right shoulder; M25.512 - Pain in left shoulder Category: Medical Qualifiers: Chronicity: unspecified Qualified Code(s): M25.511 - Pain in right shoulder; M25.512 - Pain in left shoulder Plan: An MRI of the right shoulder has been ordered to further evaluate the integrity of his rotator cuff. Once the scan is complete I will contact him to discuss the results and discuss further treatment options. Orders: Orders MR shoulder RT wo con 07/01/25 M77.8 - Other enthesopathies, not elsewhere classified Coding Level of Care Code New Pt Level 3 (93091) Complex EM visit Add On G2211 Diagnoses Bilateral shoulder pain, unspecified chronicity M25.511; M25.512 Chronicity: unspecified
[2025-07-01 14:48] VITALS: BMI 31.5
--- OUTSIDE RECORDS SUMMARY | 2025-07-01 15:24 | XMS_ITS | Clinical Summary ---
Author Organization [facility] Address [address] [place] [id number] Phone Care Team Providers Care Hydrodynamics Professor Name Role Phone Aren Vaughn MD Primary Care Provider [phone] Allergies Active Allergy Reactions Criticality Noted Date Comments Ciprofloxacin Swelling 07/12/2022 Medications atorvastatin (LIPITOR) 80 MG tablet Take 80 mg by mouth daily. 2 Active FLOVENT HFA 220 mcg/actuation inhaler Inhale 1 puff into the lungs 2 (two) times a day. 2 Active fluticasone propionate (FLONASE) 50 mcg/actuation nasal spray USE 1 SPRAY INTRANASALLY DAILY. 2 Active hydroCHLOROthia zide (HYDRODIURIL) 25 MG tablet Take 25 mg by mouth every morning. 2 Active lisinopril (PRINIVIL,ZESTR IL) 40 MG tablet Take 40 mg by mouth daily. 2 Active metoprolol succinate (TOPROL-XL) 25 MG 24 hr tablet Take 25 mg by mouth daily. 2 Active tamsulosin (FLOMAX) 0.4 mg Cap Take 0.4 mg by mouth nightly at bedtime. 2 Active SPIRIVA WITH HANDIHALER 18 mcg inhalation capsule INHALE CONTENTS OF 1 CAPSULE VIA HANDIHALER DAILY. 2 Active omeprazole (PRILOSEC) 10 MG capsule Take 10 mg by mouth daily. Active aspirin 81 MG EC tablet Take 81 mg by mouth daily. Every other day Active naproxen sodium (ALEVE) 220 MG tablet Take 220 mg by mouth. 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 Not on feng e 02/01/2023 Are you concerned about learning? Not on file 02/01/2023 No 02/01/2023 No 02/01/2023 Digital Access Answer Date Recorded No 02/25/2023 No 02/25/2023 No 02/25/2023 Reliable internet access at home? Not on file 02/25/2023 Device with a working camera? Not on file Sex and Gender Information Value Date Recorded Sex Assigned at Not on file Legal Sex Male 11:02 AM EDT Gender Identity Not on file Sexual Orientation Not on file Last Filed Vital Signs Vital Sign Reading Time Taken Comments Blood Pressure 177/88 11/01/2022 11:41 AM EST Pulse 58 11/01/2022 11:41 AM EST Temperature - - Respiratory Rate 14 11/01/2022 11:4 1 AM EST Oxygen Saturation 99% 11/01/2022 11: 41 AM EST Inhaled Oxygen Concentration - - Weight 95.2 kg (209 lb 12.8 oz) 07/12/2022 2:32 PM EDT Height 160 cm (5' 3 ) 07/12/2022 2:32 PM EDT Body Mass Index 37.16 07/12/2022 2:32 PM EDT Plan of Treatment Health Maintenance Due Date Last Done Comments CREATININE LEVEL 1958 LIPID PANEL 1958 POTASSIUM LEVEL 1958 DEPRESSION SCREENING 1970 SMOKING Hx and SMOKELESS TOBACCO SCREENING 1971 HEPATITIS C SCREENING 01/07/1976 SCREENING FOR DIABETES 1993 COLOGUARD 2003 COLONOSCOPY 2003 COLORECTAL CANCER SCREENING 2003 FIT TEST 2003 FOBT 2003 SIGMOIDOSCOPY 2003 VIRTUAL COLONOSCOPY 2003 ABDOMINAL AORTIC ANEURYSM (AAA) SCREENING 2023 INFLUENZA VACCINE (#1) 2025 2, 06/14/2021, 07/12/2020, Additional history exists COVID-19 VACCINE ( season) 2025 07/21/2022, 10/09/2021, 01/31/2021, Additional history exists Adult Td,Tdap Booster 08/18/2030 08/18/2020 , 03/25/2019, 10/06/2012 RSV VACCINE (1 - 1-dose 75+ series) 2033 ZOSTER VACCINES Completed 10/27/2020, 07/12/2020 PNEUMOCOCCAL VACCINES (50+ years) Completed 09/06/2022, 09/20/2020 HEPATITIS A VACCINES Aged Out No long er eligible based on patient's age to complete this topic HIB VACCINES Aged Out No longer eligi ble based on patient's age to complete this topic MENINGOCOCCAL VACCINES (ACWY) Aged Out No longer eligible based on patient's age to complete this topic MENINGOCOCCAL VACCINES (B) Aged Out N o longer eligible based on patient's age to complete this topic Medical Devices Not on file Insurance PCP [employer] NON NSPG PCP [employer] [facility] NON NSPG PCP [employer] COMM[employer]CIAL [facility] NON NSPG PCP [employer]CIAL [employer] NON NSPG PCP [employer] [facility] NON NSPG PCP [employer] NON NSPG PCP [employer] NON NSPG PCP [employer] NON NSPG PCP [employer] Care Teams Hydrodynamics Professor Relationship Specialty Start Date End Date Aren Vaughn MD [address] [place] [id number] PCP - General Internal Medicine 07/11/22 Additional Source Comments The information contained in this document represents components of the legal health record. It is not the complete legal health record.[facility]
--- OUTSIDE RECORDS SUMMARY | 2025-07-01 15:24 | XMS_ITS | Encounter Summary ---
Author Organization [facility] Address [address] [place] [phone] Phone Care Team Providers Care Canopy Inspector Name Role Phone Aren Vaughn MD Primary Care Provider [phone] Encounter Details Date Type Department Care Team (Late st Contact Info) Description 11/01/2022 Procedure Pass OR Admitting Dept - Virtual Department [address] [place] [address] Social History Tobacco Use Types Packs/Day Years Used Date Smoking Tobacco: Former Smokeless Tobacco: Never Alcohol Use Standard Drinks/Week Comments Yes 0 (1 standard drink = 0.6 oz pur e alcohol) 1 daily Sex and Gender Information Value Date Recorded Sex Assigned at Not on file Legal Sex Male 11:02 AM EDT Gender Identity Not on file Sexual Orientation Not on file documented as of this encounter Plan of Treatment Not on file documented as of this encounter Visit Diagnoses Not on filedocumented in this encounter Care Teams Canopy Inspector Relationship Specialty Start Date End Date Aren Vaughn MD [address] [place] [address] [place] [address] PCP - General Internal Medicine 07/11/22 documented as of this encounter Additional Source Comments The information contained in this document represents components of the legal health record. It is not the complete legal health record.[facility]
== END 2025-07-01 16:02 | disposition home or self-care (01) ==
LOC: HO.HOS 14:29
PROVIDERS: PCP Internal Medicine; Visit Provider Physician Assistant
DX: M25.511 Pain in right shoulder (principal); M25.512 Pain in left shoulder
CPT/HCPCS: 99203; G2211

== ENCOUNTER → 2025-07-01 14:28 | Outpatient (BNVA) | payer MEDICARE, SELFPAY | PROVIDERS: PCP Internal Medicine; Visit Provider Physician Assistant | DX: M25.511 Pain in right shoulder (principal); M25.512 Pain in left shoulder | CPT/HCPCS: 99202 ==

== ENCOUNTER 2025-07-26 15:40 | Outpatient (AMB) | payer MEDICARE, SELFPAY ==
--- NOTE | 2025-07-26 15:47 | A.OFFVIS_ITS ---
Intake Visit Reasons: 1 YR FOLLOW UP Intake Note: Patient is Present for:1yr follow up Urology Medication: Tamsulosin Blood Thinners: Aspirin today's PVR: 13mls Battery Test Engineer Required: No Accompanied by: Self / Same As Patient Allergies ciprofloxacin (From Cipro) Allergy (Mild, Verified 07/26/25 15:59) SWELLING, anaphylaxis atorvastatin Adverse Reaction (Intermediate, Verified 07/26/25 15:59) dizziness, lightheadedness simvastatin Adverse Reaction (Intermediate, Verified 07/26/25 15:59) dizziness, lightheadedness HPI Comments Details: Donnell BALTAZAR is a very pleasant male. He is a patient of Dr Coley. He is seen the following urologic conditions. - lower urinary tract symptoms - erectile dysfunction Continued good emptying on Flomax Uses every other day May slowly increase to every day Does have sildenafil for erections - may use up to 200mg Is effective Discussed low PSA. Does not need further PSA testing. Lower Urinary Tract Symptoms: Current visit is for further evaluation of, lower urinary tract symptoms, predominate obstructive symptoms - flomax is still working for him Current treatment includes medication, tamsulosin Prostate Symptom Score 3/19 , Moderate (9-19), Bother 2. Symptoms include / , weak stream, intermittency, nocturia (>2), and are improving 07/24 and are improving. PSA 07/24 0.9, 05/25 0.7, 08/27 0.7, 06/29 0.8 Prostate volume 50+gm. Testing at next visit will include bladder scan Treatment plan - review in 12 month [facility] Medical History (Updated 04/03/25 @ 04:30 by Hank Graves MD) Allergic rhinitis Obesity (BMI 30-39.9) Essential hypertension Mixed hyperlipidemia BMI 35.0-35.9,adult Basal cell carcinoma of skin Barretts esophagus Anemia Hiatal hernia GERD (gastroesophageal reflux disease) BPH (benign prostatic hyperplasia) COPD (chronic obstructive pulmonary disease) Sinus infection Hematoma of right lower leg Fall Eczema Weak urinary stream Nocturia Stenosis of left anterior descending (LAD) artery Atherosclerotic cardiovascular disease Chest discomfort Other and unspecified hyperlipidemia Hypertension URI (upper respiratory infection) Surgical History (Updated 07/01/25 @ 14:47 by MELISSA Knott) H/O shoulder surgery S/P LASIK surgery of both eyes History of colonoscopy Family History Mother Hypertension Diabetes Father Hypertension CAD (coronary artery disease) Brother No problems noted. Brother No problems noted. Brother No problems noted. Brother No problems noted. Sister No problems noted. Sister No problems noted. Sister No problems noted. Sister No problems noted. Son No problems noted. Son No problems noted. Daughter No problems noted. Social History Housing: House Alcohol intake: current Alcohol intake frequency: a few times a week Patient Tobacco Use Status: Former Tobacco user Tobacco use type: Cigarette e-Cigarette/Vaping Use: Never Used Second Hand Smoke Exposure: No service: No Current occupational status: employed Cognitive needs: No Hearing needs: Yes (hearing aide) Vision needs: Yes (glasses) Office Procedures Post Void Residual Post Residual Void Post Void Residual (PVR): 13 [id number] Void Residual by ultrasound Results AMB Urinalysis, Automated UA Leukoctes 0 Kezia/uL Last Edit by MELANIE Michael on 07/26/25 16:42 UA Nitrite Last Edit by MELANIE Michael on 07/26/25 16:42 UA Urobilinogen 0.2 mg/dL Last Edit by MELANIE Michael on 07/26/25 16:4 2 UA Protein 0 mg/dL Last Edit by MELANIE Michael on 07/26/25 16:42 UA pH 6.0 Last Edit by MELANIE Michael on 07/26/25 16:42 UA Blood 0 León/uL Last Edit by MELANIE Michael on 07/26/25 16:42 UA Specific [place] 1.010 Last Edit by MELANIE Michael on 07/26/25 16: 42 UA Ketone Last Edit by MELANIE Michael on 07/26/25 16:42 UA Bilirubin 0 mg/dL Last Edit by MELANIE Michael on 07/26/25 16:42 UA Glucose 0 mg/dL Last Edit by MELANIE Michael on 07/26/25 16:42 Assessment & Plan Assessment & Plan Orders: Orders AMB Post Void Residual by ultrasound Today N40.1 - Benign prostatic hyperplasia with lower urinary tract symptoms, R39.12 - Poor urinary stream AMB Urinalysis Automated Today Z13.9 - Encounter for screening, unspecified Coding CPT Codes Post Residual Void - PVR CPT Code: 20500-[id number] Void Residual by ultrasound ([id number])
--- OUTSIDE RECORDS SUMMARY | 2025-07-26 20:42 | XMS_ITS | Clinical Summary ---
Author Organization [facility] Address [address] [place] [id number] Phone Care Team Providers Care Retail Wireless Sales Consultant Name Role Phone Aren Vaughn MD Primary Care Provider [phone] Allergies Active Allergy Reactions Criticality Noted Date [...] TOBACCO SCREENING 1971 HEPATITIS C SCREENING 01/07/1976 COLOGUARD 2003 COLONOSCOPY 2003 COLORECTAL CANCER SCREENING [...] topic Medical Devices Not on file Insurance NSPG PCP CLARITY COMMERCIAL [place] NON NSPG PCP [employer]ITY COMMERCIAL [place] NON NSPG PCP [employer] COMMERCIAL [place] NON NSPG PCP CLARITY COMMERCIAL [place] NON NSPG PCP CLARITY COMMERCIAL [facility] NON NSPG PCP CLARITY COMMERCIAL [place] NON NSPG PCP CLARITY COMMERCIAL [place] NON NSPG PCP CLARITY COMMERCIAL [facility] NON NSPG PCP CLARITY COMMERCIAL Care Teams Retail Wireless Sales Consultant Relationship Specialty Start Date End Date Aren Vaughn MD [address] [place] [id number] PCP - General Internal Medicine 07/11/22 Additional Source Comments The information contained in this document represents components of the legal health record. It is not the complete legal health record.[facility]
--- OUTSIDE RECORDS SUMMARY | 2025-07-26 20:42 | XMS_ITS | Encounter Summary ---
Author Organization [facility] Address [address] [place] [id number] Phone Care Team Providers Care Electrode Cleaner Name Role Phone Aren Vaughn MD Primary Care Provider [phone] Encounter Details Date Type Department Care Team (Late st Contact Info) Description 11/01/2022 Procedure Pass [place] Admitting Dept - Virtual Department [address] [place] [address] Social History Tobacco Use Types Packs/Day Years [...] on filedocumented in this encounter Care Teams Electrode Cleaner Relationship Specialty Start Date End Date Aren Vaughn MD [address] [place] [address] [place] [id number] PCP - General Internal Medicine 07/11/22 documented as of this encounter Additional Source Comments The information contained in this document represents components of the legal health record. It is not the complete legal health record.[facility]
--- OUTSIDE RECORDS SUMMARY | 2025-07-26 20:42 | XMS_ITS | Data Portability ---
Author Organization [facility], [address] Address [address] [place] [address] Assessment No assessment recorded. Plan of Treatment Reminders Order Date Submit Date Provider Last Modified By Organization Details Last Modified Time Details Appointments None recorded. Lab rapid SARS CoV 2 Ag, QL IA, respiratory specimen [email or web address] [facility], [address] [place] [address], [address], 3 16:53:56 rapid flu (A+B) 2022 023 [email or web address] [facility]995[facility], [address] [place] [address], [address], 3 16:53:56 Referral None recorded. Procedures None recorded. Surgeries None recorded. Imaging None recorded. Medication Orders albuterol sulfate HFA 90 mcg/actuati on aerosol inhaler 2022 023 [facility], [address] [place], [address], 3 16:53:58 prednisone 20 mg tablet 2022 023 [facility], [address] [place], [address], 3 16:54:00 azithromyci n 250 mg tablet 2022 023 [facility], [address] [place], [address], 16:54:00 Tessalsameera Perles 100 mg capsule 2022 023 [facility], [address] [facility], [place], [address], 16:53:59 Patient TargetsNo targets recorded. Patient Instructions Encounter Date Encounter Id Patient Instructions Last Modified By Organization Details Last Modified Time 11/01/2022 [id number] cough: care instructions [email or web address] Not available 11/01/2022 16:53:57 Reason for Referral None Reported. Results Created Date Observation Date Name Description Value Unit Range Abnormal Flag Note LastModifiedBy Organization Detail LastModifiedTime 11/01/1911/01/2022 rapid SARS CoV 2 Ag, QL IA, respi rator y speci men Unknown Analyte Normal =Negat petty Not Available [address], [address], 11/01/2022 16:16:20 11/01/19 23 11/01/2022 rapid SARS CoV 2 Ag, QL IA, respi rator y speci men Unknown Analyte negati ve Not Available [address] [place] [address], [address], 11/01/2022 16:16:20 11/01/19 23 11/01/2022 rapid flu (A+B) Unknown Analyte Normal = Negati ve Not Available [address] [place] [address], [address], 11/01/2022 16:16:32 11/01/19 23 11/01/2022 rapid flu (A+B) Unknown Analyte Normal = Negati ve Not Available [address] [place] [address], [address], 11/01/2022 16:16:32 11/01/19 23 11/01/2022 rapid flu (A+B) Unknown Analyte negati ve Not Available [facility] [address] [place], [address], 11/01/2022 16:16:32 11/01/19 23 11/01/2022 rapid flu (A+B) Unknown Analyte negati ve Not Available [facility] [address] [place], [address], 11/01/2022 16:16:32 Result Notes None recorded. Problems Name Problem SNOMED Code Status Onset Date Resolution Date Notes Provider Name and Address Organization Details Recorded Time Hypertensive disorder 86618163 Active 2022 Carmella Denise null, PA - [facility] 3 16:14:49 Hyperlipidemia 90510508 Active 2022 Carmella Denise null, PA - [facility] 3 16:15:05 Hernia of abdominal cavity 22832209 Active 2022 Carmella Denise null, PA - [facility] 3 16:15:22 Asthma 680132866 Active 2022 Carmella Denise null, PA - [facility] 3 16:15:35 Problem Notes None recorded. Medical Equipment None Reported. Allergies Allergen ID Allergen Name Allergen Category Reaction Reaction Severity Criticality Documentation Date Start Date Code Code System Note Provider Name and Address Organization Details Recorded Time 303433 ciproflox acin medicatio n angioedem a Not available high 11/01/2022 2551 RxNorm Carmella Hubbard null, PA - [facility] 3 16:12:29 [...] saturation in Arterial blood by Pulse oximetry Pain severity - 0-10 verbal numeric rating [Score] - Reported Heart rate Respiratory rate Body temperature Systolic And Diastolic Provider Name and Address Organization Details Last Updated DateTime 3 167.64 cm 33.1 kg/m2 42095.4 4 g 97 % 97 % 0 56 /min 20 /min 98 [degF] 166/90 mm[Hg] Carmella Walker PA - [facility] 3 16:19:11 Social History Question Answer Notes LastModified by [employer] Details LastModified Time Tobacco Smoking Status Never Smoker Carmella pozo PA - [facility] 11/01/2022 16:15:51 Have You Had Direct Contact, Or Contact During Intimacy, With Monkeypox Rash, Scabs, Or Body Fluids From A Person With Monkeypox? No Information not available 11/01/2022 Have You Recently Traveled Abroad? No Information not available 11/01/2022 Sex: Unknown Functional Status Question Answer Note LastModified by [employer] Details LastModified Time How many times per [...] split virus, quadrivalent, preservative 9 completed Carmella pozo PA - [facility] 11/01/2022 16:12:18 Influenza, split virus, quadrivalent, preservative 8 completed Carmella Denise null, PA - [facility] 11/01/2022 16:12:18 Influenza, MDCK, quadrivalent, PF 1 completed Carmella Hubbard null, PA - [facility] 11/01/2022 16:12:18 Influenza, MDCK, quadrivalent, PF 8 completed Carmella Denise null, PA - [facility] 11/01/2022 16:12:18 Influenza, MDCK, quadrivalent, PF 0 completed Carmella Denise null, PA - [facility] 11/01/2022 16:12:18 Influenza, MDCK, quadrivalent, PF 2 completed Carmella Hubbard null, PA - [facility] 11/01/2022 16:12:18 Influenza, MDCK, quadrivalent, PF 7 completed Carmella Denise null, PA - [facility] 11/01/2022 16:12:18 zoster recombinant 1 completed Carmella Hubbard null, PA - [facility] 11/01/2022 16:12:18 zoster recombinant 0 completed Carmella Hubbard null, PA - [facility] 11/01/2022 16:12:18 COVID-19, mRNA, LNP-S, PF, 30 mcg/0.3 mL dose 2 completed Carmella Hubbard null, PA - [facility] 11/01/2022 16:12:18 COVID-19, mRNA, LNP-S, PF, 30 mcg/0.3 mL dose 1 completed Carmella Hubbard null, PA - [facility] 11/01/2022 16:12:18 COVID-19, mRNA, LNP-S, PF, 30 mcg/0.3 mL dose 1 completed Carmella Hubbard null, PA - [facility] 11/01/2022 16:12:18 Pneumococcal conjugate PCV20, polysaccharide [id number] conjugate, adjuvant, PF 2 completed Carmella Denise null, PA - [facility] 11/01/2022 16:12:18 COVID-19, mRNA, LNP-S, bivalent, PF, 30 mcg/0.3 mL dose 2 completed Carmella Denise null, PA - [facility] 11/01/2022 16:12:18 pneumococcal polysaccharide PPV23 0 completed Carmella Hubbard null, PA - [facility] 11/01/2022 16:12:18 Tdap 3 completed Carmella Hubbard null, PA - [facility] 11/01/2022 16:12:18 Tdap 9 completed Carmella Hubbard null, PA - [facility] 11/01/2022 16:12:18 Tdap 0 completed Carmella Hubbard null, PA - [facility] 11/01/2022 16:12:18 Influenza, high-dose, trivalent, PF 9 completed Carmella Hubbard null, PA - [facility] 11/01/2022 16:12:18 Influenza, split virus, trivalent, preservative 6 completed Carmella Denise null, PA - [facility] 11/01/2022 16:12:18 Past Encounters Encounter ID Performer Location Encounter Start Date Encounter Closed Date Diagnosis/Indication Diagnosis SNOMED-CT Code Diagnosis ICD10 Code Diagnosis IMO Codes Diagnosis Note [id number] Lavell Lynne [address] [address] [address] 11/01/2022 14:58:42 11/01/2022 17:00:28 Cough 56028420 R05.9 Given Hx and Sx will Rx [...] Broderick Member ID Guarantor Name 11/01/2022 1 [facility] (O) [id number] Donnell F Jossy [id number] 0 Donnell Fenton Notes Date Note Type Note Provider Name and Address Organization Details Recorded Time 11/01/2022 text/html CoughReported by [id number] yo malec/o congestion, headache, cough since last Friday.Taking mucinex at home.Coughing up green/yellow phlegm.+ asthmanon smoker No feverNo chillsNo difficulty breathing or respiratory distressNo CPNo ear painNo sore throatNo Abdominal painNo nauseaNo vomitingNp diarrheaNo myalgiaNo fatigueNo rashNo HANo dizzinessNo recent travelNo known sick contactsROS as noted in the HPI Lavell Lynne DO [address] [place], [address], PA - [facility] 11/01/2022 17:00:04
== END 2025-07-26 16:43 | disposition left against medical advice (07) ==
LOC: HO.HUSH 15:41
PROVIDERS: PCP Internal Medicine; Visit Provider Urology
DX: Z13.9 Encounter for screening, unspecified (principal)

== ENCOUNTER → 2025-07-26 15:40 | Outpatient (BNVA) | payer MEDICARE, SELFPAY | PROVIDERS: PCP Internal Medicine; Visit Provider Urology | DX: N40.1 Benign prostatic hyperplasia with lower urinary tract symptoms (principal); R39.12 Poor urinary stream; N52.9 Male erectile dysfunction, unspecified; I25.10 Atherosclerotic heart disease of native coronary artery without angina pectoris; E78.5 Hyperlipidemia, unspecified; I10 Essential (primary) hypertension; R73.01 Impaired fasting glucose; J44.9 Chronic obstructive pulmonary disease, unspecified; G47.33 Obstructive sleep apnea (adult) (pediatric); K21.9 Gastro-esophageal reflux disease without esophagitis; M25.511 Pain in right shoulder; M25.512 Pain in left shoulder; M54.50 Low back pain, unspecified; J30.9 Allergic rhinitis, unspecified; E66.3 Overweight; Z68.29 Body mass index [BMI] 29.0-29.9, adult; N32.0 Bladder-neck obstruction; R35.1 Nocturia; Z79.899 Other long term (current) drug therapy | CPT/HCPCS: 51798; 81003; 99212 ==

== ENCOUNTER 2025-07-26 16:41 | Outpatient (AMB) | payer MEDICARE, SELFPAY ==
[2025-07-26 16:52] VITALS: BP 158/80; PULSE 50; RESP 18; TEMP 36.2; O2SAT 95; BMI 29.0
--- NOTE | 2025-07-26 16:52 | A.OFFPC_ITS ---
Vital Signs 07/26/25 16:52 Height 5 ft 7 in Weight 185 lb 4 oz BMI 29.0 BP 158/80 H Blood Pressure Location Lt brachial Position Sitting Respiration 18 Pulse 50 Pulse Source Pulse Oximeter Temp 97.1 F Temp Source Temporal Artery Scan Pulse Oximetry (%) 95 Oxygen Delivery Method Room Air Intake Visit Reasons: hyperlipidemia, OA, HTN, HARMAN Radio Operator Ground Required: No Accompanied by: Self / Same As Patient Allergies ciprofloxacin (From Cipro) Allergy (Mild, Verified 07/26/25 17:08) SWELLING, anaphylaxis atorvastatin Adverse Reaction (Intermediate, Verified 07/26/25 17:08) dizziness, lightheadedness simvastatin Adverse Reaction (Intermediate, Verified 07/26/25 17:08) dizziness, lightheadedness Medication List - Last Reconciled 07/26/25 by Hank Graves MD albuterol sulfate 90 mcg/actuation (Ventolin HFA) 1 inh inhalation QID PRN aspirin (Adult Low Dose Aspirin) 81 mg PO DAILY hydrochlorothiazide 25 mg PO QAM lisinopril 40 mg PO DAILY metoprolol succinate ER 25 mg PO DAILY omeprazole 20 mg PO BID 30 days rosuvastatin 5 mg PO DAILY 90 days tamsulosin 0.4 mg PO BEDTIME 90 days Tobacco use date assessed: 07/26/25 Fall risk assessment: No Falls in past year Last assessed Fall Risk: 07/26/25 Dental Screening Dental Screen Date: 07/26/25 Did you have a dental visit in the last 12 months?: Yes Did you have a dental problem in the last 6 months where you did not have access to dental care?: No Was dental information given to patient?: Patient has dentist HPI hyperlipidemia, OA, HTN, HARMAN HPI Details Patient comes in today for his follow up visit States that he feels okay Relates that his shoulder pains have improved a lot with cortisone injections that he received from orthopedics recently He is also currently taking some Celebrex PRN, Turmeric and also eating a lot of beets and states that his joint pains have improved a lot lately He has also lost a lot of weight since his last visit, mostly with diet and exercise and guidance from weight management States that he is not taking any medication or prescription for weight loss He denies any headaches or dizziness Denies any chest pains, no increased SOB No nausea/vomiting, no abdominal pain No change in bowel habits noted He denies any acute urinary symptoms He was not able to get his follow up labs done prior to coming in for his appointment today [facility] Medical History (Updated 08/02/25 @ 23:08 by Hank Grvaes MD) Overweight (BMI 25.0-29.9) Allergic rhinitis Obesity (BMI 30-39.9) Essential hypertension Mixed hyperlipidemia BMI 35.0-35.9,adult Basal cell carcinoma of skin Barretts esophagus Anemia Hiatal hernia GERD (gastroesophageal reflux disease) BPH (benign prostatic hyperplasia) COPD (chronic obstructive pulmonary disease) Hematoma of right lower leg Eczema Weak urinary stream Nocturia Stenosis of left anterior descending (LAD) artery Atherosclerotic cardiovascular disease Surgical History H/O shoulder surgery S/P LASIK surgery of both eyes History of colonoscopy Family History Mother Hypertension Diabetes Father Hypertension CAD (coronary artery disease) Brother No problems noted. Brother No problems noted. Brother No problems noted. Brother No problems noted. Sister No problems noted. Sister No problems noted. Sister No problems noted. Sister No problems noted. Son No problems noted. Son No problems noted. Daughter No problems noted. Social History Housing: House Alcohol intake: current Alcohol intake frequency: a few times a week Patient Tobacco Use Status: Former Tobacco user Tobacco use type: Cigarette e-Cigarette/Vaping Use: Never Used Second Hand Smoke Exposure: No service: No Current occupational status: employed Cognitive needs: No Hearing needs: Yes (hearing aide) Vision needs: Yes (glasses) Questionnaire Thrive Questionnaire Date Thrive assessed: 03/25/25 DAV-7 AMB Questionnaire DAV-7 Date DAV - 7 assessed: 04/01/25 Source: Developed by Drs. Myron Coleman, Izabella Brnener, Jeffry Martin and colleagues, with an educational violette from [employer]. Review of Systems Const Denies chills, Reports fatigue, Denies fever(s) and Denies headache(s) ENT Denies dysphagia, Denies dizziness, Denies otalgia, Denies headache(s), Reports hearing loss (has hearing aids but has a hard time using them), Denies neck pain, Denies odynophagia and Denies sore throat Card Denies chest pain, Denies palpitations and Denies dyspnea Resp Denies chest congestion, Denies cough and Denies dyspnea GI Denies abdominal pain, Denies constipation, Denies dysphagia, Denies heartburn, Denies diarrhea, Denies nausea, Denies odynophagia and Denies vomiting Denies difficulty urinating, Denies dysuria, Denies nocturia and Denies urinary frequency Musc Reports back pain (improved since his last visit), Denies arthralgias (right shoulder pain improved with cortisone injection recently) and Denies neck pain Skin/Breast Denies rash Neuro Denies dizziness and Denies headache(s) Psych Denies anxiety and Denies depression Endo Reports fatigue and Denies palpitations Physical exam (Primary Care) Vital Signs: Last Vital Signs Temp 97.1 F 07/26/25 16:52 Pulse 50 07/26/25 16:52 Resp 18 07/26/25 16:52 BP 158/80 H 07/26/25 16:52 Pulse Ox 95 07/26/25 16:52 Oxygen Delivery Method Room Air 07/26/25 16:52 BMI result Body Mass Index 29.0 Tobacco/Smoking Status: Tobacco use Status Tobacco use date assessed 07/26/25 07/26/25 16:58 Patient Tobacco Use Status Former Tobacco user 07/26/25 16:58 Tobacco use type Cigarette 07/26/25 16:58 e-Cigarette/Vaping Use Never Used 07/26/25 16:58 Thrive Assessment: Date of Thrive Assessment Date Thrive assessed 03/25/25 07/26/25 16:58 Const General: no acute distress and alert HENMT Ears: TM's normal bilaterally and EAC's normal Throat: Yes posterior oropharynx normal and Yes tonsils normal (no TP congestion) Neck Neck: Yes supple and No lymphadenopathy Thyroid: Thyroid normal Resp Auscultation: clear to auscultation bilaterally, no rales and no wheezes Cardio Rate: regular rate Rhythm: regular rhythm Heart sounds: no murmurs GI Palpation (GI): Soft to palpation and nontender Auscultation: normal bowel sounds General: Yes no CVA tenderness Back/Spine/Pelvis Back: no CVA tenderness Thoracic/Lumbar Spine: lumbar spinal tenderness (mild) Skin Rashes: no rashes Extrem General: Yes no clubbing, cyanosis or edema Results AMB Urinalysis, Automated UA Leukoctes 0 Kezia/uL Last Edit by MELANIE Michael on 07/26/25 16:42 UA Nitrite Last Edit by MELANIE Michael on 07/26/25 16:42 UA Urobilinogen 0.2 mg/dL Last Edit by MELANIE Michael on 07/26/25 16:4 2 UA Protein 0 mg/dL Last Edit by MELANIE Michael on 07/26/25 16:42 UA pH 6.0 Last Edit by MELANIE Michael on 07/26/25 16:42 UA Blood 0 León/uL Last Edit by MELANIE Michael on 07/26/25 16:42 UA Specific Stella 1.010 Last Edit by MELANIE Michael on 07/26/25 16: 42 UA Ketone Last Edit by MELANIE Michael on 07/26/25 16:42 UA Bilirubin 0 mg/dL Last Edit by MELANIE Michael on 07/26/25 16:42 UA Glucose 0 mg/dL Last Edit by MELANIE Michael on 07/26/25 16:42 Coding Level of Care Code Est Pt Level 4 (98833) Diagnoses Atherosclerotic cardiovascular disease I25.10 Mixed hyperlipidemia E78.2 Essential hypertension I10 Impaired fasting glucose R73.01 Chronic obstructive pulmonary disease, unspecified COPD type J44.9 COPD type: unspecified COPD Obstructive sleep apnea G47.33 Chronic GERD K21.9 Bilateral shoulder pain, unspecified chronicity M25.511; M25.512 Chronicity: unspecified Left-sided low back pain without sciatica, unspecified chronicity M54.50 Chronicity: unspecified Back pain laterality: left Sciatica presence: without sciatica Allergic rhinitis, unspecified seasonality, unspecified trigger J30.9 Allergic rhinitis trigger: unspecified Allergic rhinitis seasonality: unspecified Benign prostatic hyperplasia with weak urinary stream N40.1; R39.12 Lower urinary tract symptom presence: symptoms present Lower urinary tract symptom detail: weak urinary stream Erectile dysfunction, unspecified erectile dysfunction type N52.9 Erectile dysfunction type: unspecified Overweight (BMI 25.0-29.9) E66.3 Assessment & Plan Assessment & Plan (1) Atherosclerotic cardiovascular disease: Code(s): I25.10 - Atherosclerotic heart disease of [place] coronary artery without angina pectoris Category: Medical Plan: Continue Metoprolol ER 25 mg QD and Aspirin 81 mg QD Follow up with cardiology as scheduled (2) Mixed hyperlipidemia: Code(s): E78.2 - Mixed hyperlipidemia Category: Medical Plan: Reinforced low cholesterol diet Patient was not able to get his follow up labs done prior to his appointment today Have reminded patient that his cholesterol levels have increased significantly from previous when they were last checked a few months ago so he should try to get them rechecked MARA Patient stopped taking his cholesterol medications a while ago due to side effects - reportedly experienced frequent lightheadedness and dizziness after taking Simvastatin and Atorvastatin in the past He was started on a trial of low-dose Rosuvastatin 5 mg QD at his last visit and he appears to be tolerating the Rx so far Will have patient recheck his labs and fasting lipids again in 4 months for follow-up (3) Essential hypertension: Code(s): I10 - Essential (primary) hypertension Category: Medical Plan: Reinforced low-sodium diet - goal systolic BP of 120 mm or less Continue Lisinopril 40 mg QD, Metoprolol ER 25 mg QD and HCTZ 25 mg Q AM Patient is reminded to continue monitoring his blood pressure regularly (4) Impaired fasting glucose: Code(s): R73.01 - Impaired fasting glucose Category: Medical Plan: Patient's FBS was slightly elevated on his previous labs Reinforced low calorie diet Will have patient recheck his FBS and HgbA1c MARA for follow-up (5) COPD (chronic obstructive pulmonary disease): Code(s): J44.9 - Chronic obstructive pulmonary disease, unspecified Category: Medical Qualifiers: COPD type: unspecified COPD Qualified Code(s): J44.9 - Chronic obstructive pulmonary disease, unspecified Plan: Controlled - continue Ipratropium bromide 17 mcg 1 inhalation QID and Albuterol HFA 1 to 2 inhalations Q 6 hours PRN (6) Obstructive sleep apnea: Code(s): G47.33 - Obstructive sleep apnea (adult) (pediatric) Category: Medical Plan: Patient reportedly underwent a sleep study at [facility] a couple of months ago in May 2025 - will try to obtain a copy of his sleep study report from [facility] MARA Follow-up with sleep medicine as scheduled (7) Chronic GERD: Code(s): K21.9 - Gastro-esophageal reflux disease without esophagitis Category: Medical Plan: Dietary restrictions reinforced Continue omeprazole 20 mg BID (8) Bilateral shoulder pain: Code(s): M25.511 - Pain in right shoulder; M25.512 - Pain in left shoulder Category: Medical Qualifiers: Chronicity: unspecified Qualified Code(s): M25.511 - Pain in right shoulder; M25.512 - Pain in left shoulder Plan: X-rays of both shoulders done a few months ago revealed (+) 2 anchors along the left femoral neck from rotator cuff surgery, new since the last exam 01/25/2013. There is mild degenerative changes in the bilateral glenohumeral joints and right AC joint. There is a small bone fragment adjacent to the lateral clavicle at the AC joint likely from an old injury. Soft tissues are normal Patient states that his shoulder pain has improved significantly with the cortisone injection(s) that he received from orthopedics recently Follow up with orthopedics as scheduled (9) Low back pain: Code(s): M54.50 - Low back pain, unspecified Category: Medical Qualifiers: Chronicity: unspecified Back pain laterality: left Sciatica presence: without sciatica Qualified Code(s): M54.50 - Low back pain, unspecified Plan: Reinforced activity and weightlifting restrictions to avoid aggravating his low back pain X-rays of the lumbar spine done a few months ago revealed (+) mild dextroscoliosis and degenerative disc changes at L3-4 through L5-S1 disc levels with mild bridging osteophytes at the L3-4 disc level. No acute fracture, lytic or sclerotic process are seen (10) Allergic rhinitis: Code(s): J30.9 - Allergic rhinitis, unspecified Category: Medical Qualifiers: Allergic rhinitis trigger: unspecified Allergic rhinitis seasonality: unspecified Qualified Code(s): J30.9 - Allergic rhinitis, unspecified Plan: Continue Fluticasone 50 mcg nasal spray QD PRN (11) BPH (benign prostatic hyperplasia): Code(s): N40.0 - Benign prostatic hyperplasia without lower urinary tract symptoms Category: Medical Qualifiers: Lower urinary tract symptom presence: symptoms present Lower urinary tract symptom detail: weak urinary stream Qualified Code(s): N40.1 - Benign prostatic hyperplasia with lower urinary tract symptoms; R39.12 - Poor urinary stream Plan: Continue Tamsulosin 0.4 mg Q HS Follow up with urology as scheduled (12) Erectile dysfunction: Code(s): N52.9 - Male erectile dysfunction, unspecified Category: Medical Qualifiers: Erectile dysfunction type: unspecified Qualified Code(s): N52.9 - Male erectile dysfunction, unspecified Plan: Continue Sildenafil 100 mg PRN (13) Overweight (BMI 25.0-29.9): Code(s): E66.3 - Overweight Category: Medical Plan: Reinforced diet/exercise as tolerated/lose weight Plan Follow up in 4 months Orders: Orders Complete Blood Count Auto Diff 07/30/25 D64.9 - Anemia, unspecified Complete Blood Count Auto Diff 11/19/25 D64.9 - Anemia, unspecified Comprehensive [place]. Panel Fast 11/19/25 E78.00 - Pure hypercholesterolemia, unspecified Hemoglobin A1c 11/19/25 E11.9 - Type 2 diabetes mellitus without complications, R73.01 - Impaired fasting glucose TSH reflex Free T4 11/19/25 E78.00 - Pure hypercholesterolemia, unspecified Comprehensive [place]. Panel Fast 07/30/25 E78.00 - Pure hypercholesterolemia, unspecified Lipid Panel 07/30/25 E78.00 - Pure hypercholesterolemia, unspecified Lipid Panel 11/19/25 E78.00 - Pure hypercholesterolemia, unspecified UA CC w/rflx Micro + Cult 11/19/25 R30.0 - Dysuria Vitamin D 25-OH Total 11/19/25 E55.9 - Vitamin D deficiency, unspecified
== END 2025-07-26 17:17 | disposition home or self-care (01) ==
LOC: HO.HMCH 16:41
PROVIDERS: PCP Internal Medicine; Visit Provider Internal Medicine
DX: I25.10 Atherosclerotic heart disease of native coronary artery without angina pectoris (principal); J44.9 Chronic obstructive pulmonary disease, unspecified; E78.2 Mixed hyperlipidemia; I10 Essential (primary) hypertension; R73.01 Impaired fasting glucose; G47.33 Obstructive sleep apnea (adult) (pediatric); K21.9 Gastro-esophageal reflux disease without esophagitis; M25.511 Pain in right shoulder; M25.512 Pain in left shoulder; M54.50 Low back pain, unspecified; J30.9 Allergic rhinitis, unspecified; R39.12 Poor urinary stream

== ENCOUNTER 2025-07-30 09:06 | Outpatient (REF) | payer MEDICARE, SELFPAY ==
[2025-07-30 09:20] LABS: MANUAL DIFF FLAG NO
[2025-07-30 09:53] LABS: Hematocrit 39.1 % (42.0-52.0); Hemoglobin 12.8 g/dl (14.0-18.0); Imm Gran Abs Auto 0.02 X10*3/uL (0.00-0.03); Imm Gran Pct Auto 0.5 % (0.0-0.4); Lymphocytes Absolute Auto 1.4 X10*3/uL (1.2-4.9); Mean Corpuscular HGB Conc 32.7 g/dl (31.0-36.0); Mean Corpuscular Hemoglobin 30.0 pg (27.0-33.0); Mean Corpuscular Volume 91.6 fL (80.0-98.0); NRBC Abs Auto 0.000 X10*3/uL (0.0-0.012); NRBC Pct Auto 0.0 /100WBC (0.0-0.2); Platelet Count 262 X10*3/uL (160-400); Red Blood Count 4.27 X10*6/uL (4.60-5.80); White Blood Count 4.2 X10*3/uL (4.8-10.8)
[2025-07-30 10:26] LABS: Appearance Urine Clear; Glucose Urine UA Negative (Negative); PH 5.5 (5.0-9.0); Specific Gravity - Urine >= 1.030 (1.005-1.025)
[2025-07-30 10:45] LABS: Alanine Aminotransferase 23 U/L (0-40); Albumin Level 4.4 g/dL (3.5-5.0); Alkaline Phosphatase 50 U/L (39-117); Anion Gap 11 (12-20); Aspartate Amino Transferase 19 U/L (5-37); Blood Urea Nitrogen 21 mg/dL (9-16); Calcium 9.0 mg/dL (8.4-10.2); Carbon Dioxide 30 mmol/L (22-29); Chloride 107 mmol/L (96-108); Cholesterol 173 mg/dL (<200); Estimated Glomerular Filt Rate > 60; HDL Cholesterol 56 mg/dL (>40); Potassium 4.3 mmol/L (3.3-5.1); Sodium 144 mmol/L (135-145); Total Protein 6.8 g/dL (6.5-8.0); Triglycerides 91 mg/dL (<150)
[2025-07-30 11:00] LABS: Folate 9.3 ng/mL (> or = 4.0); Vitamin B12 712 pg/mL (200-900)
== END 2025-07-30 09:07 | disposition home or self-care (01) ==
LOC: HO.LAB 09:06
PROVIDERS: PCP Internal Medicine; Visit Provider Internal Medicine
DX: E11.9 Type 2 diabetes mellitus without complications (principal); E53.8 Deficiency of other specified B group vitamins; E55.9 Vitamin D deficiency, unspecified; M25.50 Pain in unspecified joint; E78.00 Pure hypercholesterolemia, unspecified; M79.7 Fibromyalgia; D64.9 Anemia, unspecified; R30.0 Dysuria
CPT/HCPCS: 36415; 80053; 80061; 81003; 82306; 82607; 82746; 83036; 84443; 85025; 85652; 86140

== ENCOUNTER → 2025-08-04 16:20 | Outpatient (BNV) | payer MEDICARE, SELFPAY | PROVIDERS: PCP Internal Medicine; Visit Provider Radiology Diagnostic Radiology | DX: M77.8 Other enthesopathies, not elsewhere classified (principal) | CPT/HCPCS: 73221 ==

== ENCOUNTER 2025-08-04 16:22 | Outpatient (REF) | payer MEDICARE, SELFPAY ==
--- NOTE | ~2025-08-04 | MR_ITS ---
EXAMINATION: MRI Shoulder without contrast, right TECHNIQUE: Multiplanar multisequence MR imaging through an upper extremity joint without contrast. INDICATION: Rotator cuff tear PRIOR: X-ray April 02, 2025 FINDINGS: Rotator Cuff: There is a full-thickness tear of supraspinatus tendon that extends into anterior infraspinatus tendon. There is also a delamination tear extending medially into infraspinatus tendon 3 cm. There is a 1.5 cm gap in supraspinatus tendon with a 1.5 cm remnant of tendon remaining attached at the greater tuberosity. The deep fibers of subscapularis tendon are torn and retracted 3 cm from lesser tuberosity. Thin superficial fibers remain intact. Labrum: Posterior superior labrum is degenerated, frayed, torn. Long biceps tendon: Long biceps tendon is medially dislocated from biceps groove and courses superficial to subscapularis tendon before entering the joint capsule medially. Acromioclavicular joint: AC joint is degenerated with hypertrophic changes. There are degenerative cystic changes. There is a joint effusion. Acromial morphology is flat, type I. There is a small amount of fluid in subacromial subdeltoid bursa. Axillary pouch: The axillary pouch is intact. Articular cartilage: There are no articular cartilage defects. Bones/Marrow: Mild reactive marrow signal change is evident in the humerus near the rotator cuff tear. Soft tissues: There is mild global fatty streaking of shoulder musculature consistent with deconditioning. MR/MR shoulder RT wo con IMPRESSION: There is a full-thickness tear of supraspinatus tendon 1.5 cm from the rotator cuff footprint. There is a 1.5 cm gap. Tear extends into anterior fibers of infraspinatus tendon. There is also a delamination tear extending 3 cm within infraspinatus tendon. There is a tear of the deep fibers of subscapularis tendon which are retracted 3 cm medial to lesser tuberosity. The retracted tendon is anterior to the glenoid. Thin remnant of superficial fibers remain intact. Long biceps tendon is medially dislocated from the groove and courses across the surface of the remaining intact fibers of subscapularis tendon. Posterior superior labrum is degenerated, frayed, and torn. There is moderate irregularity and degenerative change in the AC joint. There is evidence of deconditioning with mild fatty streaking of right shoulder musculature. There is no muscle edema. Electronically signed by: Johnson Pena MD 08/05/2025 11:19 AM EDT RP
--- OUTSIDE RECORDS SUMMARY | 2025-08-04 18:20 | XMS_ITS | Encounter Summary ---
Author Organization [facility] Address [address] [facility] [address] [place] [address] Phone Care Team Providers Care Mud Plant Operator Name Role Phone Aren Vaughn MD Primary Care Provider [phone] Encounter Details Date Type Department Care Team (Late st Contact Info) Description 11/01/2022 Procedure Pass OR Admitting Dept - Virtual Department [address] [place] [address] Social History Tobacco Use Types Packs/Day Years [...] on filedocumented in this encounter Care Teams Mud Plant Operator Relationship Specialty Start Date End Date Aren Vaughn MD [address] [place] [address] [place] [address] PCP - General Internal Medicine 07/11/22 documented as of this encounter Additional Source Comments The information contained in this document represents components of the legal health record. It is not the complete legal health record.[facility]
--- OUTSIDE RECORDS SUMMARY | 2025-08-04 18:20 | XMS_ITS | Data Portability ---
Author Organization [facility], [address] Address [address] [place] [address] Assessment No assessment recorded. Plan of Treatment Reminders Order Date Submit Date Provider Last Modified By Organization Details Last Modified Time Details Appointments None recorded. Lab rapid SARS CoV 2 Ag, QL IA, respiratory specimen [email or web address], [address] [place] [address], [address], 3 16:53:56 rapid flu (A+B) 2022 023 [email or web address] [facility], [address] [place] [address], [address], 3 16:53:56 Referral None recorded. Procedures None recorded. Surgeries None recorded. Imaging None recorded. Medication Orders albuterol sulfate HFA 90 mcg/actuati on aerosol inhaler 2022 023 [facility], [address] [place], [address], 3 16:53:58 prednisone 20 mg tablet 2022 023 [facility], [address] [place], [address], 3 16:54:00 azithromyci n 250 mg tablet 2022 023 [facility], [address] [place], [address], 16:54:00 Tessalsameera Perles 100 mg capsule 2022 023 [facility], [address] [facility], [place], [address], 16:53:59 Patient TargetsNo targets recorded. Patient Instructions Encounter Date Encounter Id Patient Instructions Last Modified By Organization Details Last Modified Time 11/01/2022 [id number] cough: care instructions [email or web address] Not available 11/01/2022 16:53:57 Reason for Referral None Reported. Results Created Date Observation Date Name Description Value Unit Range Abnormal Flag Note LastModifiedBy Organization Detail LastModifiedTime 11/01/1911/01/2022 rapid SARS CoV 2 Ag, QL IA, respi rator y speci men Unknown Analyte Normal =Negat petty Not Available [address], [address], 11/01/2022 16:16:20 11/01/19 23 11/01/2022 rapid SARS CoV 2 Ag, QL IA, respi rator y speci men Unknown Analyte negati ve Not Available [address] [place] [address], [address], 11/01/2022 16:16:20 11/01/19 23 11/01/2022 rapid flu (A+B) Unknown Analyte Normal = Negati ve Not Available [address] [place] [address], [address], 11/01/2022 16:16:32 11/01/19 23 11/01/2022 rapid flu (A+B) Unknown Analyte Normal = Negati ve Not Available [address] [place] [address], [address], 11/01/2022 16:16:32 11/01/19 23 11/01/2022 rapid flu (A+B) Unknown Analyte negati ve Not Available [address] [address] [place], [address], 11/01/2022 16:16:32 11/01/19 23 11/01/2022 rapid flu (A+B) Unknown Analyte negati ve Not Available [address] [address] [place], [address], 11/01/2022 16:16:32 Result Notes None recorded. Problems Name Problem SNOMED Code Status Onset Date Resolution Date Notes Provider Name and Address Organization Details Recorded Time Hypertensive disorder 65176499 Active 2022 Carmella Denise null, PA - [facility] 3 16:14:49 Hyperlipidemia 22314333 Active 2022 Carmella Denise null, PA - [facility] 3 16:15:05 Hernia of abdominal cavity 66207955 Active 2022 Carmella Denise null, PA - [facility] 3 16:15:22 Asthma 497829029 Active 2022 Carmella Denise null, PA - [facility] 3 16:15:35 Problem Notes None recorded. Medical Equipment None Reported. Allergies Allergen ID Allergen Name Allergen Category Reaction Reaction Severity Criticality Documentation Date Start Date Code Code System Note Provider Name and Address Organization Details Recorded Time 555333 ciproflox acin medicatio n angioedem a Not available high 11/01/2022 2551 RxNorm Carmella Sparks null, PA - [facility] 3 16:12:29 [...] Updated DateTime 3 167.64 cm 33.1 kg/m2 11220.4 4 g 97 % 97 % 0 56 /min 20 /min 98 [degF] 166/90 mm[Hg] Carmella Walker PA - [facility] 3 16:19:11 Social History Question Answer Notes LastModified by [employer] Details LastModified Time Tobacco Smoking Status Never Smoker Carmella pozo PA - [facility] 11/01/2022 16:15:51 Have You Had Direct Contact, Or Contact During Intimacy, With Monkeypox Rash, Scabs, Or Body Fluids From A Person With Monkeypox? No Information not available 11/01/2022 Have You Recently Traveled Abroad? No Information not available 11/01/2022 Sex: Unknown Functional Status Question Answer Note LastModified by [employer] Details LastModified Time How many times per [...] Influenza, MDCK, quadrivalent, PF 1 completed Carmella Sparks null, PA - [facility] 11/01/2022 16:12:18 Influenza, MDCK, quadrivalent, PF 8 completed Carmella Denise null, PA - [facility] 11/01/2022 16:12:18 Influenza, MDCK, quadrivalent, PF 0 completed Carmella Denise null, PA - [facility] 11/01/2022 16:12:18 Influenza, MDCK, quadrivalent, PF 2 completed Carmella Sparks null, PA - [facility] 11/01/2022 16:12:18 Influenza, MDCK, quadrivalent, PF 7 completed Carmella Denise null, PA - [facility] 11/01/2022 16:12:18 zoster recombinant 1 completed Carmella Sparks null, PA - [facility] 11/01/2022 16:12:18 zoster recombinant 0 completed Carmella Sparks null, PA - [facility] 11/01/2022 16:12:18 COVID-19, mRNA, LNP-S, PF, 30 mcg/0.3 mL dose 2 completed Carmella Sparks null, PA - [facility] 11/01/2022 16:12:18 COVID-19, mRNA, LNP-S, PF, 30 mcg/0.3 mL dose 1 completed Carmella Sparks null, PA - [facility] 11/01/2022 16:12:18 COVID-19, mRNA, LNP-S, PF, 30 mcg/0.3 mL dose 1 completed Carmella Sparks null, PA - [facility] 11/01/2022 16:12:18 Pneumococcal conjugate PCV20, polysaccharide [id number] conjugate, adjuvant, PF 2 completed Carmella Denise null, PA - [facility] 11/01/2022 16:12:18 COVID-19, mRNA, LNP-S, bivalent, PF, 30 mcg/0.3 mL dose 2 completed Carmella Denise null, PA - [facility] 11/01/2022 16:12:18 pneumococcal polysaccharide PPV23 0 completed Carmella Sparks null, PA - [facility] 11/01/2022 16:12:18 Tdap 3 completed Carmella Sparks null, PA - [facility] 11/01/2022 16:12:18 Tdap 9 completed Carmella Sparks null, PA - [facility] 11/01/2022 16:12:18 Tdap 0 completed Carmella Sparks null, PA - [facility] 11/01/2022 16:12:18 Influenza, high-dose, trivalent, PF 9 completed Carmella Sparks null, PA - [facility] 11/01/2022 16:12:18 Influenza, split virus, trivalent, preservative 6 completed Carmella Denise null, PA - [facility] 11/01/2022 16:12:18 Past Encounters Encounter ID Performer Location Encounter Start Date Encounter Closed Date Diagnosis/Indication Diagnosis SNOMED-CT Code Diagnosis ICD10 Code Diagnosis IMO Codes Diagnosis Note [id number] Lavell Lynne [address] [address] 11/01/2022 14:58:42 11/01/2022 17:00:28 Cough 26797491 R05.9 Given Hx and Sx will Rx [...] Broderick Member ID Guarantor Name 11/01/2022 1 [facility] (O) [id number] Donnell F Jossy [id number] Donnell Fenton Notes Date Note Type Note Provider Name and Address Organization Details Recorded Time 11/01/2022 text/html CoughReported by [id number] yo malec/o congestion, headache, cough since last Friday.Taking mucinex at home.Coughing up green/yellow phlegm.+ asthmanon smoker No feverNo chillsNo difficulty breathing or respiratory distressNo CPNo ear painNo sore throatNo Abdominal painNo nauseaNo vomitingNp diarrheaNo myalgiaNo fatigueNo rashNo HANo dizzinessNo recent travelNo known sick contactsROS as noted in the HPI Lavell Lynne DO [address] [place], [address], PA - [facility] 11/01/2022 17:00:04
--- OUTSIDE RECORDS SUMMARY | 2025-08-04 18:20 | XMS_ITS | Clinical Summary ---
Author Organization [facility] Address [address] [place] [address] Phone Care Team Providers Care A R Specialist Name Role Phone Aren Vaughn MD Primary Care Provider [phone] Allergies Active Allergy Reactions Criticality Noted Date [...] COMMERCIAL WELLSENSE NON NSPG PCP CLARITY COMMERCIAL [place] NON NSPG PCP CLARITY COMMERCIAL [place] NON NSPG PCP CLARITY COMMERCIAL WELLSENSE NON NSPG PCP CLARITY [facility]CIAL [facility] NON NSPG PCP CLARITY COMMERCIAL [place] NON NSPG PCP CLARITY COMMERCIAL [place] NON NSPG PCP CLARITY COMMERCIAL [facility] NON NSPG PCP CLARITY COMMERCIAL Care Teams A R Specialist Relationship Specialty Start Date End Date Aren Vaughn MD [address] [place] [address] PCP - General Internal Medicine 07/11/22 Additional Source Comments The information contained in this document represents components of the legal health record. It is not the complete legal health record.[facility]
--- OUTSIDE RECORDS SUMMARY | 2025-08-04 18:20 | XMS_ITS | Patient Health Record ---
Author Organization [facility] Address [address] [place] [address] Care Team Providers Care Gyroscope Technician Name Role Phone Star FARLEY, Debary Primary Care Provider Myron Costello [phone] Allergies Allergen (clinical drug ingredient) Drug/Non Drug Allergy documented on EMR Reaction Allergy Type Onset Date Status Ciprofloxacin Unknown Drug Allergy Act petty Reason For Referral No Information Medications Medication SIG (Take, Route, Frequency, Duration) Notes Start Date End Date Status hydroCHLOROthiazide 25 MG 1 tablet in th e morning Orally Once a day; Duration: 30 day(s) Active Metoprolol Succinate 25 MG 1 capsule Ora lly Once a day Active Lisinopril 40 MG 1 tablet Orally Once a day; Duration: 30 day(s) Active Flax Seed Oil 1300 MG 1 capsule Orally o nce a day Active Atorvastatin Calcium 80 MG 1 tablet Oral ly Once a day; Duration: 30 day(s) Active Centrum Silver - 1 tablet Orally once a day Active Aspir-81 81 MG 1 tablet Orally Once a day; Duration: 30 day(s) Active Tamsulosin HCl 0.4 MG 1 capsule Orally O nce a day; Duration: 30 day(s) Active Allergy 10 MG 1 tablet Orally Once a day; Duration: 30 day(s) Active Flovent HFA 220 MCG/ACT 1 puff Inhalatio n Twice a day Active Omeprazole 20 MG 1 capsule Orally Onc e a day; Duration: 30 day(s) Active Vitamin D3 Active Fluticasone Propionate 50 MCG/ACT 1 spray in each nostril Nasally Once a day Active Aleve 220 MG 1 tablet with food o r milk as needed Orally every 2-3 days Active Immunizations Vaccine Route Administration Date Status Comme nts Influenza Unknown 07/01/2018 Administered Influenza Unknown 06/06/2022 Administered Social History Tobacco Use: Social History Observation Description Date Details (start date - stop date) Former Smoker NA - NA Tobacco Use/Smoking Question Answer Notes Patient is a former smoker How long has it been since you last smoked? 5-10 years Alcohol Screen Question Answer Notes Did you have a drink contain ing alcohol in the past year? Yes How often did you have a dri nk containing alcohol in the past year? 2 to 3 times a week (3 points) How many drinks did you have on a typical day when you were drinking in the past year? 1 or 2 drinks (0 point) How often did you have 6 or more drinks on one occasion in the past year? Never (0 point) Points 3 Interpretation Negative Section Notes: Nonsmoker; no sig alcohol Nonsmoker; no sig alcohol Problems Problem Type SNOMED Code ICD Code Onset Dates Problem Status W/U Status Risk Notes Problem Esophageal reflux (609245211) Esophageal reflux (K21.9) Active confirmed Problem Screening for malignant neoplasm of colon (057198248) Encounter for screening for malignant neoplasm of colon (Z12.11) Active confirmed Problem Gastroesophageal reflux disease (590821909) Gastroesophageal reflux disease, esophagitis presence not specified (K21.9) Active confirmed Problem Anemia (140729344) Anemia, unspecified type (D64.9) Active confirmed Problem 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 Problem Graham's esophagus (103204852) 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 Plan Of Treatment Pending Test Test Name Order Date Pathology 10/03/2022 Future Test Test Name Order Date UPPER GI ENDOSCOPY 03/17/2019 COLONOSCOPY 03/17/2019 UPPER GI ENDOSCOPY 08/21/2022 Next Appt Details Provider Name:Myron Trujillo , 11/02/2025 04:20:00 PM, [address] [place] [address], [address], [place], [address], Insurance Providers Payer Name Payer Address Payer Phone Subscriber Number Group Number Insured Name Patient Relationship to Insured Coverage Start Date Coverage End Date [employer] (No Referra l) [address] [address] [place] [address] [id number] ARLEN BALTAZAR Self - patient is the insured Medical (General) History Medical History History ICD Code Denies ND,DM,CVA,renal disease COPD Hypertension Colonoscopy 10/2009 with a hyperplastic p olyp, divertciulsosis BPH GERD--he had a negative julia um swallow in December of 2018 other than the finding of some mild esophageal dysmotility and some small amount of reflux Hyperlipidemia Going for a sleep study end of 03/2019 Negative abdominal ultrasound November 07 Colonoscopy in April of 2019 was negative Upper endoscopy in April revealed a small to moderate-sized hiatal hernia, mild changes of reflux with a small area of Graham's esophagus and no dysplasia, and normal duodenal biopsies in regard to his previous anemia Anemia but with normal iron studies in Surgical History Surgery Date(Month/Year) Basal cell skin cancer LASIK surgery for both eyes Left shoulder basal cell skin cancer - future surgery sep 16 2022
== END 2025-08-04 16:23 | disposition home or self-care (01) ==
LOC: HO.MRI 16:22
PROVIDERS: PCP Internal Medicine; Visit Provider Physician Assistant
DX: M77.8 Other enthesopathies, not elsewhere classified (principal)
CPT/HCPCS: 73221

== ENCOUNTER 2025-08-26 08:32 | Outpatient (AMB) | payer MEDICARE, SELFPAY ==
--- NOTE | 2025-08-26 08:35 | A.OFFVIS_ITS ---
Vital Signs 08/26/25 08:37 Height 5 ft 7 in Weight 185 lb BMI 29.0 Intake Visit Reasons: OV-MRI Follow up Intake Note: Donnell is a 65 year old male who presents today for an MRI Review of the right shoulder. Today patient reports he is doing well, stating his pain has not been too bad. Allergies ciprofloxacin (From Cipro) Allergy (Mild, Verified 08/26/25 08:40) SWELLING, anaphylaxis atorvastatin Adverse Reaction (Intermediate, Verified 08/26/25 08:40) dizziness, lightheadedness simvastatin Adverse Reaction (Intermediate, Verified 08/26/25 08:40) dizziness, lightheadedness Medication List - Last Reconciled 08/26/25 by Mike Martines PA-C albuterol sulfate 90 mcg/actuation (Ventolin HFA) 1 inh inhalation QID PRN aspirin (Adult Low Dose Aspirin) 81 mg PO DAILY hydrochlorothiazide 25 mg PO QAM lisinopril 40 mg PO DAILY metoprolol succinate ER 25 mg PO DAILY omeprazole 20 mg PO BID 30 days rosuvastatin 5 mg PO DAILY 90 days tamsulosin 0.4 mg PO BEDTIME 90 days HPI HPI OV-MRI Follow up: Details: 65-year-old gentleman returns to the office today for a follow-up MRI right shoulder. Patient states since his last visit his pain has been improving and he is able to perform most activities without limitations. He does have intermittent discomfort but it does not limit him from activities. [facility] Medical History (Updated 08/26/25 @ 09:05 by Mike Martines PA-C) Overweight (BMI 25.0-29.9) Allergic rhinitis Obesity (BMI 30-39.9) Essential hypertension Mixed hyperlipidemia BMI 35.0-35.9,adult Basal cell carcinoma of skin Barretts esophagus Anemia Hiatal hernia GERD (gastroesophageal reflux disease) BPH (benign prostatic hyperplasia) COPD (chronic obstructive pulmonary disease) Hematoma of right lower leg Eczema Weak urinary stream Nocturia Stenosis of left anterior descending (LAD) artery Atherosclerotic cardiovascular disease Surgical History H/O shoulder surgery S/P LASIK surgery of both eyes History of colonoscopy Family History Mother Hypertension Diabetes Father Hypertension CAD (coronary artery disease) Brother No problems noted. Brother No problems noted. Brother No problems noted. Brother No problems noted. Sister No problems noted. Sister No problems noted. Sister No problems noted. Sister No problems noted. Son No problems noted. Son No problems noted. Daughter No problems noted. Social History Housing: House Alcohol intake: current Alcohol intake frequency: a few times a week Patient Tobacco Use Status: Former Tobacco user Tobacco use type: Cigarette e-Cigarette/Vaping Use: Never Used Second Hand Smoke Exposure: No service: No Current occupational status: employed Cognitive needs: No Hearing needs: Yes (hearing aide) Vision needs: Yes (glasses) Review of Systems Const All systems reviewed & are unremarkable except as noted in HPI and below Physical Exam Vital Signs: BMI result Body Mass Index 29.0 Const General: cooperative and no acute distress Orientation/consciousness: patient oriented x3 Resp Effort & Inspection: normal respiratory effort and able to speak in complete sentences Cardio Peripheral pulses: Peripheral pulses 2+ throughout Neuro General: patient oriented x3 Extrem Other: Right shoulder normal to inspection he has full range of motion in all planes . He is able to perform rotator cuff testing with acceptable strength. No significant deficits. Neurovascularly intact. Results Reviewed Results Reviewed: MR shoulder RT wo con IMPRESSION: There is a full-thickness tear of supraspinatus tendon 1.5 cm from the rotator cuff footprint. There is a 1.5 cm gap. Tear extends into anterior fibers of infraspinatus tendon. There is also a delamination tear extending 3 cm within infraspinatus tendon. There is a tear of the deep fibers of subscapularis tendon which are retracted 3 cm medial to lesser tuberosity. The retracted tendon is anterior to the glenoid. Thin remnant of superficial fibers remain intact. Long biceps tendon is medially dislocated from the groove and courses across the surface of the remaining intact fibers of subscapularis tendon. Posterior superior labrum is degenerated, frayed, and torn. There is moderate irregularity and degenerative change in the AC joint. There is evidence of deconditioning with mild fatty streaking of right shoulder musculature. There is no muscle edema. Assessment & Plan Assessment & Plan (1) Right rotator cuff tear: Code(s): M75.101 - Unspecified rotator cuff tear or rupture of right shoulder, not specified as traumatic Category: Medical Qualifiers: Encounter type: subsequent encounter Rotator cuff tear extent: complete Rotator cuff tear trauma status: traumatic Qualified Code(s): S46.011D - Strain of muscle(s) and tendon(s) of the rotator cuff of right shoulder, subsequent encounter Plan: I discussed with the patient the extent of his MRI findings and well he does have a tear he continues to be quite functional. I explained to the patient surgical intervention would not be warranted at this time given his functional capacity. I did explain however if he develops worsening symptoms such as limited motion or significant weakness he should contact us so we can re- evaluate him as we would not want his tendon to become completely retracted and atrophied to the point beyond repair. I encouraged him to work with physical th erapy or at least a home exercise program to maintain and improve rotator cuff strengthening periscapular stabilization. He did express understanding and will work on a home exercise program. He did have a left shoulder rotator cuff repair so he is familiar with these exercises. If there is any concerns going forward he will contact our office otherwise follow up as needed. Coding Level of Care Code Complex visit Add On G2211 Diagnoses Traumatic complete tear of right rotator cuff, subsequent encounter S46.011D Encounter type: subsequent encounter Rotator cuff tear extent: complete Rotator cuff tear trauma status: traumatic
--- OUTSIDE RECORDS SUMMARY | 2025-08-26 08:35 | XMS_ITS | Clinical Summary ---
Author Organization [facility] Address [address] [place] [address] Phone Care Team Providers Care Record Changer Assembler Name Role Phone Aren Vaughn MD Primary Care Provider [phone] Allergies Active Allergy Reactions Criticality Noted Date [...] COMMERCIAL WELLSENSE NON NSPG PCP CLARITY COMMERCIAL CALUMETENSE NON NSPG PCP CLARITY COMMERCIAL CALUMETENSE NON NSPG PCP CLARITY COMMERCIAL WELLSENSE NON NSPG [facility]CP [facility] PCP CLARITY COMMERCIAL CALUMETENSE NON NSPG PCP CLARITY COMMERCIAL CALUMETENSE NON NSPG PCP [facility] PCP CLARITY COMMERCIAL Care Teams Record Changer Assembler Relationship Specialty Start Date End Date Aren Vaughn MD [address] [place] [id number] PCP - General Internal Medicine 07/11/22 Additional Source Comments The information contained in this document represents components of the legal health record. It is not the complete legal health record.[facility]
--- OUTSIDE RECORDS SUMMARY | 2025-08-26 08:35 | XMS_ITS | Patient Health Record ---
Author Organization [facility] Address [address] [place] [address] Care Team Providers Care Courtesy Driver Name Role Phone Star FARLEY, Clementon Primary Care Provider Myron Costello [phone] Allergies Allergen (clinical drug ingredient) Drug/Non Drug Allergy documented on EMR Reaction Allergy Type Onset Date Status Ciprofloxacin Unknown Drug Allergy Act petty Reason For Referral No Information Medications Medication SIG (Take, Route, Frequency, Duration) Notes Start Date End Date Status hydroCHLOROthiazide 25 MG Tablet 1 tablet in the morning Orally Once a day; Duration: 30 day(s) Active Metoprolol Succinate 25 MG Capsule ER 24 Hour Sprinkle 1 capsule Orally Once a day Active Lisinopril 40 MG Tablet 1 tablet Orally Once a day; Duration: 30 day(s) Active Flax Seed Oil 1300 MG Capsule 1 capsule Orally once a day Active Atorvastatin Calcium 80 MG Tablet 1 tablet Orally Once a day; Duration: 30 day(s) Active Centrum Silver - Tablet 1 tablet Orally once a day Active Aspir-81 81 MG Tablet Delaye d Release 1 tablet Orally Once a day; Duration: 30 day(s) Active Tamsulosin HCl 0.4 MG Capsule 1 capsule Orally Once a day; Duration: 30 day(s) Active Allergy 10 MG Tablet 1 tablet Orally Onc e a day; Duration: 30 day(s) Active Flovent HFA 220 MCG/ACT Aerosol 1 puff I nhalation Twice a day Active Omeprazole 20 MG Capsule Delayed Release 1 capsule Orally Once a day; Duration: 30 day(s) Active Vitamin D3 Active Fluticasone Propionate 50 MCG/ACT Suspension 1 spray in each nostril Nasally Once a day Active Aleve 220 MG Tablet 1 tablet with food o r milk as needed Orally every 2-3 days Active Immunizations Vaccine Route Administration Date Status Comme nts Influenza Unknown 07/01/2018 Administered Influenza Unknown 06/06/2022 Administered Social History Tobacco Use: Social History Observation Description Date Details (start date - stop date) Former Smoker NA - NA Social History Drugs/Alcohol: Social Info Question Answer Notes Alcohol Screen Did you have a drink containing alcohol in the past year? Yes How often did you have a drink containing alcohol in the past year? 2 to 3 times a week (3 points) How many drinks did you have on a typical day when you were drinking in the past year? 1 or 2 drinks (0 point) How often did you have 6 or more drinks on one occasion in the past year? Never (0 point) Points 3 Interpretation Negative Tobacco Use: Social Info Question Answer Notes Tobacco Use/Smoking Patient is a former smoker How long has it been since you last smoked? 5-10 years Additional Details Category Social Info Options Details Miscellaneous: Marital status: Occupation: construction wor ker Section Notes: Nonsmoker; no sig alcohol Nonsmoker; no sig alcohol Problems Problem Type SNOMED Code ICD Code Onset Dates Problem Status W/U Status Risk Notes Problem Esophageal reflux (434861066) Esophageal reflux (K21.9) Active confirmed Problem Screening for malignant neoplasm of colon (410407685) Encounter for screening for malignant neoplasm of colon (Z12.11) Active confirmed Problem Gastroesophageal reflux disease (923009868) Gastroesophageal reflux disease, esophagitis presence not specified (K21.9) Active confirmed Problem Anemia (126740559) Anemia, unspecified type (D64.9) Active confirmed Problem Graham esophagus (613842861) 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 Problem Graham's esophagus (337433914) 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 Plan Of Treatment Pending Test Test Name Order Date Pathology 10/03/2022 Future Test Test Name Order Date UPPER GI ENDOSCOPY 03/17/2019 COLONOSCOPY 03/17/2019 UPPER GI ENDOSCOPY 08/21/2022 Next Appt Details Provider Name:Myron Trujillo , 11/02/2025 04:20:00 PM, [address] [place] [address], [address], [place], [address], Insurance Providers Payer Name Payer Address Payer Phone Subscriber Number Group Number Insured Name Patient Relationship to Insured Coverage Start Date Coverage End Date [employer] (No Referra l) [address] [address] [place] [address] [id number] DELANEY, ALREN Self - patient is the insured Medical (General) History Medical History History ICD Code Denies PR,DM,CVA,renal disease COPD Hypertension Colonoscopy 10/2009 with a [...]
--- OUTSIDE RECORDS SUMMARY | 2025-08-26 08:35 | XMS_ITS | Data Portability ---
Author Organization [facility] Address [address] [place] [address] Assessment No assessment recorded. Plan of Treatment Reminders Order Date Submit Date Provider Last Modified By Organization Details Last Modified Time Details Appointments None recorded. Lab rapid SARS CoV 2 Ag, QL IA, respiratory specimen 2022 023 [email or web address], [address] [place] [address], [phone], 3 16:53:56 rapid flu (A+B) 2022 023 [email or web address] [address], [address] [place] [address], [phone], 3 16:53:56 Referral None recorded. Procedures None recorded. Surgeries None recorded. Imaging None recorded. Medication Orders albuterol sulfate HFA 90 mcg/actuati on aerosol inhaler 2022 023 [facility], [address] [place], [address], 3 16:53:58 prednisone 20 mg tablet 2022 023 [facility], [address] [place], [address], 3 16:54:00 azithromyci n 250 mg tablet 2022 023 [facility], [address] [place], [address], 16:54:00 Tessalsameera Perles 100 mg capsule 2022 023 [facility], [address] [facility], [place], [address], 16:53:59 Patient TargetsNo targets recorded. Patient Instructions Encounter Date Encounter Id Patient Instructions Last Modified By Organization Details Last Modified Time 11/01/2022 [id number] cough: care instructions [email or web address] Not available 11/01/2022 16:53:57 Reason for Referral None Reported. Results Created Date Observation Date Name Description Value Unit Range Abnormal Flag Note LastModifiedBy Organization Detail LastModifiedTime 11/01/1911/01/2022 rapid SARS CoV 2 Ag, QL IA, respi rator y speci men Unknown Analyte Normal =Negat petty Not Available [address], [address], 11/01/2022 16:16:20 11/01/19 23 11/01/2022 rapid SARS CoV 2 Ag, QL IA, respi rator y speci men Unknown Analyte negati ve Not Available [address] [place] [address], [address], 11/01/2022 16:16:20 11/01/19 23 11/01/2022 rapid flu (A+B) Unknown Analyte Normal = Negati ve Not Available [address] [place] [address], [address], 11/01/2022 16:16:32 11/01/19 23 11/01/2022 rapid flu (A+B) Unknown Analyte Normal = Negati ve Not Available [address] [place] [address], [address], 11/01/2022 16:16:32 11/01/19 23 11/01/2022 rapid flu (A+B) Unknown Analyte negati ve Not Available [address] [address] [place], [address], 11/01/2022 16:16:32 11/01/19 23 11/01/2022 rapid flu (A+B) Unknown Analyte negati ve Not Available [address] [address] [place], [address], 11/01/2022 16:16:32 Result Notes None recorded. Problems Name Problem SNOMED Code Status Onset Date Resolution Date Notes Provider Name and Address Organization Details Recorded Time Hypertensive disorder 53497496 Active 2022 Carmella Newton null, PA - [facility] 3 16:14:49 Hyperlipidemia 29466863 Active 2022 Carmella Newton null, PA - [facility] 3 16:15:05 Hernia of abdominal cavity 86860493 Active 2022 Carmella Newton null, PA - [facility] 3 16:15:22 Asthma 448106575 Active 2022 Carmella Newton null, PA - [facility] 3 16:15:35 Problem Notes None recorded. Medical Equipment None Reported. Allergies Allergen ID Allergen Name Allergen Category Reaction Reaction Severity Criticality Documentation Date Start Date Code Code System Note Provider Name and Address Organization Details Recorded Time 109306 ciproflox acin medicatio n angioedem a Not available high 11/01/2022 2551 RxNorm Carmella Newton null, PA - [facility] 3 16:12:29 [...] mass index (BMI) Body weight Oxygen saturation Pain severity - 0-10 verbal numeric rating [Score] - Reported Heart rate Respiratory rate Body temperature Systolic And Diastolic Provider Name and Address Organization Details Last Updated DateTime 3 167.64 cm 33.1 kg/m2 75989.4 4 g 97 % 0 56 /min 20 /min 98 [degF] 166/90 mm[Hg] Carmellasharee Walker PA - [facility] 3 16:19:11 Social History Question Answer Notes LastModified by [email or web address] Details LastModified Time Tobacco Smoking Status Never Smoker Carmellamatthias Walker null, PA - [facility] 11/01/2022 16:15:51 Have You Had Direct Contact, Or Contact During Intimacy, With Monkeypox Rash, Scabs, Or Body Fluids From A Person With Monkeypox? No Information not available 11/01/2022 Have You Recently Traveled Abroad? No Information not available 11/01/2022 Sex: Unknown Functional Status Question Answer Note LastModified by [email or web address] Details LastModified Time How many times per [...] split virus, quadrivalent, preservative 9 completed Carmella Newton null, PA - [facility] 11/01/2022 16:12:18 Influenza, split virus, quadrivalent, preservative 8 completed Carmella Denise null, PA - [facility] 11/01/2022 16:12:18 Influenza, MDCK, quadrivalent, PF 1 completed Carmella Newton null, PA - [facility] 11/01/2022 16:12:18 Influenza, MDCK, quadrivalent, PF 8 completed Carmella Denise null, PA - [facility] 11/01/2022 16:12:18 Influenza, MDCK, quadrivalent, PF 0 completed Carmella Newton null, PA - [facility] 11/01/2022 16:12:18 Influenza, MDCK, quadrivalent, PF 2 completed Camrella Denise null, PA - [facility] 11/01/2022 16:12:18 Influenza, MDCK, quadrivalent, PF 7 completed Carmella Newton null, PA - [facility] 11/01/2022 16:12:18 zoster recombinant 1 completed Carmella Denise null, PA - [facility] 11/01/2022 16:12:18 zoster recombinant 0 completed Carmella Denise null, PA - [facility] 11/01/2022 16:12:18 COVID-19, mRNA, LNP-S, PF, 30 mcg/0.3 mL dose 2 completed Carmella Denise null, PA - [facility] 11/01/2022 16:12:18 COVID-19, mRNA, LNP-S, PF, 30 mcg/0.3 mL dose 1 completed Carmella Newton null, PA - [facility] 11/01/2022 16:12:18 COVID-19, mRNA, LNP-S, PF, 30 mcg/0.3 mL dose 1 completed Carmella Newton null, PA - [facility] 11/01/2022 16:12:18 Pneumococcal conjugate PCV20, polysaccharide [id number] conjugate, adjuvant, PF 2 completed Carmella Denise null, PA - [facility] 11/01/2022 16:12:18 COVID-19, mRNA, LNP-S, bivalent, PF, 30 mcg/0.3 mL dose 2 completed Carmella Newton null, PA - [facility] 11/01/2022 16:12:18 pneumococcal polysaccharide PPV23 0 completed Carmella Newton null, PA - [facility] 11/01/2022 16:12:18 [...] ICD10 Code Diagnosis IMO Codes Diagnosis [place] [id number] [place] [address] [address] 11/01/2022 14:58:42 11/01/2022 17:00:28 Cough 76152646 R05.9 Given Hx and Sx will Rx Abx and albuterol MDITessalsangeeta n perles prn coughTrial of mucinex prn congestion Humidified [...] Broderick Member ID Guarantor Name 11/01/2022 1 [facility] (O) [id number] Donnell F Jossy [id number] Donnell Fenton Notes Date Note Type Note Provider Name and Address Organization Details Recorded Time 11/01/2022 text/html CoughReported by [email or web address] yo malec/o congestion, headache, cough since last Friday.Taking mucinex at home.Coughing up green/yellow phlegm.+ asthmanon smoker No feverNo chillsNo difficulty breathing or respiratory distressNo CPNo ear painNo sore throatNo Abdominal painNo nauseaNo vomitingNp diarrheaNo myalgiaNo fatigueNo rashNo HANo dizzinessNo recent travelNo known sick contactsROS as noted in the HPI Lavell Lynne [place] [facility] [place], [address], PA - [facility] 11/01/2022 17:00:04
--- OUTSIDE RECORDS SUMMARY | 2025-08-26 08:35 | XMS_ITS | Encounter Summary ---
Author Organization [facility] Address [address] [place] [address] Phone Care Team Providers Care Regional Agronomist Name Role Phone Aren Vaughn MD Primary Care Provider [phone] Encounter Details Date Type Department Care Team (Late st Contact Info) Description 11/01/2022 Procedure Pass OR Admitting Dept - Virtual Department [address] [place] [address] Social History Tobacco Use Types Packs/Day Years [...] on filedocumented in this encounter Care Teams Regional Agronomist Relationship Specialty Start Date End Date Aren Vaughn MD [address] [place] [address] [place] [address] PCP - General Internal Medicine 07/11/22 documented as of this encounter Additional Source Comments The information contained in this document represents components of the legal health record. It is not the complete legal health record.[facility]
[2025-08-26 08:37] VITALS: BMI 29.0
== END 2025-08-26 09:38 | disposition home or self-care (01) ==
LOC: HO.HOS 08:33
PROVIDERS: PCP Internal Medicine; Visit Provider Physician Assistant
DX: S46.011D Strain of muscle(s) and tendon(s) of the rotator cuff of right shoulder, subsequent encounter (principal)
CPT/HCPCS: 99213; G2211

== ENCOUNTER → 2025-08-26 08:32 | Outpatient (BNVA) | payer MEDICARE, SELFPAY | PROVIDERS: PCP Internal Medicine; Visit Provider Physician Assistant | DX: S46.011D Strain of muscle(s) and tendon(s) of the rotator cuff of right shoulder, subsequent encounter (principal); J01.11 Acute recurrent frontal sinusitis; H00.15 Chalazion left lower eyelid; Z87.891 Personal history of nicotine dependence; Z13.30 Encounter for screening examination for mental health and behavioral disorders, unspecified | CPT/HCPCS: 96127; 99212 ==

== ENCOUNTER 2025-08-26 16:22 | Outpatient (AMB) | payer MEDICARE, SELFPAY ==
--- NOTE | 2025-08-26 16:26 | A.OFFPC_ITS ---
Vital Signs 08/26/25 16:31 Height 5 ft 7 in Weight 190 lb BMI 29.8 BP 140/72 H Blood Pressure Location Lt brachial Position Sitting Respiration 18 Pulse 61 Pulse Source Pulse Oximeter Temp Source Temporal Artery Scan Pulse Oximetry (%) 96 Oxygen Delivery Method Room Air Intake Visit Reasons: Upper respiratory infection Women Nurse Required: No Accompanied by: Self / Same As Patient Allergies ciprofloxacin (From Cipro) Allergy (Mild, Verified 08/26/25 16:32) SWELLING, anaphylaxis atorvastatin Adverse Reaction (Intermediate, Verified 08/26/25 16:32) dizziness, lightheadedness simvastatin Adverse Reaction (Intermediate, Verified 08/26/25 16:32) dizziness, lightheadedness Medication List - Last Reconciled 08/26/25 by Agueda Apodaca MD albuterol sulfate 90 mcg/actuation (Ventolin HFA) 1 inh inhalation QID PRN aspirin (Adult Low Dose Aspirin) 81 mg PO DAILY hydrochlorothiazide 25 mg PO QAM lisinopril 40 mg PO DAILY metoprolol succinate ER 25 mg PO DAILY omeprazole 20 mg PO BID 30 days rosuvastatin 5 mg PO DAILY 90 days tamsulosin 0.4 mg PO BEDTIME 90 days Tobacco use date assessed: 08/26/25 Last assessed Fall Risk: 08/26/25 Dental Screening Dental Screen Date: 08/26/25 Did you have a dental visit in the last 12 months?: Yes Did you have a dental problem in the last 6 months where you did not have access to dental care?: No Was dental information given to patient?: Patient has dentist HPI HPI Comments History of Present Illness Details The patient is a 65 year old individual presenting with complaints of a red and dry eye, a sore in the left nostril, and sinus symptoms. The patient reports nasal congestion with greenish-brown mucus from the nose and for spitting up, along with a sore in the left nostril and pressure in the forehead. These symptoms are recurrent; a prior episode about three to four weeks ago was treated with antibiotics at a clinic, which provided temporary resolution, but symptoms returned a couple of weeks after completing the medication. Associated symptoms include some headaches and a slight cough attributed to post-nasal drip. The patient denies any fever or chills. The patient endorses a history of sinus infections. The left eye has been red with a bump in the lower anyi., that is not painful. The patient has been using a gel for dryness, with the last application being yesterday. [facility] Medical History Overweight (BMI 25.0-29.9) Allergic rhinitis Obesity (BMI 30-39.9) Essential hypertension Mixed hyperlipidemia BMI 35.0-35.9,adult Basal cell carcinoma of skin Barretts esophagus Anemia Hiatal hernia GERD (gastroesophageal reflux disease) BPH (benign prostatic hyperplasia) COPD (chronic obstructive pulmonary disease) Hematoma of right lower leg Eczema Weak urinary stream Nocturia Stenosis of left anterior descending (LAD) artery Atherosclerotic cardiovascular disease Surgical History H/O shoulder surgery S/P LASIK surgery of both eyes History of colonoscopy Family History Mother Hypertension Diabetes Father Hypertension CAD (coronary artery disease) Brother No problems noted. Brother No problems noted. Brother No problems noted. Brother No problems noted. Sister No problems noted. Sister No problems noted. Sister No problems noted. Sister No problems noted. Son No problems noted. Son No problems noted. Daughter No problems noted. Social History Housing: House Alcohol intake: current Alcohol intake frequency: a few times a week Patient Tobacco Use Status: Former Tobacco user Tobacco use type: Cigarette e-Cigarette/Vaping Use: Never Used Second Hand Smoke Exposure: No service: No Current occupational status: employed Cognitive needs: No Hearing needs: Yes (hearing aide) Vision needs: Yes (glasses) Questionnaire PHQ-9 Over the last 2 weeks, how often have you been bothered by any of the following problems? 1. Little interest or pleasure in doing things: nearly every day 2. Feeling down, depressed, or hopeless: not at all 3. Trouble falling or staying asleep, or sleeping too much: not at all 4. Feeling tired or having little energy: more than half the days 5. Poor appetite or overeating: not at all 6. Feeling bad about yourself - or that you are a failure or have let yourself or your family down: not at all 7. Trouble concentrating on things, such as reading the newspaper or watching television: not at all 8. Moving or speaking so slowly that other people could have noticed. Or the opposite - being so fidgety or restless that you have been moving around a lot more than usual: not at all 9. Thoughts that you would be better off or of hurting yourself in some way: not at all Total score: 5 Depression Screening Interpretation: Positive Depression Screening Follow-up: Follow-up Visit Requested Depression Screening Done: Yes 35069 - PHQ-9 Billing: Yes Source: Developed by Drs. Myron Coleman, Izabella Brenner, Jeffry Martin and colleagues, with an educational violette from [employer]. Thrive Questionnaire Date Thrive assessed: 08/26/25 I am a: Patient What is your living situation today?: I have a steady place to live Within the past 12 months, did the food you bought not last and you didn't have the money to get more?: Never true Within the past 12 months, did you worry whether your food would run out before you got money to buy more?: I choose not to answer this question Do you have trouble paying for medicines?: No Do you have trouble getting transportation to medical appointments?: I choose not to answer this question Do you have trouble paying your heating and electricity bill?: No Do you have trouble taking care of your child, family member or friend?: No Do you have trouble with day-to-day activities such as bathing, preparing meals, shopping, managing finances, etc.?: No Are you currently unemployed and looking for a job?: No Are you interested in more education?: No Please select the resources that you would like help with: None Currently or been in a relationship where the following occur: I choose not to answer THRIVE Score: 0 AUDIT C Alcohol Use Questionnaire (AUDIT-C) 1. How often do you have a drink containing alcohol?: 2-3 times a week 2. How many drinks containing alcohol do you have on a typical day when you are drinking?: 1 or 2 3. How often do you have six or more drinks on one occasion?: Never Total Score: 3 Score Reviewed/Action Taken: Yes DAV-7 AMB Questionnaire DAV-7 Date DAV - 7 assessed: 06/27/25 Feeling nervous, anxious, or on edge: 0 = Not at all Not being able to stop or control worryin = Not at all Worrying too much about different things: 0 = Not at all Trouble relaxin = Not at all Being so restless that it is hard to sit still: 0 = Not at all Becoming easily annoyed or irritable: 0 = Not at all Feeling afraid as if something awful might happen: 0 = Not at all Total DAV-7 score (0-4 normal; 5-9 mild; 10-14 moderate; 15-21 severe): 0 Source: Developed by Drs. Myron Coleman, Izabella Brenner, Jeffry Martin and colleagues, with an educational violette from [employer]. Physical exam (Primary Care) Vital Signs: Last Vital Signs Pulse 61 08/26/25 16:31 Resp 18 08/26/25 16:31 BP 140/72 H 08/26/25 16:31 Pulse Ox 96 08/26/25 16:31 Oxygen Delivery Method Room Air 08/26/25 16:31 General: Well-appearing, alert, oriented ?3, in no acute distress. HEENT: Normocephalic, atraumatic, PERRLA, EOMI, no scleral icterus, firm nontender localized nodule on the lower eyelid of the left eye with surrounding erythema. External ears normal, tympanic membranes intact bilaterally, no erythema or effusion. Nares patent, nasal mucosal erythema, no discharge. Posterior oropharyngeal erythema. Neck Supple. Cardiovascular: RRR, S1-S2 appreciated, no murmurs, rubs or gallops. Respiratory: Lungs clear to auscultation bilaterally, no wheezes, rales or rhonchi. Abdomen: Soft, nontender, nondistended. Normoactive bowel sounds. MSK: Normal range of motion in all extremities, no joint swelling or deformity. Skin: Intact, no rashes or lesions Neurologic: Alert and oriented X3, cranial nerves II?XII grossly intact, sensation and strength intact in bilateral lower and upper extremities. Psychiatry: Normal mood and affect. Appropriate behavior, good eye contact. BMI result Body Mass Index 29.8 Tobacco/Smoking Status: Tobacco use Status Tobacco use date assessed 08/26/25 08/26/25 16:35 Patient Tobacco Use Status Former Tobacco user 08/26/25 16:27 Tobacco use type Cigarette 08/26/25 16:27 e-Cigarette/Vaping Use Never Used 08/26/25 16:27 PHQ-9: PHQ-9 Score PHQ-9: Total score 5 08/26/25 16:35 Depression Screening Interpretation: Positive Depression Screening Follow-up: Follow-up Visit Requested Thrive Assessment: Date of Thrive Assessment Date Thrive assessed 08/26/25 08/26/25 16:35 Currently or been in a relationship where the following occur: I choose not to answer Coding Level of Care Code Est Pt Level 4 (89568) Diagnoses Acute recurrent frontal sinusitis J01.11 Sinusitis location: frontal Chronicity: acute Recurrence: recurrent Chalazion left lower eyelid H00.15 Additional Codes PHQ-9 - 63945 - PHQ-9 Billing: Yes ([id number]) Assessment & Plan Assessment & Plan (1) Sinusitis: Code(s): J32.9 - Chronic sinusitis, unspecified Qualifiers: Sinusitis location: frontal Chronicity: acute Recurrence: recurrent Qualified Code(s): J01.11 - Acute recurrent frontal sinusitis Plan: The patient presents with symptoms consistent with recurrent sinusitis, including purulent nasal discharge, congestion, and forehead pressure, which recurred with prior episodes about 4 weeks ago per patient. Plan -start amoxicillin 5 875 mg b.i.d. for 5 days. -use nasal saline irrigation (2) Chalazion left lower eyelid: Code(s): H00.15 - Chalazion left lower eyelid Plan: Patient presenting with redness and dryness in his left eye, with firm nontender localized nodule on the lower eyelid with surrounding erythema. He uses eyedrops for the dryness. will start Kyphuaky-Fsctzmgrk-Kmlykwcotxzgf eye ointment to be applied to the affected area three times a day for five to seven days. Additionally, the use of warm compresses and daily face and eye washing was advised. Medications: New amoxicillin 875 mg PO BID 10 tabs 0RF sinusitis sodium chloride 0.9% (Simply Saline) 1 spray intranasal BID PRN 45 grams 0RF dry nasal passages neomycin-polymyxin B-dexameth 3.5 mg/g-10,000 unit/g-0.1 % space evenly during waking hours 1 appl ophthalmic (eye) TID 3.5 grams 0RF 5 days
[2025-08-26 16:31] VITALS: BP 140/72; PULSE 61; RESP 18; O2SAT 96; BMI 29.8
== END 2025-08-26 17:01 | disposition home or self-care (01) ==
LOC: HO.HMCH 16:23
PROVIDERS: PCP Internal Medicine; Visit Provider Student in an Organized Health Care Education/Training Program
DX: J01.11 Acute recurrent frontal sinusitis (principal); H00.15 Chalazion left lower eyelid

== ENCOUNTER 2025-09-23 09:02 | Outpatient (REF) | payer MEDICARE, SELFPAY ==
[2025-09-23 09:21] LABS: MANUAL DIFF FLAG NO
--- OUTSIDE RECORDS SUMMARY | 2025-09-23 09:27 | XMS_ITS | Patient Health Record ---
Author Organization [facility] Address [address] [place] [address] Care Team Providers Care Straightedge Worker Name Role Phone Star FARLEY, [place] Primary Care Provider Myron Costello [phone] Allergies Allergen (clinical drug ingredient) Drug/Non Drug [...] W/U Status Risk Notes Problem Esophageal reflux (096573296) Esophageal reflux (K21.9) Active confirmed Problem Screening for malignant neoplasm of colon (315031983) Encounter for screening for malignant neoplasm of colon (Z12.11) Active confirmed Problem Gastroesophageal reflux disease (087451288) Gastroesophageal reflux disease, esophagitis presence not specified (K21.9) Active confirmed Problem Anemia (585197537) Anemia, unspecified type (D64.9) Active confirmed Problem Graham esophagus (562190143) 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 Problem Graham's esophagus (694127305) 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 Plan Of Treatment Pending Test Test Name Order Date Pathology 10/03/2022 Future Test Test Name Order Date UPPER GI ENDOSCOPY 03/17/2019 COLONOSCOPY 03/17/2019 UPPER GI ENDOSCOPY 08/21/2022 Next Appt Details Provider Name:Myron Trujillo , 11/02/2025 04:20:00 PM, [address] [place] [address], [address], [place], [address], Insurance Providers Payer Name Payer Address Payer Phone Subscriber Number Group Number Insured Name Patient Relationship to Insured Coverage Start Date Coverage End Date Aetna (No Referra l) [address] [address] [place] [address] [id number] DELANEY, ARLEN Self - patient is the insured Medical (General) History Medical History History ICD Code Denies [place],DM,CVA,renal disease COPD Hypertension Colonoscopy 10/2009 with a [...]
[2025-09-23 09:35] LABS: Hematocrit 39.6 % (42.0-52.0); Hemoglobin 13.2 g/dl (14.0-18.0); Imm Gran Abs Auto 0.02 X10*3/uL (0.00-0.03); Imm Gran Pct Auto 0.4 % (0.0-0.4); Lymphocytes Absolute Auto 1.7 X10*3/uL (1.2-4.9); Mean Corpuscular HGB Conc 33.3 g/dl (31.0-36.0); Mean Corpuscular Hemoglobin 30.2 pg (27.0-33.0); Mean Corpuscular Volume 90.6 fL (80.0-98.0); NRBC Abs Auto 0.000 X10*3/uL (0.0-0.012); NRBC Pct Auto 0.0 /100WBC (0.0-0.2); Platelet Count 234 X10*3/uL (160-400); Red Blood Count 4.37 X10*6/uL (4.60-5.80); White Blood Count 5.0 X10*3/uL (4.8-10.8)
[2025-09-23 10:00] LABS: Appearance Urine Cloudy; Glucose Urine UA Negative (Negative); PH 6.0 (5.0-9.0); Specific Gravity - Urine 1.020 (1.005-1.025)
[2025-09-23 10:09] LABS: Alanine Aminotransferase 22 U/L (0-40); Albumin Level 4.6 g/dL (3.5-5.0); Alkaline Phosphatase 51 U/L (39-117); Anion Gap 13 (12-20); Aspartate Amino Transferase 23 U/L (5-37); Blood Urea Nitrogen 17 mg/dL (9-16); Calcium 9.6 mg/dL (8.4-10.2); Carbon Dioxide 28 mmol/L (22-29); Chloride 102 mmol/L (96-108); Cholesterol 181 mg/dL (<200); Estimated Glomerular Filt Rate > 60; HDL Cholesterol 69 mg/dL (>40); Potassium 4.0 mmol/L (3.3-5.1); Sodium 139 mmol/L (135-145); Total Protein 7.1 g/dL (6.5-8.0); Triglycerides 110 mg/dL (<150)
== END 2025-09-23 09:03 | disposition home or self-care (01) ==
LOC: HO.LAB 09:02
PROVIDERS: Absent Provider Urology; PCP Internal Medicine; Visit Provider Internal Medicine
DX: R53.83 Other fatigue (principal); R53.81 Other malaise; R30.0 Dysuria; M25.50 Pain in unspecified joint; E78.00 Pure hypercholesterolemia, unspecified
CPT/HCPCS: 36415; 80053; 80061; 81003; 85025

== ENCOUNTER 2025-09-30 10:29 | Outpatient (REF) | payer MEDICARE, SELFPAY ==
--- OUTSIDE RECORDS SUMMARY | 2025-09-30 10:32 | XMS_ITS | Encounter Summary ---
Author Organization [facility] Address [address] [place] [address] Phone Care Team Providers Care Double End Production Grinder Name Role Phone Aren Vaughn MD Primary Care Provider [phone] Encounter Details Date Type Department Care Team (Late st Contact Info) Description 11/01/2022 Procedure Pass OR Admitting Dept - Virtual Department [address] [place] [address] Social History Tobacco Use Types Packs/Day Years [...] on filedocumented in this encounter Care Teams Double End Production Grinder Relationship Specialty Start Date End Date Aren Vaughn MD [address] [place] [address] [place] [address] PCP - General Internal Medicine 07/11/22 documented as of this encounter Additional Source Comments The information contained in this document represents components of the legal health record. It is not the complete legal health record.[facility]
--- OUTSIDE RECORDS SUMMARY | 2025-09-30 10:32 | XMS_ITS | Clinical Summary ---
Author Organization [facility] Address [address] [place] [address] Phone Care Team Providers Care Chocolate Coater Name Role Phone Aren Vaughn MD Primary Care Provider [phone] Allergies Active Allergy Reactions Criticality Noted Date [...] COMMERCIAL WELLSENSE NON NSPG PCP CLARITY COMMERCIAL MAUREPASENSE NON NSPG PCP CLARITY COMMERCIAL MAUREPASENSE NON NSPG PCP CLARITY COMMERCIAL WELLSENSE NON NSPG PCP CLARITY COMMERCIAL [facility] NON NSPG PCP CLARITY COMMERCIAL MAUREPASENSE NON NSPG PCP CLARITY COMMERCIAL MAUREPASENSE NON NSPG PCP CLARITY COMMERCIAL [facility] NON NSPG PCP CLARITY COMMERCIAL Care Teams Chocolate Coater Relationship Specialty Start Date End Date Aren Vaughn MD [address] [place] [id number] PCP - General Internal Medicine 07/11/22 Additional Source Comments The information contained in this document represents components of the legal health record. It is not the complete legal health record.[facility]
--- OUTSIDE RECORDS SUMMARY | 2025-09-30 10:33 | XMS_ITS | Data Portability ---
Author Organization [facility] Address [address] [place] [address] Assessment No assessment recorded. Plan of Treatment Reminders Order Date Submit Date Provider Last Modified By Organization Details Last Modified Time Details Appointments None recorded. Lab rapid SARS CoV 2 Ag, QL IA, respiratory specimen 2022 023 [id number], [address] [place] [address], [phone], 3 16:53:56 rapid flu (A+B) 2022 023 [email or web address] [address], [address] [place] [address], [phone], 3 16:53:56 Referral None recorded. Procedures None recorded. Surgeries None recorded. Imaging None recorded. Medication Orders albuterol sulfate HFA 90 mcg/actuati on aerosol inhaler 2022 023 [facility], [address] [place], [address], 3 16:53:58 prednisone 20 mg tablet 2022 023 [facility], [address] [place], [address], 3 16:54:00 azithromyci n 250 mg tablet 2022 023 [facility], [address] [place], [address], 16:54:00 Tessalsameera Perles 100 mg capsule 2022 023 [facility], [address] [facility], [place], [address], 16:53:59 Patient TargetsNo targets recorded. Patient Instructions Encounter Date Encounter Id Patient Instructions Last Modified By Organization Details Last Modified Time 11/01/2022 [id number] cough: care instructions [email or web address] Not available 11/01/2022 16:53:57 Reason for Referral None Reported. Results Created Date Observation Date Name Description Value Unit Range Abnormal Flag Note LastModifiedBy Organization Detail LastModifiedTime 11/01/1911/01/2022 rapid SARS CoV 2 Ag, QL IA, respi rator y speci men Unknown Analyte Normal =Negat petty Not Available [address], [address], 11/01/2022 16:16:20 11/01/19 23 11/01/2022 rapid SARS CoV 2 Ag, QL IA, respi rator y speci men Unknown Analyte negati ve Not Available [address] [place] [address], [phone], 11/01/2022 16:16:20 11/01/19 23 11/01/2022 rapid flu (A+B) Unknown Analyte Normal = Negati ve Not Available [address] [place] [address], [phone], 11/01/2022 16:16:32 11/01/19 23 11/01/2022 rapid flu (A+B) Unknown Analyte Normal = Negati ve Not Available [address] [place] [address], [phone], 11/01/2022 16:16:32 11/01/19 23 11/01/2022 rapid flu (A+B) Unknown Analyte negati ve Not Available [address] [address] [place], [address], 11/01/2022 16:16:32 11/01/19 23 11/01/2022 rapid flu (A+B) Unknown Analyte negati ve Not Available [address] [address] [place], [address], 11/01/2022 16:16:32 Result Notes None recorded. Problems Name Problem SNOMED Code Status Onset Date Resolution Date Notes Provider Name and Address Organization Details Recorded Time Hypertensive disorder 96087469 Active 2022 Carmella [place] null, [place] - [facility] 3 16:14:49 Hyperlipidemia 90453725 Active 2022 Carmella [place] null, [place] - [facility] 3 16:15:05 Hernia of abdominal cavity 82253644 Active 2022 Carmella [place] null, [place] - [facility] 3 16:15:22 Asthma 099406702 Active 2022 Carmella [place] null, [place] - [facility] 3 16:15:35 Problem Notes None recorded. Medical Equipment None Reported. Allergies Allergen ID Allergen Name Allergen Category Reaction Reaction Severity Criticality Documentation Date Start Date Code Code System Note Provider Name and Address Organization Details Recorded Time 723023 ciproflox acin medicatio n angioedem a Not available high 11/01/2022 2551 RxNorm Carmella [place] null, [place] - [facility] 3 16:12:29 [...] Updated DateTime 3 167.64 cm 33.1 kg/m2 72051.4 4 g 97 % 0 56 /min 20 /min 98 [degF] 166/90 mm[Hg] Carmellasharee Walker PA - [facility] 3 16:19:11 Social History Question Answer Notes LastModified by [employer] Details LastModified Time Tobacco Smoking Status Never Smoker Carmellamatthias Walker null, [place] - [facility] 11/01/2022 16:15:51 Have You Had Direct Contact, Or Contact During Intimacy, With Monkeypox Rash, Scabs, Or Body Fluids From A Person With Monkeypox? No Information not available 11/01/2022 Have You Recently Traveled Abroad? No Information not available 11/01/2022 Sex: Unknown Functional Status Question Answer Note LastModified by [employer] Details LastModified Time How many times per [...] split virus, quadrivalent, preservative 9 completed Carmella [place] null, [place] - [facility] 11/01/2022 16:12:18 Influenza, split virus, quadrivalent, preservative 8 completed Carmella Denise null, PA - [facility] 11/01/2022 16:12:18 Influenza, MDCK, quadrivalent, PF 1 completed Carmella [place] null, [place] - [facility] 11/01/2022 16:12:18 Influenza, MDCK, quadrivalent, PF 8 completed Carmella Denise null, PA - [facility] 11/01/2022 16:12:18 Influenza, MDCK, quadrivalent, PF 0 completed Carmella [place] null, [place] - [facility] 11/01/2022 16:12:18 Influenza, MDCK, quadrivalent, PF 2 completed Carmella Denise null, PA - [facility] 11/01/2022 16:12:18 Influenza, MDCK, quadrivalent, PF 7 completed Carmella [place] null, [place] - [facility] 11/01/2022 16:12:18 zoster recombinant 1 completed Carmella Denise null, PA - [facility] 11/01/2022 16:12:18 zoster recombinant 0 completed Carmella Denise null, PA - [facility] 11/01/2022 16:12:18 COVID-19, mRNA, LNP-S, PF, 30 mcg/0.3 mL dose 2 completed Carmella Denise null, PA - [facility] 11/01/2022 16:12:18 COVID-19, mRNA, LNP-S, PF, 30 mcg/0.3 mL dose 1 completed Carmella [place] null, [place] - [facility] 11/01/2022 16:12:18 COVID-19, mRNA, LNP-S, PF, 30 mcg/0.3 mL dose 1 completed Carmella [place] null, [place] - [facility] 11/01/2022 16:12:18 Pneumococcal conjugate PCV20, polysaccharide [id number] conjugate, adjuvant, PF 2 completed Carmella Denise null, PA - [facility] 11/01/2022 16:12:18 COVID-19, mRNA, LNP-S, bivalent, PF, 30 mcg/0.3 mL dose 2 completed Carmella [place] null, [place] - [facility] 11/01/2022 16:12:18 pneumococcal polysaccharide PPV23 0 completed Carmella [place] null, [place] - [facility] 11/01/2022 16:12:18 [...] ICD10 Code Diagnosis IMO Codes Diagnosis [place] [id number] [address] [address] 11/01/2022 14:58:42 11/01/2022 17:00:28 Cough 48243176 R05.9 Given Hx and Sx will Rx [...] Name 11/01/2022 1 [facility] (O) [id number] Donnell F Jossy [id number] 0 Donnell Fenton Notes Date Note Type Note Provider Name and Address Organization Details Recorded Time 11/01/2022 text/html CoughReported by [email or web address] yo malec/o congestion, headache, cough since last Friday.Taking mucinex at home.Coughing up green/yellow phlegm.+ asthmanon smoker No feverNo chillsNo difficulty breathing or respiratory distressNo CPNo ear painNo sore throatNo Abdominal painNo nauseaNo vomitingNp diarrheaNo myalgiaNo fatigueNo rashNo HANo dizzinessNo recent travelNo known sick contactsROS as noted in the HPI Lavell Lynne [place] [facility], [address], [place] - [facility] 11/01/2022 17:00:04
--- OUTSIDE RECORDS SUMMARY | 2025-09-30 10:33 | XMS_ITS | Patient Health Record ---
Author Organization [facility] Address [address] [place] [address] Care Team Providers Care Refinery Operator Crude Unit Name Role Phone Star FARLEY, [place] Primary Care Provider Myron Costello [phone] Allergies Allergen (clinical drug ingredient) Drug/Non Drug [...] W/U Status Risk Notes Problem Esophageal reflux (328999216) Esophageal reflux (K21.9) Active confirmed Problem Screening for malignant neoplasm of colon (160846404) Encounter for screening for malignant neoplasm of colon (Z12.11) Active confirmed Problem Gastroesophageal reflux disease (897444233) Gastroesophageal reflux disease, esophagitis presence not specified (K21.9) Active confirmed Problem Anemia (274521593) Anemia, unspecified type (D64.9) Active confirmed Problem Graham esophagus (078289245) 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 Problem Graham's esophagus (387300756) 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 Plan Of Treatment Pending Test Test Name Order Date Pathology 10/03/2022 Future Test Test Name Order Date UPPER GI ENDOSCOPY 03/17/2019 COLONOSCOPY 03/17/2019 UPPER GI ENDOSCOPY 08/21/2022 Next Appt Details Provider Name:Myron Trujillo , 11/02/2025 04:20:00 PM, [address] [place] [address], [address], [place], [address], Insurance Providers Payer Name Payer Address Payer Phone Subscriber Number Group Number Insured Name Patient Relationship to Insured Coverage Start Date Coverage End Date Aetna (No Referra l) [address] [address] [place] [address] [id number] DELANEY, ARLEN Self - patient is the insured Medical (General) History Medical History History ICD Code Denies [place],DM,CVA,renal disease COPD Hypertension Colonoscopy 10/2009 with a [...]
[2025-09-30 12:02] LABS: Prostate Specific Antigen 0.82 ng/mL (<0.05-4.0)
== END 2025-09-30 10:30 | disposition home or self-care (01) ==
LOC: HO.LAB 10:29
PROVIDERS: PCP Internal Medicine; Visit Provider Urology
DX: N40.1 Benign prostatic hyperplasia with lower urinary tract symptoms (principal); R39.12 Poor urinary stream; Z12.5 Encounter for screening for malignant neoplasm of prostate
CPT/HCPCS: 36415; 84153